=== PATIENT | female | born 1940 | race Caucasian/White ===

== ENCOUNTER 2019-07-22 17:13 | Inpatient (IN) ==
[2019-07-22 17:44] LABS: Hematocrit (blood only) 36.5 % (37-47); Mean Corpuscular Hgb Conc 32.9 g/dL (32-36); Mean Corpuscular Volume 91.3 fL (80-100); Mean Platelet Volume 10.6 fL (7.4-10.4); Platelet Count 197 K/uL (130-400); RDW Coefficient of Variation 16.8 % (11.5-14.5); White Blood Count 1.58 K/uL (4.8-10.8)
[2019-07-22 17:58] LABS: INR 1.1 (0.9-1.1); Partial Thromboplastin Time 28.2 Seconds (21.0-31.0); Prothrombin Time 11.4 Seconds (9.0-12.0)
[2019-07-22] MEDS ORDERED: SODIUM CHLORIDE 0.9% 1000ML 1,000 ML IV ONE ×2 (18:00→18:49)
[2019-07-22] MEDS ORDERED: ALBUT/IPRATROP 3MG/0.5MG NEB 3 ML VIAL NEB ONE (18:01)
[2019-07-22 18:02] LABS: Alanine Aminotransferase 60 U/L (12-78); Albumin Globulin Ratio 0.5 (0.9-2); Albumin Level 2.5 gm/dl (3.4-5.0); Alkaline Phosphatase 107 U/L (45-117); BUN Creatinine Ratio 26.5 (10-20); Bilirubin,Total 0.9 mg/dl (0.2-1); Blood Urea Nitrogen 30 mg/dl (7-18); Calcium 9.7 mg/dl (8.5-10.1); Carbon Dioxide 22 mmol/L (21-32); Chloride 108 mmol/L (98-107); Creatinine Clr Calc Pharmacy 34.1 ml/min; Est GFR (African American) 54.1; Est GFR (Non-African American) 46.7; Globulin 5.3 gm/dl (2.5-4.0); Glucose 106 mg/dl (70-99); Sodium 137 mmol/L (136-145); Total Protein 7.8 gm/dl (6.4-8.2); Troponin I < 0.015 ng/ml (0-0.045)
--- NOTE | 2019-07-22 18:05 | XRay Report ---
XR chest 1V portable CLINICAL HISTORY: 78 years-old Female presenting with SOB. TECHNIQUE: Portable upright AP view of the chest was obtained. COMPARISON: 04/22/2014. FINDINGS: Atherosclerosis of the aortic arch. Cardiac silhouette enlarged. Pulmonary vascular prominence. Bronc hial wall cuffing. Prominence of the interstitium. Reticular and more dense opacities in the left mid to lower lung and right lung base. No large effusion or pneumothorax. Degenerative changes of the th oracic spine. Upper abdomen normal. IMPRESSION: 1. Cardiac megaly with volume overload and congestive change. This is in part on a chronic basis. 2. Chronic basilar predominant bilateral infiltrates. Superimposed infection is not excluded. This c ould alternatively relate to chronic aspiration among other chronic lung disease. Electronically signed by: Chip Garza M.D. 07/22/2019 6:03 PM
[2019-07-22 18:41] LABS: Base Excess VBG -5.1 mEq/L; HCO3 VBG 22 mmol/L; Oxygen Saturation VBG < 60.0 %; PCO2 VBG 46 mmHg (38-50); PO2 VBG 23 mmHg; pH VBG 7.29 (7.36-7.41)
[2019-07-22 18:44] LABS: ALC (manual) 0.97 K/uL (1.2-3.4); ANC (manual) 0.43 K/uL (1.4-6.5); Eosinophils # (manual) 0.09 K/uL (0-0.5); Eosinophils % (manual) 5.5 %; Lymphocytes % (manual) 44.4 %; Monocytes # (manual) 0.09 K/uL (0.11-0.59); Monocytes % (manual) 5.5 %; Neutrophils # (manual) 0.43 K/uL (1.4-6.5); Neutrophils % (manual) 27.3 %; Reactive Lymphocytes # (manual) 0.27 K/uL; Reactive Lymphocytes % (manual) 17.3 %
[2019-07-22] MEDS ORDERED: PIPERACILLIN/TAZOBACTAM 4.5 GM/120 ML BAG IV ONE (18:47)
[2019-07-22] MEDS ORDERED: PIPERACILL/TAZOBAC CONSULT ACTIVE PRN (18:47)
[2019-07-22] MEDS ORDERED: VANCOMYCIN CONSULT ACTIVE PRN (18:48)
[2019-07-22] MEDS ORDERED: VANCOMYCIN HCL 1,250 MG in SODIUM CHLORIDE 0.9% 500 ML IV ONE (18:48)
[2019-07-22] MEDS ORDERED: VANCOMYCIN HCL MG in SODIUM CHLORIDE 0.9% 500 ML IV ONE (18:48)
[2019-07-22] MEDS ORDERED: OPTIRAY 320 125ml IV PRN (18:49)
--- NOTE | 2019-07-22 19:10 | CT Scan Report ---
CT angio chest PE protocol CLINICAL HISTORY: 78 years-old Female presenting with shortness of breath, clinical concern for pulmo nary embolus. TECHNIQUE: Multidetector CT angiography of the chest was performed after administration of intravenou s contrast. 3-D volumetric and/or maximum intensity projection (MIP) images were subsequently reconst ructed for review. IV contrast: 118 mL of Optiray 320. One or more dose lowering techniques were used consistent with the principles of ALARA (as low as reasonably achievable), including automatic expos ure control, mA or kV adjustment to individual patient size, and/or use of iterative reconstruction. COMPARISON: 04/22/2014. CT DOSE (mGy.cm): The estimated cumulative dose is 198.30 mGy.cm. FINDINGS: O[employer] Worker topogram: Diffuse reticular opacities. Pulmonary vasculature: The study is suboptimal for the assessment of the pulmonary vascular tree secondary to respiratory mo tion artifact. Allowing for limited image quality, no central filling defect to suggest pulmonary emb olus. Main pulmonary artery normal in size though the right and left pulmonary arteries are mildly en gorged. Mild flattening of the interventricular septum. No intracardiac filling defect. No reflux of contrast into the hepatic veins. Remaining chest: Soft tissues: Normal thyroid and thoracic inlet. Multiple prominent mediastinal lymph nodes in the ri ght paratracheal, prevascular, aortopulmonary window, and subcarinal regions. Bilateral hilar lymphad enopathy. These have progressed since the prior exam though some degree of lymphadenopathy was eviden t previously. 4 vessel aortic arch. Normal heart size. Coronary artery calcification. No pericardial or pleural effusion. The esophagus is mildly dilated. Lungs and airways: No pneumothorax. Central airways patent. Bronchiectasis is evident diffusely. Diff use peribronchial vascular bundle thickening. Significant interlobular septal thickening with mild en largement of the pulmonary arteries. Extensive solid reticular consolidation with a basilar predomina nce though there is also significant involvement of nondependent regions of the upper lobes extending to the apices more so on the right. The degree of peribronchovascular consolidation has significantl y progressed from prior. Patchy groundglass opacity is also superimposed more so in the right lung wi th upper lung predominance. Musculoskeletal: Degenerative changes of the spine. IMPRESSION: 1. Significant interval progression of peribronchovascular consolidation involving both lungs with a basilar predominance though involvement extends to the apices. This is consistent with progression o f fibrotic lung disease. 2. Patchy groundglass opacities more so in the upper lobes and greater on the right concerning for s uperimposed bronchopneumonia. 3. Allowing for limitations image quality, no pulmonary embolus. 4. Possible underlying pulmonary artery hypertension. 5. Esophageal dilatation could suggest underlying disease such as scleroderma among other etiologies . 6. Progressive lymphadenopathy likely related to the underlying inflammatory disease. Electronically signed by: Chip Garza M.D. 07/22/2019 7:08 PM
[2019-07-22] MEDS ORDERED: DOXYCYCLINE HYCLATE 100 MG in DEXTROSE 5% 100 ML IV STA (19:30)
[2019-07-22 19:50] LABS: Potassium 3.4 mmol/L (3.5-5.1)
--- NOTE | 2019-07-22 19:53 | Emergency Department Note ---
Entered by Salina Mercer acting as a scribe for History of Present Illness General Chief complaint: Shortness of Breath/Dyspnea Stated complaint: diff. breathing/cough Source: patient and other (nursing staff) History of Present Illness Onset (ago): day(s) 3 Location: chest Pain Consistency: + other (worsening) Quality: + other (shortness of breath) Relieved By: not by medication (nebulizers) Associated symptoms: + cough and + other (chronic back and leg pain); no chest pain The patient is a 78 year old female who presents to the Emergency Room with complaints of worsening shortness of breath starting 3 days ago. The patient states that for the last 3 days she has had a productive cough with green sputum. She reports that with it she has been short of breath. She states that she has been trying to use her nebulizers with no relief. She notes that she has still been smoking daily. Nursing staff notes that he received a breathing treatment and Solumedrol prior to arrival by EMS. They note that she was hypoxic for them as well. The patient complains of chronic back and leg pain. The patient denies being on oxygen at home and chest pain. Home Medications Home Medications Medication Instructions Recorded Confirmed Type ASPIRIN (ASPIRIN CHEWABLE) 81 mg PO DAILY #0 04/22/14 History CHOLECALCIFEROL (Vitamin D) 1,000 inter.unit PO DAILY #0 tab 04/22/14 History Lisinopril (Zestril) 5 mg PO QAM #0 tab 04/22/14 History Metoprolol Tartrate (Lopressor) 25 mg PO BID #0 tab 04/22/14 History (Lopressor) OTC COLD CAPS 1 - 2 cap PO DIRECTED #0 04/22/14 History Simvastatin (Zocor) 40 mg PO QPM #0 tab 04/22/14 History Cefuroxime Axetil 500 mg PO BID 4 Days #0 04/28/14 Rx Diphenhy/Alum/Mag/Sucralfa (Magic 1 tsp PO Q4H PRN 5 Days #0 ml 04/28/14 Rx Swizzle - Diphenhy/Alum/Mag/Sucralfa) GUAIFENESIN (ROBITUSSIN) 100 mg PO Q6H PRN 5 Days #0 04/28/14 Rx Prednisone 20 mg PO BID #20 tab 04/28/14 Rx atorvastatin 20 mg PO DAILY 07/22/19 07/22/19 History folic acid 1 mg PO [id number] 07/22/19 07/22/19 History methotrexate sodium 15 mg PO WK 07/22/19 07/22/19 History Allergies Allergy/AdvReac Type Severity Reaction Status Date / Time albuterol AdvReac Intermediate JITTERY Verified 04/23/14 12:15 FROM ALBUTEROL NEBS Past Med/Surg History Medical History Fibrotic lung diseases (Acute) HTN (hypertension) (Acute) Hyperlipemia (Acute) Myocardial infarct (Acute) CVA (cerebral infarction) (Acute) Pneumonia (Acute) Respiratory distress (Acute 04/22/14) History of COPD Surgical History H/O cardiac catheterization (Acute) Family History Other Family history non-contributory Social History marital status: current occupational status: retired Feels Safe at Home: Yes Smoking Status: Current every day smoker Review of Systems See HPI for pertinent positives & negatives. and A total of 10 systems reviewed and were otherwise negative Physical Exam Vital Signs Vital Signs - 24 hr 07/22/19 17:32 07/22/19 17:33 07/22/19 17:59 Sepsis Recent Fever Within 48 Hours No Sepsis Action Taken by Nursing No Action Required Pulse Oximetry Post Tiitration Pulse Rate 126 H 124 H 118 H Pulse Rate [Apical] Pulse Rate from SpO2 Sensor 124 H 120 H Pulse Rhythm Regular Pulse Strength Normal Respiratory Rate 21 34 H 33 H Respiratory Effort / Characteristics Labored Respiratory Depth Normal Respiratory Pattern Regular Blood Pressure 107/70 101/65 Blood Pressure Mean 82 77 Blood Pressure Position Lying Pulse Oximetry 88 L 93 90 Oxygen Delivery Method Room Air Oxygen Flow Rate 4 07/22/19 18:00 07/22/19 18:02 07/22/19 18:14 Sepsis Recent Fever Within 48 Hours Sepsis Action Taken by Nursing Pulse Oximetry Post Tiitration 91 Pulse Rate 120 H 119 H Pulse Rate [Apical] Pulse Rate from SpO2 Sensor 120 H 123 H Pulse Rhythm Pulse Strength Respiratory Rate 30 H 29 H Respiratory Effort / Characteristics Respiratory Depth Respiratory Pattern Blood Pressure 101/82 Blood Pressure Mean 88 Blood Pressure Position Pulse Oximetry 91 91 88 L Oxygen Delivery Method Room Air Oxygen Flow Rate 4 07/22/19 18:29 07/22/19 18:30 07/22/19 19:00 Sepsis Recent Fever Within 48 Hours Sepsis Action Taken by Nursing Pulse Oximetry Post Tiitration Pulse Rate 113 H 107 H Pulse Rate [Apical] 114 H Pulse Rate from SpO2 Sensor 113 H 107 H Pulse Rhythm Pulse Strength Respiratory Rate 26 H 28 H 28 H Respiratory Effort / Characteristics Spontaneous Respiratory Depth Respiratory Pattern Blood Pressure 96/69 L Blood Pressure Mean 78 Blood Pressure Position Pulse Oximetry 93 94 95 Oxygen Delivery Method Nasal Cannula Oxygen Flow Rate 4 07/22/19 19:30 Sepsis Recent Fever Within 48 Hours Sepsis Action Taken by Nursing Pulse Oximetry Post Tiitration Pulse Rate 117 H Pulse Rate [Apical] Pulse Rate from SpO2 Sensor 117 H Pulse Rhythm Pulse Strength Respiratory Rate 31 H Respiratory Effort / Characteristics Respiratory Depth Respiratory Pattern Blood Pressure 109/66 Blood Pressure Mean 80 Blood Pressure Position Pulse Oximetry 98 Oxygen Delivery Method Oxygen Flow Rate GENERAL: Awake, alert, weak appearing on O2 HENT: Normocephalic, atraumatic. EYES: Normal conjunctiva. Sclera non-icteric. NECK: Supple. No nuchal rigidity. RESPIRATORY: Increased work of breathing. Diffuse wheezes. CARDIAC: Tachycardic rate. Normal rhythm. Extremities warm and well perfused. GI: Soft, non-distended. No tenderness to palpation. RECTAL: Deferred. MUSCULOSKELETAL: Atraumatic. Chest examination reveals no tenderness. LOWER EXTREMITIES: Calves are equal size bilaterally and non-tender. No edema NEURO: Normal sensorium. No sensory or motor deficits noted. No facial droop. SKIN: Warm and dry. No rash or jaundice noted. Course 1800: Past medical records reviewed. The patient was evaluated in room B10. A complete history and physical exam was performed. 1910: I reevaluated the patient and updated her on her test results. I discussed the treatment plan with her. She verbally agrees and understands. 1920: I discussed the patient's case with Dr. Mihaela Ahuja. He will evaluate the patient for further management. Consultations Consultation #1: I discussed the patient's case with Dr. Mihaela Ahuja. He will evaluate the patient for further management. Time: 19:20 Administered Medications Vancomycin HCl 1,250 mg/ (Sodium Chloride) 525 mls @ 200 mls/hr IV NOW ONE Stop: 07/22/19 21:25 Last Admin: 07/22/19 19:26 Dose: 200 mls/hr Documented by: [id number] Ioversol (Optiray 320 125ml) 118 ml IV ONCE PRN PRN Reason: Interaction Checking Stop: 07/26/19 18:48 Last Admin: 07/22/19 18:49 Dose: 118 ml Documented by: [id number] Discontinued Medications Albuterol (Duoneb) 12 ml NEB ONE ONE Stop: 07/22/19 18:02 Last Admin: 07/22/19 18:23 Dose: 12 ml Documented by: [id number] Sodium Chloride (Nss 1000ml) 1,000 mls @ 999 mls/hr IV .Q1H1M ONE Stop: 07/22/19 19:00 Last Infusion: 07/22/19 19:06 Dose: 0 mls/hr Documented by: [id number] Admin: 07/22/19 18:13 Dose: 999 mls/hr Documented by: [id number] Piperacillin Sod/Tazobactam Sod (Zosyn) 4.5 gm in 120 mls @ 240 mls/hr IV NOW ONE Stop: 07/22/19 19:16 Last Infusion: 07/22/19 19:28 Dose: 0 mls/hr Documented by: [id number] Admin: 07/22/19 19:02 Dose: 240 mls/hr Documented by: [id number] Sodium Chloride (Nss 1000ml) 1,000 mls @ 999 mls/hr IV .Q1H1M ONE Stop: 07/22/19 19:49 Last Admin: 07/22/19 19:02 Dose: 999 mls/hr Documented by: [id number] Medical Decision Making Differential Diagnosis Differential diagnoses includes but is not limited to pneumonia, bronchitis, COPD/Asthma exacerbation, pneumothorax, pulmonary embolism, congestive heart failure, acute coronary syndrome Medical Records Attestation: I reviewed the patient's medical records. Home Medications Current Medication List: was personally reviewed by me Laboratory Data Attestation: I reviewed the patient's lab results. Result diagrams: 07/22/19 17:28 07/22/19 19:26 Lab Results 07/22/19 07/22/19 07/22/19 Range/Units 17:28 17:28 17:28 WBC 1.58 L (4.8-10.8) K/uL RBC 4.00 L (4.2-5.4) M/uL Hgb 12.0 (12.0-16.0) g/dL Hct 36.5 L (37-47) % MCV 91.3 (80-100) fL MCH 30.0 (25-34) pg MCHC 32.9 (32-36) g/dL RDW Std Deviation 56.0 H (36.4-46.3) fL RDW Coeff of Jose Manuel 16.8 H (11.5-14.5) % Plt Count 197 (130-400) K/uL MPV 10.6 H (7.4-10.4) fL Neutrophils % (Manual) 27.3 % Lymphocytes % (Manual) 44.4 % Reactive Lymphs % (Man) 17.3 % Monocytes % (Manual) 5.5 % Eosinophils % (Manual) 5.5 % Neutrophils # (Manual) 0.43 L (1.4-6.5) K/uL Total Absolute Neuts 0.43 L* (1.4-6.5) K/uL Lymphocytes # (Manual) 0.70 L (1.2-3.4) K/uL Reactive Lymphs # 0.27 K/uL Total Abs Lymphocytes 0.97 L (1.2-3.4) K/uL Monocytes # (Manual) 0.09 L (0.11-0.59) K/uL Eosinophils # (Manual) 0.09 (0-0.5) K/uL PT 11.4 (9.0-12.0) Seconds INR 1.1 (0.9-1.1) APTT 28.2 (21.0-31.0) Seconds PTT Ratio 1.0 VBG pH (7.36-7.41) VBG pCO2 (38-50) mmHg VBG pO2 mmHg VBG HCO3 mmol/L VBG O2 Saturation % VBG Base Excess mEq/L Barometric Pressure mm/Hg Sodium 137 (136-145) mmol/L Potassium (3.5-5.1) mmol/L Chloride 108 H (98-107) mmol/L Carbon Dioxide 22 (21-32) mmol/L Anion Gap 7.0 (3-11) BUN 30 H (7-18) mg/dl Creatinine 1.14 (0.6-1.2) mg/dl Est Cr Clr Drug Dosing 34.1 ml/min Est GFR ( Amer) 54.1 Est GFR (Non-Af Amer) 46.7 BUN/Creatinine Ratio 26.5 H (10-20) Glucose 106 H (70-99) mg/dl Lactate (0.4-2.0) mmol/L Calcium 9.7 (8.5-10.1) mg/dl Total Bilirubin 0.9 (0.2-1) mg/dl AST (15-37) U/L ALT 60 (12-78) U/L Alkaline Phosphatase 107 (45-117) U/L Troponin I < 0.015 (0-0.045) ng/ml Total Protein 7.8 (6.4-8.2) gm/dl Albumin 2.5 L (3.4-5.0) gm/dl Globulin 5.3 H (2.5-4.0) gm/dl Albumin/Globulin Ratio 0.5 L (0.9-2) 07/22/19 07/22/19 07/22/19 Range/Units 18:08 18:28 19:26 WBC (4.8-10.8) K/uL RBC (4.2-5.4) M/uL Hgb (12.0-16.0) g/dL Hct (37-47) % MCV (80-100) fL MCH (25-34) pg MCHC (32-36) g/dL RDW Std Deviation (36.4-46.3) fL RDW Coeff of Jose Manuel (11.5-14.5) % Plt Count (130-400) K/uL MPV (7.4-10.4) fL Neutrophils % (Manual) % Lymphocytes % (Manual) % Reactive Lymphs % (Man) % Monocytes % (Manual) % Eosinophils % (Manual) % Neutrophils # (Manual) (1.4-6.5) K/uL Total Absolute Neuts (1.4-6.5) K/uL Lymphocytes # (Manual) (1.2-3.4) K/uL Reactive Lymphs # K/uL Total Abs Lymphocytes (1.2-3.4) K/uL Monocytes # (Manual) (0.11-0.59) K/uL Eosinophils # (Manual) (0-0.5) K/uL PT (9.0-12.0) Seconds INR (0.9-1.1) APTT (21.0-31.0) Seconds PTT Ratio VBG pH 7.29 L (7.36-7.41) VBG pCO2 46 (38-50) mmHg VBG pO2 23 mmHg VBG HCO3 22 mmol/L VBG O2 Saturation < 60.0 % VBG Base Excess -5.1 mEq/L Barometric Pressure 737.4 mm/Hg Sodium (136-145) mmol/L Potassium Cancelled (3.5-5.1) mmol/L Chloride (98-107) mmol/L Carbon Dioxide (21-32) mmol/L Anion Gap (3-11) BUN (7-18) mg/dl Creatinine (0.6-1.2) mg/dl Est Cr Clr Drug Dosing ml/min Est GFR ( Amer) Est GFR (Non-Af Amer) BUN/Creatinine Ratio (10-20) Glucose (70-99) mg/dl Lactate 3.7 H* (0.4-2.0) mmol/L Calcium (8.5-10.1) mg/dl Total Bilirubin (0.2-1) mg/dl AST Cancelled (15-37) U/L ALT (12-78) U/L Alkaline Phosphatase (45-117) U/L Troponin I (0-0.045) ng/ml Total Protein (6.4-8.2) gm/dl Albumin (3.4-5.0) gm/dl Globulin (2.5-4.0) gm/dl Albumin/Globulin Ratio (0.9-2) 07/22/19 Range/Units 19:26 WBC (4.8-10.8) K/uL RBC (4.2-5.4) M/uL Hgb (12.0-16.0) g/dL Hct (37-47) % MCV (80-100) fL MCH (25-34) pg MCHC (32-36) g/dL RDW Std Deviation (36.4-46.3) fL RDW Coeff of Jose Manuel (11.5-14.5) % Plt Count (130-400) K/uL MPV (7.4-10.4) fL Neutrophils % (Manual) % Lymphocytes % (Manual) % Reactive Lymphs % (Man) % Monocytes % (Manual) % Eosinophils % (Manual) % Neutrophils # (Manual) (1.4-6.5) K/uL Total Absolute Neuts (1.4-6.5) K/uL Lymphocytes # (Manual) (1.2-3.4) K/uL Reactive Lymphs # K/uL Total Abs Lymphocytes (1.2-3.4) K/uL Monocytes # (Manual) (0.11-0.59) K/uL Eosinophils # (Manual) (0-0.5) K/uL PT (9.0-12.0) Seconds INR (0.9-1.1) APTT (21.0-31.0) Seconds PTT Ratio VBG pH (7.36-7.41) VBG pCO2 (38-50) mmHg VBG pO2 mmHg VBG HCO3 mmol/L VBG O2 Saturation % VBG Base Excess mEq/L Barometric Pressure mm/Hg Sodium (136-145) mmol/L Potassium 3.4 L (3.5-5.1) mmol/L Chloride (98-107) mmol/L Carbon Dioxide (21-32) mmol/L Anion Gap (3-11) BUN (7-18) mg/dl Creatinine (0.6-1.2) mg/dl Est Cr Clr Drug Dosing ml/min Est GFR ( Amer) Est GFR (Non-Af Amer) BUN/Creatinine Ratio (10-20) Glucose (70-99) mg/dl Lactate (0.4-2.0) mmol/L Calcium (8.5-10.1) mg/dl Total Bilirubin (0.2-1) mg/dl AST (15-37) U/L ALT (12-78) U/L Alkaline Phosphatase (45-117) U/L Troponin I (0-0.045) ng/ml Total Protein (6.4-8.2) gm/dl Albumin (3.4-5.0) gm/dl Globulin (2.5-4.0) gm/dl Albumin/Globulin Ratio (0.9-2) Imaging Data Radiologist's Impression: Radiology results as stated below per my review and the radiologist's interpretation: XR chest 1V portable CLINICAL HISTORY: 78 years-old Female presenting with SOB. TECHNIQUE: Portable upright AP view of the chest was obtained. COMPARISON: 04/22/2014. FINDINGS: Atherosclerosis of the aortic arch. Cardiac silhouette enlarged. Pulmonary vascular prominence. Bronchial wall cuffing. Prominence of the interstitium. Reticular and more dense opacities in the left mid to lower lung and right lung base. No large effusion or pneumothorax. Degenerative changes of the thoracic spine. Upper abdomen normal. IMPRESSION: 1. Cardiac megaly with volume overload and congestive change. This is in part on a chronic basis. 2. Chronic basilar predominant bilateral infiltrates. Superimposed infection is not excluded. This could alternatively relate to chronic aspiration among other chronic lung disease. Electronically signed by: Chip Garza M.D. 07/22/2019 6:[address] angio chest PE protocol CLINICAL HISTORY: 78 years-old Female presenting with shortness of breath, clinical concern for pulmonary embolus. TECHNIQUE: Multidetector CT angiography of the chest was performed after administration of intravenous contrast. 3-D volumetric and/or maximum intensity projection (MIP) images were subsequently reconstructed for review. IV contrast: 118 mL of Optiray 320. One or more dose lowering techniques were used consistent with the principles of ALARA (as low as reasonably achievable), including automatic exposure control, mA or kV adjustment to individual patient size, and/or use of iterative reconstruction. COMPARISON: 04/22/2014. CT DOSE (mGy.cm): The estimated cumulative dose is 198.30 mGy.cm. FINDINGS: [employer] topogram: Diffuse reticular opacities. Pulmonary vasculature: The study is suboptimal for the assessment of the pulmonary vascular tree secondary to respiratory motion artifact. Allowing for limited image quality, no central filling defect to suggest pulmonary embolus. Main pulmonary artery normal in size though the right and left pulmonary arteries are mildly engorged. Mild flattening of the interventricular septum. No intracardiac filling defect. No reflux of contrast into the hepatic veins. Remaining chest: Soft tissues: Normal thyroid and thoracic inlet. Multiple prominent mediastinal lymph nodes in the right paratracheal, prevascular, aortopulmonary window, and subcarinal regions. Bilateral hilar lymphadenopathy. These have progressed since the prior exam though some degree of lymphadenopathy was evident previously. 4 vessel aortic arch. Normal heart size. Coronary artery calcification. No pericardial or pleural effusion. The esophagus is mildly dilated. Lungs and airways: No pneumothorax. Central airways patent. Bronchiectasis is evident diffusely. Diffuse peribronchial vascular bundle thickening. Significant interlobular septal thickening with mild enlargement of the pulmonary arteries. Extensive solid reticular consolidation with a basilar predominance though there is also significant involvement of nondependent regions of the upper lobes extending to the apices more so on the right. The degree of peribronchovascular consolidation has significantly progressed from prior. Patchy groundglass opacity is also superimposed more so in the right lung with upper lung predominance. Musculoskeletal: Degenerative changes of the spine. IMPRESSION: 1. Significant interval progression of peribronchovascular consolidation involving both lungs with a basilar predominance though involvement extends to the apices. This is consistent with progression of fibrotic lung disease. 2. Patchy groundglass opacities more so in the upper lobes and greater on the right concerning for superimposed bronchopneumonia. 3. Allowing for limitations image quality, no pulmonary embolus. 4. Possible underlying pulmonary artery hypertension. 5. Esophageal dilatation could suggest underlying disease such as scleroderma among other etiologies. 6. Progressive lymphadenopathy likely related to the underlying inflammatory disease. Electronically signed by: Chip Garza M.D. 07/22/2019 7:08 PM ECG Data Attestation: I personally reviewed and interpreted this ECG as follows: Indication: SOB/dyspnea Rate (beats per minute): 125 Rhythm: sinus tachycardia Findings: + other (normal intervals); no PVC, no ST depression and no ST elevation Blood Pressure Blood Pressure Findings: Normal blood pressure Blood Pressure Disposition: did not require urgent referral MDM Narrative Patient is a 78-year-old female with a past medical history including pneumonia, CAD, interstitial lung disease, CVA, hypertension presenting today reporting increased shortness of breath for last 3 days with productive cough. Continues to smoke. EMS was called today and found the patient be 75% on room air. Denies any chest pain. DuoNeb's and Solu-Medrol given prior to arrival. Patient still hypoxic on room air here requiring nasal cannula oxygen. Patient's laboratory studies show new onset neutropenia without significant anemia. Chest x-ray completed with EKG chronic findings. Given this and the new hypoxia did complete a CT of the chest to further evaluate for possible pneumonia or PE. Troponins negative. Patient is afebrile here but have some concern with her increased oxygen requirement this could be infectious of blood cultures and lactate were obtained. VBG obtained. VBG shows a pH of 7.29 without significant hypercarbia. Patient is again neutropenic; ?from sepsis. Lactate elevated 3.7. Given 2 L normal saline bolus. Cultures were again obtained. CT scan with evidence of bronchopneumonia as well as progression of fibrotic lung disease. No evidence of PE. Vancomycin and Zosyn ordered for broad general coverage. Believe the patient suffering from sepsis likely pulmonary origin. Patient requires admission. [facility] hospitalist contacted. Impression & Plan Sepsis, Pneumonia, Neutropenia, COPD exacerbation Critical Care Time Critical Care Time: Yes Total Critical Care Time: 42 I have personally spent 42 minutes of critical care time in the direct management of this patient. This includes bedside care, interpretation of diagnostic studies, and testing, discussion with consultants, patient, and family members, and other required patient management activities. This 42 minutes is in excess of all separately billable procedures. Discharge Plan Visit Data Chief Complaint: Shortness of Breath/Dyspnea Stated Complaint: diff. breathing/cough ED Provider: Edmund Ferrell Discharge Problem: Sepsis, Pneumonia, Neutropenia, COPD exacerbation Patient Disposition: Being Evaluated by Hospitalist Forms Stand Alone Forms: My [facility] [place] XOR.MOTORS Prescriptions Prescriptions: No Action ASPIRIN (ASPIRIN CHEWABLE) 81 MG CHEWABLE TAB 81 mg PO DAILY Qty: 0 RF: 0 CHOLECALCIFEROL (Vitamin D) 1,000 INTER.UNIT tablet 1,000 inter.unit PO DAILY Qty: 0 RF: 0 Lisinopril (Zestril) 5 MG tablet 5 mg PO QAM Qty: 0 RF: 0 Metoprolol Tartrate (Lopressor) (Lopressor) 25 MG tablet 25 mg PO BID Qty: 0 RF: 0 OTC COLD CAPS 1 - 2 cap PO DIRECTED Qty: 0 RF: 0 Simvastatin (Zocor) 40 MG tablet 40 mg PO QPM Qty: 0 RF: 0 Cefuroxime Axetil 500 MG tablet 500 mg PO BID 4 Days Qty: 0 RF: 0 Diphenhy/Alum/Mag/Sucralfa (Magic Swizzle - Diphenhy/Alum/Mag/Sucralfa) suspension 1 tsp PO Q4H PRN (Reason: Pain) 5 Days Qty: 0 RF: 0 GUAIFENESIN (ROBITUSSIN) 100 MG/5 ML SOLTAB 100 mg PO Q6H PRN (Reason: Cough) 5 Days Qty: 0 RF: 0 Prednisone 20 MG tablet 20 mg PO BID Qty: 20 RF: 0 methotrexate sodium 2.5 mg tablet 15 mg PO WK RF: 0 folic acid 1 mg tablet 1 mg PO [id number] RF: 0 atorvastatin 20 mg tablet 20 mg PO DAILY RF: 0 Referrals Referrals: Vanessa Malone [Primary Care Provider] - Discharge Problem: Sepsis Qualifiers: Sepsis type: sepsis due to unspecified organism Sepsis acute organ dysfunction status: unspecified Qualified Code(s): A41.9 - Sepsis, unspecified organism Pneumonia Qualifiers: Pneumonia type: due to unspecified organism Laterality: unspecified laterality Lung location: unspecified part of lung Qualified Code(s): J18.9 - Pneumonia, unspecified organism Neutropenia Qualifiers: Neutropenia type: unspecified Qualified Code(s): D70.9 - Neutropenia, unspecified The scribe's documentation has been prepared under my direction and personally reviewed by me in its entirety. I confirm that the note above accurately reflect s all work, treatment, procedures, and medical decision making performed by me.
[2019-07-22] MEDS ORDERED: POTASSIUM CHLORIDE 20 MEQ TABCR PO STA (19:58)
[2019-07-22] MEDS ORDERED: LACTATED RINGER'S 1,000 ML IV ONE (19:58)
--- NOTE | 2019-07-22 19:59 | History & Physical Report ---
Date of Service July 22, 2019 Assessment & Plan (1) Acute hypoxemic respiratory failure: Secondary to RA-ILD exacerbation secondary to bilateral pneumonia No outpatient subspecialist follow-up. Severe sepsis SIRS plus lactic acid elevation plus hypoxemic respiratory failure secondary to above hx CAD, CVA as per records hypertension Off BP meds since 2 years ago Hypokalemia secondary to illness chronic pain as per records mood disorder, at baseline past tobacco abuse PCU Supplemental O2 Cultures, Zosyn, vancomycin IVF, follow lactic acid Pulmonary consult RE respiratory failure, ILD exacerbation Replace potassium DVT prophylaxis. Lovenox subcu Full code History of Present Illness Chief Complaint: Cough, S OB Primary Care Provider: Vanessa Malone History obtained from patient and records. Medical history significant for CAD, CVA, rheumatoid arthritis as per records, ILD as per ecords, hypertension, hyperlipidemia, chronic pain as per records, mood disorder, past tobacco abuse. Recent confinement [facility] April 2014 for bilateral pneumonia. Recent confinement [facility] December 2016 for neck surgery infection complicat ions. Postop patient noted to be hypoxemic/hypercarbic respiratory failure necessitating BiPAP. Interstitial lung disease attributed to rheumatoid arthritis as per records. BP meds stopped on discharge secondary to low blood pressure as per discharge note. Patient instructed to follow-up with Pulmonology and Rheumatology outpatient but was unable to comply. Few days history of worsening cough symptoms productive of greenish sputum with worsening shortness of breath. No chest pain. No aspiration. No relief with home nebulizer and outpatient steroid Rx initiated by PCP. Patient denies fluid retention. At home O2 sats noted to be in the 70s. DuoNeb and Solu-Medrol administered by EMS prior to ER arrival. At the ER, patient received IV vancomycin and Zosyn for sepsis. Medical History as above Surgical History : Neck surgery, hip replacement, partial thyroidectomy, cholecystectomy, hysterectomy, BTL, oviduct/ovary removal, knee surgery, a ppendectomy Family History : Lung cancer, cervical cancer, dementia, seizures Personal/Social history : Past tobacco abuse, no EtOH intake Allergies Allergy/AdvReac Type Severity Reaction Status Date / Time albuterol AdvReac Intermediate JITTERY Verified 04/23/14 12:15 FROM ALBUTEROL [facility] Home Medications Home Medications Medication Instructions Recorded Confirmed Type albuterol sulfate 2 puff INHALATION Q6H PRN 07/22/19 07/22/19 History amitriptyline 50 mg PO HS 07/22/19 07/22/19 History atorvastatin 20 mg PO DAILY 07/22/19 07/22/19 History escitalopram oxalate 20 mg PO QAM 07/22/19 07/22/19 History folic acid 1 mg PO [id number] 07/22/19 07/22/19 History gabapentin 300 mg PO TID 07/22/19 07/22/19 History methotrexate sodium 15 mg PO WK 07/22/19 07/22/19 History pantoprazole 20 mg PO DAILY 07/22/19 07/22/19 History tramadol 50 mg PO Q8H PRN 07/22/19 07/22/19 History Past Med/Surg History Medical History Fibrotic lung diseases (Acute) HTN (hypertension) (Acute) Hyperlipemia (Acute) Myocardial infarct (Acute) CVA (cerebral infarction) (Acute) Pneumonia (Acute) Respiratory distress (Acute 04/22/14) History of COPD Surgical History H/O cardiac catheterization (Acute) Family History Other Family history non-contributory Social History Preferred Language: Macedonian Communication Ability: Effective Wig Stylist Required: No Beliefs That Will Affect Care: None marital status: Current Living Situation: Family current occupational status: retired Other Information That Helps Us Care for You: No Feels Safe at Home: Yes Safety Concerns: Feels Safe At This Time Smoking Status: Unknown if ever smoked Hx Alcohol Use: No Hx Substance Use: No Review of Systems Review of Systems: As per HPI, all 10 systems reviewed, all other ROS negative Physical Exam Physical Exam: GENERAL: uncomfortable, respiratory distress SKIN: Normal color, warm HEENT: [place] palpebral conjunctivae, no ptosis, dry buccal mucosa, O2 mask in place NECK : Supple, no tenderness CHEST : Bilateral rhonchi, occasional expiratory wheezes, no tenderness HEART : Tachycardic, no obvious murmurs ABDOMEN: Some distention, nontender EXTREMITIES : No LE swelling/tenderness, no other conspicuous deformities noted NEUROLOGIC : Coherent, no facial asymmetry, no other gross focality Results & Data Vital Signs (Past 12 Hours) Vital Signs Pulse Pulse Resp BP Pulse Ox 07/22/19 19:30 117 H 31 H 109/66 98 07/22/19 19:00 107 H 28 H 96/69 L 95 07/22/19 18:30 113 H 28 H 94 07/22/19 18:29 114 H 26 H 93 07/22/19 18:14 88 L 07/22/19 18:02 119 H 29 H 91 07/22/19 18:00 120 H 30 H 101/82 91 07/22/19 17:59 118 H 33 H 101/65 90 07/22/19 17:33 124 H 34 H 93 07/22/19 17:32 126 H 21 107/70 88 L Laboratory Results Laboratory Results WBC 1.58 K/uL (4.8-10.8) L 07/22/19 17:28 RBC 4.00 M/uL (4.2-5.4) L 07/22/19 17:28 Hgb 12.0 g/dL (12.0-16.0) 07/22/19 17:28 Hct 36.5 % (37-47) L 07/22/19 17:28 MCV 91.3 fL (80-100) 07/22/19 17:28 MCH 30.0 pg (25-34) 07/22/19 17:28 MCHC 32.9 g/dL (32-36) 07/22/19 17:28 RDW Std Deviation 56.0 fL (36.4-46.3) H 07/22/19 17:28 RDW Coeff of Jose Manuel 16.8 % (11.5-14.5) H 07/22/19 17:28 Plt Count 197 K/uL (130-400) 07/22/19 17:28 MPV 10.6 fL (7.4-10.4) H 07/22/19 17:28 Neutrophils % (Manual) 27.3 % 07/22/19 17:28 Lymphocytes % (Manual) 44.4 % 07/22/19 17:28 Reactive Lymphs % (Man) 17.3 % 07/22/19 17:28 Monocytes % (Manual) 5.5 % 07/22/19 17:28 Eosinophils % (Manual) 5.5 % 07/22/19 17:28 Neutrophils # (Manual) 0.43 K/uL (1.4-6.5) L 07/22/19 17:28 Total Absolute Neuts 0.43 K/uL (1.4-6.5) L* 07/22/19 17:28 Lymphocytes # (Manual) 0.70 K/uL (1.2-3.4) L 07/22/19 17:28 Reactive Lymphs # 0.27 K/uL 07/22/19 17:28 Total Abs Lymphocytes 0.97 K/uL (1.2-3.4) L 07/22/19 17:28 Monocytes # (Manual) 0.09 K/uL (0.11-0.59) L 07/22/19 17:28 Eosinophils # (Manual) 0.09 K/uL (0-0.5) 07/22/19 17:28 PT 11.4 Seconds (9.0-12.0) 07/22/19 17:28 INR 1.1 (0.9-1.1) 07/22/19 17:28 APTT 28.2 Seconds (21.0-31.0) 07/22/19 17:28 PTT Ratio 1.0 07/22/19 17:28 VBG pH 7.29 (7.36-7.41) L 07/22/19 18:28 VBG pCO2 46 mmHg (38-50) 07/22/19 18:28 VBG pO2 23 mmHg 07/22/19 18:28 VBG HCO3 22 mmol/L 07/22/19 18:28 VBG O2 Saturation < 60.0 % 07/22/19 18:28 VBG Base Excess -5.1 mEq/L 07/22/19 18:28 Barometric Pressure 737.4 mm/Hg 07/22/19 18:28 Sodium 137 mmol/L (136-145) 07/22/19 17:28 Potassium 3.4 mmol/L (3.5-5.1) L 07/22/19 19:26 Potassium Cancelled 07/22/19 19:26 Chloride 108 mmol/L (98-107) H 07/22/19 17:28 Carbon Dioxide 22 mmol/L (21-32) 07/22/19 17:28 Anion Gap 7.0 (3-11) 07/22/19 17:28 BUN 30 mg/dl (7-18) H 07/22/19 17:28 Creatinine 1.14 mg/dl (0.6-1.2) 07/22/19 17:28 Est Cr Clr Drug Dosing 34.1 ml/min 07/22/19 17:28 Est GFR ( Amer) 54.1 07/22/19 17:28 Est GFR (Non-Af Amer) 46.7 07/22/19 17:28 BUN/Creatinine Ratio 26.5 (10-20) H 07/22/19 17:28 Glucose 106 mg/dl (70-99) H 07/22/19 17:28 Lactate 3.7 mmol/L (0.4-2.0) H* 07/22/19 18:08 Calcium 9.7 mg/dl (8.5-10.1) 07/22/19 17:28 Total Bilirubin 0.9 mg/dl (0.2-1) 07/22/19 17:28 AST Cancelled 07/22/19 19:26 ALT 60 U/L (12-78) 07/22/19 17:28 Alkaline Phosphatase 107 U/L (45-117) 07/22/19 17:28 Troponin I < 0.015 ng/ml (0-0.045) 07/22/19 17:28 Total Protein 7.8 gm/dl (6.4-8.2) 07/22/19 17:28 Albumin 2.5 gm/dl (3.4-5.0) L 07/22/19 17:28 Globulin 5.3 gm/dl (2.5-4.0) H 07/22/19 17:28 Albumin/Globulin Ratio 0.5 (0.9-2) L 07/22/19 17:[address] chest: 1. Significant interval progression of peribronchovascular consolidation involving both lungs with a basilar predominance though involvement extends to the apices. This is consistent with progression of fibrotic lung disease. 2. Patchy groundglass opacities more so in the upper lobes and greater on the right concerning for superimposed bronchopneumonia. 3. Allowing for limitations image quality, no pulmonary embolus. 4. Possible underlying pulmonary artery hypertension. 5. Esophageal dilatation could suggest underlying disease such as scleroderma among other etiologies. 6. Progressive lymphadenopathy likely related to the underlying inflammatory disease. EKG as per my interpretation : Rate 125, sinus tachycardia, LAD, LAFB, T wave flattening lateral leads
[2019-07-22 20:05] LABS: Magnesium 1.7 mg/dl (1.8-2.4); Thyroid Stimulating Hormone 1.28 uIu/ml (0.300-4.500)
[2019-07-22] MEDS ORDERED: MAGNESIUM SULFATE / D5W 1 GM/100 ML BAG IV ONE (20:15)
[2019-07-22 21:00] LABS: Influenza A virus by PCR Neg for Influ A (Neg); Influenza B virus by PCR Neg for Influ B (Neg)
[2019-07-22] MEDS ORDERED: PROMETHAZINE HCL 12.5 MG in SODIUM CHLORIDE 0.9% 50 ML IV PRN (21:03)
[2019-07-22] MEDS ORDERED: NITROGLYCERIN SL 0.4 MG/TAB TAB SL PRN (21:03)
[2019-07-22] MEDS ORDERED: NORMOSOL-R 1,000 ML IV SCH (22:00)
--- NOTE | 2019-07-22 22:02 | Pharmacy Report ---
Pharmacy Abx Initial Consult - Date of Service July 22, 2019 - Pharmacy Dosing Scope Date of Consult: 07/22/19 Consultation requested by: Dr. Chauhan Pharmacy is consulted to initiate vancomycin and Zosyn IV dosing therapy, order appropriate labs and adjust drug dose/frequency. - Subjective The patient is a 78 year old F admitted on 07/22/19 20:07. - Objective Height: 5 ft Weight: 61.2 kg Vital Signs (Past 12hrs): Vital Signs Temp Pulse Pulse Resp BP BP Pulse Ox 07/22/19 21:19 36.7 C 120 H 24 121/68 90 07/22/19 20:30 120 H 31 H 111/53 L 95 07/22/19 20:00 121 H 35 H 121/64 99 07/22/19 19:30 117 H 31 H 109/66 98 07/22/19 19:00 107 H 28 H 96/69 L 95 07/22/19 18:30 113 H 28 H 94 07/22/19 18:29 114 H 26 H 93 07/22/19 18:14 88 L 07/22/19 18:02 119 H 29 H 91 07/22/19 18:00 120 H 30 H 101/82 91 07/22/19 17:59 118 H 33 H 101/65 90 07/22/19 17:33 124 H 34 H 93 07/22/19 17:32 126 H 21 107/70 88 L Lab Results (24hrs): Laboratory Tests (24 Hours) 07/22/19 07/22/19 17:28 17:28 WBC 1.58 L Creatinine 1.14 Est Cr Clr Drug Dosing 34.1 Micro Results: 07/22/19 18:28 Aerobic Blood Culture - Pending Blood Anaerobic Blood Culture - Pending 07/22/19 18:08 Aerobic Blood Culture - Pending Blood Anaerobic Blood Culture - Pending - Assessment & Plan Assessment 78 year old F presented to [facility] ED on 07/22/19 with complaints of worsening shortness of breath (starting 3 days ago). Patient is a current every day smoker with a history of COPD (treated with albuterol only based on home med list). Admission labs: SCr: 1.14 mg/dL (CrCl: 34 mL/min), BUN: 30 mg/dL, BUN/Scr ratio: 26, WBC: 1.6, lactate 3.7 mmol/L - No recent SCr level to assess if this is baseline for the patient (suspect not given elevated BUN/SCr ratio) Plan Vancomycin and Zosyn for empiric treatment of possible pneumonia/sepsis Vancomycin IV * Estimated PK Parameters: Vd 0.7 L/kg, [place] .033 hr-1, t1/2 21 hr * BUN/SCr ratio elevated - SCr ordered for AM. Will adjust regimen as appropriate based on change in renal function. * Loading dose: 1250 mg (21 mg/kg) * Maintenance dose: 1000 mg IV (16 mg/kg) every 22 hours * Goal trough level for pneumonia/sepsis : 15 to 20 mcg/mL * Will order vanco trough if patient is to stay on vanco for more than 48 hours * MRSA swab ordered - will reassess need for vancomycin pending result Piperacillin/tazobactam * 4.5 g bolus administered over 30 minutes, then 3.375 g IV extended infusion every 8 hours for CrCl greater than 20 mL/min Pharmacy will continue to follow and will adjust dose/frequency as necessary. Thank you.
[2019-07-22] MEDS ORDERED: XOPENEX/ATROVENT 1.25mg/0.5MG NEB COMBO NEB PRN (22:27)
[2019-07-22] MEDS ORDERED: IPRATROPIUM BROMIDE NEB SOLN 0.02% 2.5 ML VIAL INH PRN (22:30)
[2019-07-22] MEDS ORDERED: LEVALBUTEROL 1.25MG/0.5ML NEB INH PRN (22:30)
[2019-07-22] MEDS: PIPERACILLIN/TAZOBACTAM 3.375 GM in DEXTROSE 5% 100 ML IV SCH (23:40)
[2019-07-23] MEDS: IPRATROPIUM BROMIDE NEB SOLN 0.02% 2.5 ML VIAL INH SCH ×4 (00:30→15:13)
[2019-07-23] MEDS: LEVALBUTEROL 1.25MG/0.5ML NEB INH SCH ×4 (00:30→15:13)
[2019-07-23] MEDS ORDERED: methylPREDNISolone 40 MG in SYRINGE 0 ML IV ONE (01:00)
[2019-07-23] MEDS ORDERED: XOPENEX/ATROVENT 1.25mg/0.5MG NEB COMBO NEB SCH (01:00)
[2019-07-23 01:23] LABS: Allen Test Pos (Pos); Base Excess ABG -7.5 mEq/L (-9-1.8); HCO3 ABG 19 mmol/L (19-24); PCO2 ABG 42 mmHg (35-46); PO2 ABG 57 mm/Hg (80-95); pH ABG 7.27 (7.35-7.45)
[2019-07-23] MEDS ORDERED: FUROSEMIDE 20 MG in SYRINGE 0 ML IV ONE (01:25)
[2019-07-23] MEDS ORDERED: MAGNESIUM SULFATE / D5W 1 GM/100 ML BAG IV ONE (01:45)
[2019-07-23] MEDS: POTASSIUM CHLORIDE / WTR 10 MEQ/100 ML PLCT IV SCH ×2 (02:00→02:55)
[2019-07-23 05:49] LABS: Hematocrit (blood only) 31.9 % (37-47); Hemoglobin 10.6 g/dL (12.0-16.0); Mean Corpuscular Hemoglobin 30.1 pg (25-34); Mean Corpuscular Hgb Conc 33.2 g/dL (32-36); Mean Corpuscular Volume 90.6 fL (80-100); Mean Platelet Volume 9.9 fL (7.4-10.4); Platelet Count 162 K/uL (130-400); RDW Coefficient of Variation 16.7 % (11.5-14.5); RDW Standard Deviation 54.7 fL (36.4-46.3); Red Blood Count 3.52 M/uL (4.2-5.4); White Blood Count 1.59 K/uL (4.8-10.8)
[2019-07-23 06:32] LABS: ALC (manual) 0.18 K/uL (1.2-3.4); ANC (manual) 1.31 K/uL (1.4-6.5); Echinocytes 1+; Lymphocytes # (manual) 0.18 K/uL (1.2-3.4); Lymphocytes % (manual) 11.5 %; Monocytes # (manual) 0.09 K/uL (0.11-0.59); Monocytes % (manual) 5.8 %; Neutrophils # (manual) 1.31 K/uL (1.4-6.5); Neutrophils % (manual) 82.7 %; Toxic Granulation 1+
[2019-07-23 06:41] LABS: Calcium 8.2 mg/dl (8.5-10.1); Creatinine Clr Calc Pharmacy 45.6 ml/min; Est GFR (African American) 77.1; Est GFR (Non-African American) 66.6; Magnesium 2.4 mg/dl (1.8-2.4); Potassium 4.2 mmol/L (3.5-5.1)
--- NOTE | 2019-07-23 07:27 | XRay Report ---
SINGLE VIEW CHEST CLINICAL HISTORY: Dyspnea. FINDINGS: An AP, portable, upright chest radiograph is compared to chest x-ray and chest CT dated 07/22/2019 as well as chest x-ray dated 04/22/2014. The examination is degraded by portable technique and patient rotation. The heart is top normal for projection. Changes of chronic interstitial lung diseas e have progressed from 2013. Superimposed airspace consolidation at the lung bases would be impossibl e to exclude. No large pleural effusion or pneumothorax is seen. The skeletal structures are osteopen ic. The bony thorax is grossly intact. IMPRESSION: 1. Changes of chronic interstitial lung disease have significantly progressed from 2013. There has be en no significant change from yesterday. 2. Superimposed airspace consolidation at the lung bases would be impossible exclude and clinical cor relation will be required. Electronically signed by: Mk Pcaheco M.D. 07/23/2019 7:26 AM
[2019-07-23] MEDS: PIPERACILLIN/TAZOBACTAM 3.375 GM in DEXTROSE 5% 100 ML IV SCH ×2 (07:51→18:17)
[2019-07-23] MEDS ORDERED: INFLUENZA VACCINE HIGH DOSE 65+ 0.5 ML SYR IM ONE (08:00)
[2019-07-23] MEDS ORDERED: INFLUENZA ADMINISTRATION CHARGE ONE (08:00)
[2019-07-23] MEDS: ASPIRIN 81 MG ECTAB PO SCH (08:10)
[2019-07-23] MEDS: FOLIC ACID 1 MG TAB PO SCH (08:11)
[2019-07-23] MEDS: ESCITALOPRAM OXALATE 20 MG TAB PO SCH (08:11)
[2019-07-23] MEDS: ATORVASTATIN 20 MG TAB PO SCH (08:12)
[2019-07-23] MEDS: ENOXAPARIN INJ 30 MG/0.3 ML SYR SQ SCH (08:13)
[2019-07-23] MEDS: GABAPENTIN 300 MG CAP PO SCH ×3 (08:14→20:32)
[2019-07-23] MEDS: PANTOprazole 40 MG TAB PO SCH (08:15)
[2019-07-23] MEDS ORDERED: methylPREDNISolone 40 MG in SYRINGE 0 ML IV SCH (09:00)
[2019-07-23 09:13] LABS: Base Excess ABG -3.9 mEq/L (-9-1.8); HCO3 ABG 21 mmol/L (19-24); PCO2 ABG 37 mmHg (35-46); PO2 ABG 96 mm/Hg (80-95); pH ABG 7.37 (7.35-7.45)
[2019-07-23 09:14] LABS: Allen Test Pos (Pos)
[2019-07-23] MEDS ORDERED: methylPREDNISolone 20 MG in SYRINGE 0 ML IV ONE (10:00)
[2019-07-23] MEDS ORDERED: ACETYLCYSTEINE 10% INHAL SOLN 4 ML **DISPENSED BY RESP. INH SCH (11:00)
--- NOTE | 2019-07-23 16:40 | Hospitalist Progress Note ---
Date of Service July 23, 2019 Assessment & Plan (1) Acute hypoxemic respiratory failure: Secondary to RA-ILD exacerbation secondary to bilateral pneumonia CT chest noted Broaden antibiotics to Zosyn plus doxycycline Recent nebs to every 4 hours albuterol and ipratropium Increase Solu-Medrol to 60 mg every 8 hours Pulmonary consult placed Severe sepsis SIRS plus lactic acid elevation plus hypoxemic respiratory failure secondary to above Lactic acidosis resolved Monitor closely hx CAD, CVA as per records Continue usual medications hypertension Stable so far Hypokalemia Resolved chronic pain as per records Continue PRN analgesics mood disorder, at baseline past tobacco abuse PCU DVT prophylaxis. Lovenox subcu Full code Subjective Follow-up for acute hypoxic respiratory failure, bilateral pneumonia Seen resting in bed, not in distress, nasal cannula 5 L States she feels slightly better compared to yesterday No active shortness of breath, still has cough, with intermittent sputum Denies chest pain, palpitations, dizziness No other symptoms Review of Systems Review of Systems: All systems reviewed & are unremarkable except as noted in HPI & below Physical Exam Physical Exam: General- oriented x 3, not in distress, speaks in sentences with minimal effort or accessory muscle use Head- atraumatic Eyes- PERRL, EOMI, anicteric ENT- oropharynx clear Neck- supple, no JVD, no adenopathy, no thyromegaly; carotids +2/2, no bruits appreciated Lungs-positive crackles mild wheezing bilaterally Heart- normal rate, regular rhythm; no murmur, no gallop, no rub appreciated Abdomen- normal bowel sounds, nondistended, soft, nontender, no masses or hepatosplenomegaly Extremities- no pretibial edema, no calf tenderness; peripheral pulses intact Neuro- alert, oriented x 3; CN 2-12 grossly intact; motor 5/5 bilaterally;sensation 100% on all extremities; no other gross focal neurologic deficits Skin- warm & dry Results & Data Vital Signs (Past 12 Hours) Vital Signs Temp Pulse Pulse Resp BP Pulse Ox Pulse Ox 07/23/19 15:54 36.6 C 92 H 16 113/62 93 07/23/19 15:15 95 H 22 96 07/23/19 13:34 96 07/23/19 13:20 90 07/23/19 11:44 36.9 C 95 H 28 H 126/81 95 07/23/19 11:18 100 H 22 95 07/23/19 08:00 36.7 C 96 H 28 H 126/75 93 Pulse Ox Pulse Ox 07/23/19 15:54 07/23/19 15:15 07/23/19 13:34 07/23/19 13:20 90 76 L 07/23/19 11:44 07/23/19 11:18 07/23/19 08:00 Laboratory Results Laboratory Results - last 24 hr 07/22/19 07/22/19 07/22/19 17:28 17:28 17:28 WBC 1.58 L RBC 4.00 L Hgb 12.0 Hct 36.5 L MCV 91.3 MCH 30.0 MCHC 32.9 RDW Std Deviation 56.0 H RDW Coeff of Jose Manuel 16.8 H Plt Count 197 MPV 10.6 H Neutrophils % (Manual) 27.3 Lymphocytes % (Manual) 44.4 Reactive Lymphs % (Man) 17.3 Monocytes % (Manual) 5.5 Eosinophils % (Manual) 5.5 Neutrophils # (Manual) 0.43 L Total Absolute Neuts 0.43 L* Lymphocytes # (Manual) 0.70 L Reactive Lymphs # 0.27 Total Abs Lymphocytes 0.97 L Monocytes # (Manual) 0.09 L Eosinophils # (Manual) 0.09 Toxic Granulation Echinocytes PT 11.4 INR 1.1 APTT 28.2 PTT Ratio 1.0 ABG pH ABG pCO2 ABG pO2 ABG HCO3 ABG O2 Saturation ABG Base Excess Adilson Test VBG pH VBG pCO2 VBG pO2 VBG HCO3 VBG O2 Saturation VBG Base Excess Barometric Pressure Oxygen Given Sodium 137 Potassium Chloride 108 H Carbon Dioxide 22 Anion Gap 7.0 BUN 30 H Creatinine 1.14 Est Cr Clr Drug Dosing 34.1 Est GFR ( Amer) 54.1 Est GFR (Non-Af Amer) 46.7 BUN/Creatinine Ratio 26.5 H Glucose 106 H Lactate Calcium 9.7 Magnesium Total Bilirubin 0.9 AST ALT 60 Alkaline Phosphatase 107 Troponin I < 0.015 NT-Pro-B Natriuret Pep Total Protein 7.8 Albumin 2.5 L Globulin 5.3 H Albumin/Globulin Ratio 0.5 L Procalcitonin TSH Nasal Screen MRSA (PCR) Influenza Type A (PCR) Influenza Type B (PCR) 07/22/19 07/22/19 07/22/19 18:08 18:28 19:26 WBC RBC Hgb Hct MCV MCH MCHC RDW Std Deviation RDW Coeff of Jose Manuel Plt Count MPV Neutrophils % (Manual) Lymphocytes % (Manual) Reactive Lymphs % (Man) Monocytes % (Manual) Eosinophils % (Manual) Neutrophils # (Manual) Total Absolute Neuts Lymphocytes # (Manual) Reactive Lymphs # Total Abs Lymphocytes Monocytes # (Manual) Eosinophils # (Manual) Toxic Granulation Echinocytes PT INR APTT PTT Ratio ABG pH ABG pCO2 ABG pO2 ABG HCO3 ABG O2 Saturation ABG Base Excess Adilson Test VBG pH 7.29 L VBG pCO2 46 VBG pO2 23 VBG HCO3 22 VBG O2 Saturation < 60.0 VBG Base Excess -5.1 Barometric Pressure 737.4 Oxygen Given Sodium Potassium Cancelled Chloride Carbon Dioxide Anion Gap BUN Creatinine Est Cr Clr Drug Dosing Est GFR ( Amer) Est GFR (Non-Af Amer) BUN/Creatinine Ratio Glucose Lactate 3.7 H* Calcium Magnesium Total Bilirubin AST Cancelled ALT Alkaline Phosphatase Troponin I NT-Pro-B Natriuret Pep Total Protein Albumin Globulin Albumin/Globulin Ratio Procalcitonin TSH Nasal Screen MRSA (PCR) Influenza Type A (PCR) Influenza Type B (PCR) 07/22/19 07/22/19 07/22/19 19:26 19:40 20:21 WBC RBC Hgb Hct MCV MCH MCHC RDW Std Deviation RDW Coeff of Jose Manuel Plt Count MPV Neutrophils % (Manual) Lymphocytes % (Manual) Reactive Lymphs % (Man) Monocytes % (Manual) Eosinophils % (Manual) Neutrophils # (Manual) Total Absolute Neuts Lymphocytes # (Manual) Reactive Lymphs # Total Abs Lymphocytes Monocytes # (Manual) Eosinophils # (Manual) Toxic Granulation Echinocytes PT INR APTT PTT Ratio ABG pH ABG pCO2 ABG pO2 ABG HCO3 ABG O2 Saturation ABG Base Excess Adilson Test VBG pH VBG pCO2 VBG pO2 VBG HCO3 VBG O2 Saturation VBG Base Excess Barometric Pressure Oxygen Given Sodium Potassium 3.4 L Chloride Carbon Dioxide Anion Gap BUN Creatinine Est Cr Clr Drug Dosing Est GFR ( Amer) Est GFR (Non-Af Amer) BUN/Creatinine Ratio Glucose Lactate 3.4 H* Calcium Magnesium 1.7 L Total Bilirubin AST 43 H ALT Alkaline Phosphatase Troponin I NT-Pro-B Natriuret Pep 1065 Total Protein Albumin Globulin Albumin/Globulin Ratio Procalcitonin TSH 1.280 Nasal Screen MRSA (PCR) Influenza Type A (PCR) Neg for Influ A Influenza Type B (PCR) Neg for Influ B 07/22/19 07/23/19 07/23/19 22:15 00:13 01:09 WBC RBC Hgb Hct MCV MCH MCHC RDW Std Deviation RDW Coeff of Jose Manuel Plt Count MPV Neutrophils % (Manual) Lymphocytes % (Manual) Reactive Lymphs % (Man) Monocytes % (Manual) Eosinophils % (Manual) Neutrophils # (Manual) Total Absolute Neuts Lymphocytes # (Manual) Reactive Lymphs # Total Abs Lymphocytes Monocytes # (Manual) Eosinophils # (Manual) Toxic Granulation Echinocytes PT INR APTT PTT Ratio ABG pH 7.27 L ABG pCO2 42 ABG pO2 57 L ABG HCO3 19 ABG O2 Saturation 88.0 L ABG Base Excess -7.5 Adilson Test Pos VBG pH VBG pCO2 VBG pO2 VBG HCO3 VBG O2 Saturation VBG Base Excess Barometric Pressure Oxygen Given 5L Sodium Potassium Chloride Carbon Dioxide Anion Gap BUN Creatinine Est Cr Clr Drug Dosing Est GFR ( Amer) Est GFR (Non-Af Amer) BUN/Creatinine Ratio Glucose Lactate 2.8 H* Calcium Magnesium Total Bilirubin AST ALT Alkaline Phosphatase Troponin I NT-Pro-B Natriuret Pep Total Protein Albumin Globulin Albumin/Globulin Ratio Procalcitonin TSH Nasal Screen MRSA (PCR) Negative Influenza Type A (PCR) Influenza Type B (PCR) 07/23/19 07/23/19 07/23/19 05:12 05:12 05:17 WBC 1.59 L RBC 3.52 L Hgb 10.6 L Hct 31.9 L MCV 90.6 MCH 30.1 MCHC 33.2 RDW Std Deviation 54.7 H RDW Coeff of Jose Manuel 16.7 H Plt Count 162 MPV 9.9 Neutrophils % (Manual) 82.7 Lymphocytes % (Manual) 11.5 Reactive Lymphs % (Man) Monocytes % (Manual) 5.8 Eosinophils % (Manual) Neutrophils # (Manual) 1.31 L Total Absolute Neuts 1.31 L Lymphocytes # (Manual) 0.18 L Reactive Lymphs # Total Abs Lymphocytes 0.18 L Monocytes # (Manual) 0.09 L Eosinophils # (Manual) Toxic Granulation 1+ Echinocytes 1+ PT INR APTT PTT Ratio ABG pH ABG pCO2 ABG pO2 ABG HCO3 ABG O2 Saturation ABG Base Excess Adilson Test VBG pH VBG pCO2 VBG pO2 VBG HCO3 VBG O2 Saturation VBG Base Excess Barometric Pressure Oxygen Given Sodium 139 Potassium 4.2 D Chloride 111 H Carbon Dioxide 22 Anion Gap 6.0 BUN 20 H Creatinine 0.85 Est Cr Clr Drug Dosing 45.6 Est GFR ( Amer) 77.1 Est GFR (Non-Af Amer) 66.6 BUN/Creatinine Ratio 24.0 H Glucose 141 H Lactate 1.1 Calcium 8.2 L D Magnesium 2.4 Total Bilirubin AST ALT Alkaline Phosphatase Troponin I NT-Pro-B Natriuret Pep Total Protein Albumin Globulin Albumin/Globulin Ratio Procalcitonin TSH Nasal Screen MRSA (PCR) Influenza Type A (PCR) Influenza Type B (PCR) 07/23/19 07/23/19 08:56 16:07 WBC RBC Hgb Hct MCV MCH MCHC RDW Std Deviation RDW Coeff of Jose Manuel Plt Count MPV Neutrophils % (Manual) Lymphocytes % (Manual) Reactive Lymphs % (Man) Monocytes % (Manual) Eosinophils % (Manual) Neutrophils # (Manual) Total Absolute Neuts Lymphocytes # (Manual) Reactive Lymphs # Total Abs Lymphocytes Monocytes # (Manual) Eosinophils # (Manual) Toxic Granulation Echinocytes PT INR APTT PTT Ratio ABG pH 7.37 ABG pCO2 37 ABG pO2 96 H ABG HCO3 21 ABG O2 Saturation 95.0 ABG Base Excess -3.9 Adilson Test Pos VBG pH VBG pCO2 VBG pO2 VBG HCO3 VBG O2 Saturation VBG Base Excess Barometric Pressure 739.9 Oxygen Given 5L Sodium Potassium Chloride Carbon Dioxide Anion Gap BUN Creatinine Est Cr Clr Drug Dosing Est GFR ( Amer) Est GFR (Non-Af Amer) BUN/Creatinine Ratio Glucose Lactate Calcium Magnesium Total Bilirubin AST ALT Alkaline Phosphatase Troponin I NT-Pro-B Natriuret Pep Total Protein Albumin Globulin Albumin/Globulin Ratio Procalcitonin 4.26 H TSH Nasal Screen MRSA (PCR) Influenza Type A (PCR) Influenza Type B (PCR)
[2019-07-23] MEDS ORDERED: VANCOMYCIN HCL 1,000 MG in SODIUM CHLORIDE 0.9% 250 ML IV SCH (17:00)
--- NOTE | 2019-07-23 17:03 | Critical Care Consultation ---
Date of Consultation July 23, 2019 Assessment & Plan (1) Acute hypoxemic respiratory failure: Patient does appear to have chronic interstitial lung disease based on CT findings. She also has bronchiectasis which is likely related to her rheumatoid arthritis. 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 I discontinued her vancomycin as her MRSA screen is negative. Recommend obtaining a sputum culture. I have ordered for procalcitonin. We can decrease her steroids to 60 mg p.o. daily. Continue her Zosyn for now pending cultures. She does have underlying structural lung disease and is at risk for Pseudomonas. She will need an outpatient work-up including pulmonary function test and possible serological testing if this has not been done previously. She is at risk for opportunistic infections given her immunosuppression and leukopenia. I will order for an LDH as this can be used as a nonspecific marker for possible fungal disease such as pneumocystis. She needs aggressive pulmonary toilet. We can start her on vest therapy 3 times a day. Flutter valve 4 times a day. Titrate her oxygen to maintain sats around 88 to 92% on room air. No need for further blood gas needed. We will continue to follow along with you. Again, please obtain records from her outside provider. (2) Pneumonia: (3) COPD exacerbation: (4) Fibrotic lung diseases: (5) Bronchiectasis: History of Present Illness Attending Physician: Cal Mi MD History of Present Illness 78-year-old female with a past medical history of presumptive COPD, fibrotic lung disease, rheumatoid arthritis on immunosuppression who presented to the hospital with worsening shortness of breath, cough and chest tightness. Patient reports over last 2 to 3 days she has had worsening cough that is productive at times. She has baseline difficulty with mobility related to her rheumatoid arthritis. She lives with her daughter. Unfortunately, her daughter is not available to discuss in the room today. Patient is somewhat of a poor historian. She says that she is on prednisone, methotrexate and mycophenolate for immunosuppressive therapy. She says she does not see a paint mixer. She apparently sees a Dr. Cortés in [place]. She was not aware that she has any history of interstitial lung disease. She does recall being told she has COPD. She is a very heavy smoker. She has smoked from age of 18. She smokes upwards of 1 to 1/2 packs/day. We have very limited records of her in our system. I am not able to find any records and ulcers. She is currently on 5 L of oxygen. She says she does not wear any oxygen at home. She was started on vancomycin and Zosyn. She is on IV Solu-Medrol. She is leukopenic on her CBC. She has been afebrile. Allergies Allergy/AdvReac Type Severity Reaction Status Date / Time albuterol AdvReac Intermediate JITTERY Verified 04/23/14 12:15 FROM ALBUTEROL [facility] Home Medications Home Medications Medication Instructions Recorded Confirmed Type albuterol sulfate 2 puff INHALATION Q6H PRN 07/22/19 07/22/19 History amitriptyline 50 mg PO HS 07/22/19 07/22/19 History atorvastatin 20 mg PO DAILY 07/22/19 07/22/19 History escitalopram oxalate 20 mg PO QAM 07/22/19 07/22/19 History folic acid 1 mg PO [id number] 07/22/19 07/22/19 History gabapentin 300 mg PO TID 07/22/19 07/22/19 History methotrexate sodium 15 mg PO WK 07/22/19 07/22/19 History pantoprazole 20 mg PO DAILY 07/22/19 07/22/19 History tramadol 50 mg PO Q8H PRN 07/22/19 07/22/19 History Patient History Medical History Fibrotic lung diseases (Acute) HTN (hypertension) (Acute) Hyperlipemia (Acute) Myocardial infarct (Acute) CVA (cerebral infarction) (Acute) Pneumonia (Acute) Respiratory distress (Acute 04/22/14) History of COPD Surgical History H/O cardiac catheterization (Acute) Family History Other Family history non-contributory Social History Preferred Language: Yakut Communication Ability: Effective Mosaic Layer Required: No Beliefs That Will Affect Care: None marital status: Current Living Situation: Family current occupational status: retired Other Information That Helps Us Care for You: No Feels Safe at Home: Yes Safety Concerns: Feels Safe At This Time Smoking Status: Unknown if ever smoked Hx Alcohol Use: No Hx Substance Use: No Review of Systems Review of Systems: All systems reviewed & are unremarkable except as noted in HPI & below Physical Exam Constitutional: Patient appears elderly and frail. She is sitting in her chair with a nasal cannula on Eyes: PERRL, conjunctivae normal, anicteric sclerae ENMT: external ear and nose normal, oropharynx normal Neck: normal visual inspection Respiratory: normal respiratory effort Diffuse rhonchi and wheezes. Cardiovascular: RRR, no murmur, no edema Gastrointestinal (Abdomen): normal bowel sounds, soft, nontender, no hepatosplenomegaly Musculoskeletal: Mild joint deformities noted in her fingers Skin: no rashes, warm and dry Neurologic: PERRL, EOMI, accommodation nl, no face palsy, no dysarthria Psychiatric: A+Ox3, euthymic affect Results & Data Vital Signs (Past 12 Hours) Vital Signs Temp Pulse Pulse Resp BP Pulse Ox Pulse Ox 07/23/19 15:54 97.9 F 92 H 16 113/62 93 07/23/19 15:15 95 H 22 96 07/23/19 13:34 96 07/23/19 13:20 90 07/23/19 11:44 98.4 F 95 H 28 H 126/81 95 07/23/19 11:18 100 H 22 95 07/23/19 08:00 98.1 F 96 H 28 H 126/75 93 Pulse Ox Pulse Ox 07/23/19 15:54 07/23/19 15:15 07/23/19 13:34 07/23/19 13:20 90 76 L 07/23/19 11:44 07/23/19 11:18 07/23/19 08:00 I personally reviewed the patient's CBC, chest x-ray, CT scan and renal fun ction. PG Care Time/CCT Total # of Minutes Spent Total Time Spent with Patient: Total time spent is greater than 50% in coordination of care (as documented) at patient's floor/unit and/or counseling patient: (1) Pneumonia Laterality: unspecified laterality Lung location: unspecified part of lung Pneumonia type: due to unspecified organism Qualified Code(s): J18.9 - Pneumonia, unspecified organism
[2019-07-23] MEDS ORDERED: ALBUT/IPRATROP 3MG/0.5MG NEB 3 ML VIAL NEB PRN (17:23)
[2019-07-23] MEDS ORDERED: methylPREDNISolone 60 MG in SYRINGE 0 ML IV SCH (18:00)
[2019-07-23 18:15] LABS: BUN Creatinine Ratio 26.3 (10-20); Calcium 8.4 mg/dl (8.5-10.1); Creatinine Clr Calc Pharmacy 41.7 ml/min; Est GFR (African American) 69.2; Est GFR (Non-African American) 59.7; Potassium 3.7 mmol/L (3.5-5.1)
[2019-07-23] MEDS: ALBUT/IPRATROP 3MG/0.5MG NEB 3 ML VIAL NEB SCH ×2 (19:15→23:13)
[2019-07-23] MEDS: AMITRIPTYLINE HCL 50 MG TAB PO SCH (20:32)
[2019-07-24] MEDS: PIPERACILLIN/TAZOBACTAM 3.375 GM in DEXTROSE 5% 100 ML IV SCH ×3 (00:06→16:57)
[2019-07-24] MEDS: ALBUT/IPRATROP 3MG/0.5MG NEB 3 ML VIAL NEB SCH ×6 (03:13→22:58)
[2019-07-24 07:05] LABS: Hematocrit (blood only) 31.2 % (37-47); Hemoglobin 10.3 g/dL (12.0-16.0); Mean Corpuscular Hemoglobin 29.9 pg (25-34); Mean Corpuscular Volume 90.4 fL (80-100); Mean Platelet Volume 9.6 fL (7.4-10.4); Platelet Count 139 K/uL (130-400); RDW Coefficient of Variation 16.9 % (11.5-14.5); RDW Standard Deviation 55.8 fL (36.4-46.3); Red Blood Count 3.45 M/uL (4.2-5.4); White Blood Count 2.71 K/uL (4.8-10.8)
[2019-07-24 07:26] LABS: Creatinine Clr Calc Pharmacy 46.6 ml/min; Est GFR (African American) 79.4; Est GFR (Non-African American) 68.5
[2019-07-24 07:41] LABS: Basophils # (auto) 0.01 K/uL (0-0.2); Basophils % (auto) 0.4 %; Dohle Bodies 2+; Immature Granulocytes # (auto) 0.05 K/uL (0.00-0.02); Immature Granulocytes % (auto) 1.8 %; Lymphocytes # (auto) 0.45 K/uL (1.2-3.4); Lymphocytes % (auto) 16.6 %; Monocytes # (auto) 0.06 K/uL (0.11-0.59); Monocytes % (auto) 2.2 %; Neutrophils # (auto) 2.14 K/uL (1.4-6.5); Toxic Granulation 2+
[2019-07-24] MEDS: ESCITALOPRAM OXALATE 20 MG TAB PO SCH (08:14)
[2019-07-24] MEDS: GABAPENTIN 300 MG CAP PO SCH ×3 (08:14→20:22)
[2019-07-24] MEDS: PANTOprazole 40 MG TAB PO SCH (08:14)
[2019-07-24] MEDS: ATORVASTATIN 20 MG TAB PO SCH (08:15)
[2019-07-24] MEDS: ASPIRIN 81 MG ECTAB PO SCH (08:15)
[2019-07-24] MEDS: ENOXAPARIN INJ 30 MG/0.3 ML SYR SQ SCH (08:16)
[2019-07-24] MEDS: predniSONE 20 MG TAB PO SCH (08:16)
[2019-07-24] MEDS: TRAMADOL HCL 50 MG TABLET PO PRN (08:24)
[2019-07-24] MEDS ORDERED: methylPREDNISolone 40 MG in SYRINGE 0 ML IV SCH (09:00)
--- NOTE | 2019-07-24 09:31 | Hospitalist Progress Note ---
Date of Service July 24, 2019 Assessment & Plan (1) Acute hypoxemic respiratory failure: Secondary to RA-ILD, Bronchiectasis exacerbation secondary to bilateral pneumonia CT chest noted still at 5 L via NC cultures pending continue Zosyn, Nebs, Prednisone- additional IV Solumedrol ordered for this AM continue chest vest therapy, flutter valce Pulmonary consulted Severe sepsis SIRS plus lactic acid elevation plus hypoxemic respiratory failure secondary to above Lactic acidosis resolved Monitor closely Leukopenia improving peripheral smear:PERIPHERAL SMEAR FOR REVIEW: 1. NORMOCHROMIC/NORMOCYTIC RED BLOOD CELLS, RARE ECHINOCYTES, PMN LEUKOCYTES WITH DOHLE BODIES AND TOXIC GRANULATIONS, UNREMARKABLE LYMPHOCYTES, UNREMARKABLE MONOCYTES, AND UNREMARKABLE PLATELETS ARE ALL SEEN. 2. BLASTS AND SCHISTOCYTES ARE NOT SEEN. 3. THE TRIAD OF CYTOLOGIC FEATURES REQUIRED FOR A DIAGNOSIS OF SEPSIS IS NOT SEEN. 4. ALTHOUGH A FEW HYPOLOBULATED PMN LEUKOCYTES ARE SEEN, THE OTHER SIGNS OF DYSPLASIA ARE NOT SEEN. 5. PLEASE SEE MICROSCOPIC DESCRIPTION. hx CAD, CVA as per records --Continue usual medications hypertension -- Stable so far Hypokalemia -- Resolved chronic pain as per records -- Continue PRN analgesics mood disorder, at baseline past tobacco abuse PCU DVT prophylaxis. Lovenox subcu Full code Disposition pending lives with daughter will need PT/OT eval to determine requirement for Rehab or SNF Subjective ff up for BL PNA seen resting in bed,not in distress but does report mild dyspnea this AM still has cough productive of yellow sputum denies chest pain denies other symptoms Review of Systems Review of Systems: All systems reviewed & are unremarkable except as noted in HPI & below Physical Exam Physical Exam: General- oriented x 3, not in distress, speaks in sentences with no effort or accessory muscle use Eyes- anicteric Neck- no JVD Lungs-(+) diffuse crackles and mild scattered wheeze bilaterally Heart- normal rate, regular rhythm; no murmurs Abdomen- normal bowel sounds, nondistended, soft, nontender Extremities- no pretibial edema, no calf tenderness Neuro- alert, oriented x 3; no gross focal neurologic deficits Skin- warm & dry Results & Data Vital Signs (Past 12 Hours) Vital Signs Temp Pulse Pulse Resp BP BP Pulse Ox 07/24/19 08:00 81 07/24/19 07:48 36.6 C 95 H 23 144/66 H 93 07/24/19 07:08 77 16 94 10/11/19 04:00 36.8 C 95 H 22 110/67 90 07/24/19 03:46 85 20 96 07/24/19 00:00 91 H 07/23/19 23:59 36.5 C 91 H 20 100/54 L 92 07/23/19 23:16 87 28 H 100 07/23/19 23:15 87 28 H 100 Laboratory Results Laboratory Results - last 24 hr 07/23/19 07/23/19 07/24/19 17:47 17:47 06:30 WBC RBC Hgb Hct MCV MCH MCHC RDW Std Deviation RDW Coeff of Jose Manuel Plt Count MPV Immature Gran % (Auto) Neut % (Auto) Lymph % (Auto) Lane % (Auto) Eos % (Auto) Baso % (Auto) Immature Gran # (Auto) Neut # (Auto) Lymph # (Auto) Lane # (Auto) Eos # (Auto) Baso # (Auto) Toxic Granulation Dohle Bodies Peripher Smr Path Cons Sodium 139 Potassium 3.7 Chloride 111 H Carbon Dioxide 22 Anion Gap 6.0 BUN 24 H Creatinine 0.93 0.83 Est Cr Clr Drug Dosing 41.7 46.6 Est GFR ( Amer) 69.2 79.4 Est GFR (Non-Af Amer) 59.7 68.5 BUN/Creatinine Ratio 26.3 H Glucose 186 H Calcium 8.4 L Lactate Dehydrogenase 276 H 07/24/19 06:30 WBC 2.71 L RBC 3.45 L Hgb 10.3 L Hct 31.2 L MCV 90.4 MCH 29.9 MCHC 33.0 RDW Std Deviation 55.8 H RDW Coeff of Jose Manuel 16.9 H Plt Count 139 MPV 9.6 Immature Gran % (Auto) 1.8 Neut % (Auto) 79.0 Lymph % (Auto) 16.6 Lane % (Auto) 2.2 Eos % (Auto) 0.0 Baso % (Auto) 0.4 Immature Gran # (Auto) 0.05 H Neut # (Auto) 2.14 Lymph # (Auto) 0.[address] # (Auto) 0.06 L Eos # (Auto) 0.00 Baso # (Auto) 0.01 Toxic Granulation 2+ Dohle Bodies 2+ Peripher Smr Path Cons Sodium Potassium Chloride Carbon Dioxide Anion Gap BUN Creatinine Est Cr Clr Drug Dosing Est GFR ( Amer) Est GFR (Non-Af Amer) BUN/Creatinine Ratio Glucose Calcium Lactate Dehydrogenase
[2019-07-24] MEDS ORDERED: methylPREDNISolone 40 MG in SYRINGE 0 ML IV ONE (10:00)
--- NOTE | 2019-07-24 11:30 | Pulmonology Progress Note ---
Date of Service July 24, 2019 Assessment & Plan (1) Acute hypoxemic respiratory failure: Patient does appear to have chronic interstitial lung disease based on CT findings. She also has bronchiectasis which is likely related to her rheumatoid arthritis. 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 I discontinued her vancomycin as her MRSA screen is negative. Sputum culture obtained. Procalcitonin is 4.26. Will order for a follow up tomorrow to make sure there is improvement. We can decrease her steroids to 60 mg p.o. daily. Continue her Zosyn for now pending cultures. She does have underlying structural lung disease and is at risk for Pseudomonas. She will need an outpatient work-up including pulmonary function test and possible serological testing if this has not been done previously. She is at risk for opportunistic infections given her immunosuppression and leukopenia. Her LDH is mildly positive, but in light of her elevated procal, radiographic findings and symptoms, I think she likely has a bacterial pna at p resent. Continue vest therapy 3 times a day. Flutter valve 4 times a day. Hypertonic saline twice daily. Duo-neb q4h prn. Titrate her oxygen to maintain sats around 88 to 92% on room air. No need for further blood gas needed. We will continue to follow along with you. Again, please obtain records from her outside provider. (2) Pneumonia: Laterality: unspecified laterality Lung location: unspecified part of lung Pneumonia type: due to unspecified organism Qualified Code(s): J18.9 - Pneumonia, unspecified organism (3) COPD exacerbation: (4) Fibrotic lung diseases: (5) Bronchiectasis: Subjective Patient continues to wheeze substantially this morning. Coughing more sputum. Complains of pain in her chest and back. Sleep was poor. No fevers. Physical Exam Eyes: PERRL, conjunctivae normal, anicteric sclerae ENMT: external ear and nose normal, oropharynx normal Neck: normal visual inspection Respiratory: normal respiratory effort Diffuse wheezes. Cardiovascular: RRR, no murmur, no edema Gastrointestinal (Abdomen): normal bowel sounds, soft, nontender, no hepatosplenomegaly Skin: no rashes, warm and dry Neurologic: PERRL, EOMI, accommodation nl, no face palsy, no dysarthria Psychiatric: A+Ox3, euthymic affect Results & Data Vital Signs (Past 12 Hours) Vital Signs Temp Pulse Pulse Resp BP BP Pulse Ox 07/24/19 11:10 86 18 93 07/24/19 08:00 81 07/24/19 07:48 97.9 F 95 H 23 144/66 H 93 07/24/19 07:08 77 16 94 07/24/19 04:00 98.2 F 95 H 22 110/67 90 07/24/19 03:46 85 20 96 07/24/19 00:00 91 H 07/23/19 23:59 97.7 F 91 H 20 100/54 L 92 PG Care Time/CCT Total # of Minutes Spent Total Time Spent with Patient: Total time spent is greater than 50% in coordination of care (as documented) at patient's floor/unit and/or counseling patient:
[2019-07-24] MEDS: SODIUM CHLOR 7% 4 ML NEB INH SCH (19:17)
[2019-07-24] MEDS: AMITRIPTYLINE HCL 50 MG TAB PO SCH (20:22)
[2019-07-25] MEDS: PIPERACILLIN/TAZOBACTAM 3.375 GM in DEXTROSE 5% 100 ML IV SCH ×4 (00:07→23:33)
[2019-07-25] MEDS: ALBUT/IPRATROP 3MG/0.5MG NEB 3 ML VIAL NEB SCH ×6 (03:04→22:57)
[2019-07-25 07:11] LABS: Hematocrit (blood only) 32.9 % (37-47); Hemoglobin 10.3 g/dL (12.0-16.0); Mean Corpuscular Hgb Conc 31.3 g/dL (32-36); Mean Corpuscular Volume 92.7 fL (80-100); Mean Platelet Volume 9.3 fL (7.4-10.4); Platelet Count 122 K/uL (130-400); RDW Coefficient of Variation 17.2 % (11.5-14.5); RDW Standard Deviation 58.1 fL (36.4-46.3); Red Blood Count 3.55 M/uL (4.2-5.4)
[2019-07-25] MEDS: SODIUM CHLOR 7% 4 ML NEB INH SCH ×2 (07:25→19:21)
[2019-07-25 07:42] LABS: Basophils # (auto) 0.01 K/uL (0-0.2); Basophils % (auto) 0.3 %; Dohle Bodies 1+; Immature Granulocytes # (auto) 0.11 K/uL (0.00-0.02); Immature Granulocytes % (auto) 3.5 %; Lymphocytes # (auto) 0.76 K/uL (1.2-3.4); Lymphocytes % (auto) 24.5 %; Monocytes # (auto) 0.06 K/uL (0.11-0.59); Monocytes % (auto) 1.9 %; Neutrophils # (auto) 2.16 K/uL (1.4-6.5); Neutrophils % (auto) 69.8 %
[2019-07-25 07:56] LABS: Creatinine Clr Calc Pharmacy 49.3 ml/min; Est GFR (African American) 84.3; Est GFR (Non-African American) 72.7
[2019-07-25] MEDS: ASPIRIN 81 MG ECTAB PO SCH (08:19)
[2019-07-25] MEDS: PANTOprazole 40 MG TAB PO SCH (08:19)
[2019-07-25] MEDS: GABAPENTIN 300 MG CAP PO SCH ×3 (08:19→21:09)
[2019-07-25] MEDS: ATORVASTATIN 20 MG TAB PO SCH (08:19)
[2019-07-25] MEDS: ESCITALOPRAM OXALATE 20 MG TAB PO SCH (08:19)
[2019-07-25] MEDS: predniSONE 20 MG TAB PO SCH (08:20)
[2019-07-25] MEDS: ENOXAPARIN INJ 30 MG/0.3 ML SYR SQ SCH (08:20)
[2019-07-25] MEDS: FOLIC ACID 1 MG TAB PO SCH (08:20)
--- NOTE | 2019-07-25 13:38 | Pulmonology Progress Note ---
Date of Service July 25, 2019 Assessment & Plan (1) Acute hypoxemic respiratory failure: Patient does appear to have chronic interstitial lung disease based on CT findings. She also has bronchiectasis which is likely related to her rheumatoid arthritis. 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 I discontinued her vancomycin as her MRSA screen is negative. Sputum culture obtained. Procalcitonin improving. Continue prednisone 40 mg for 10 days. Continue Zosyn for now pending cultures. She does have underlying structural lung disease and is at risk for Pseudomonas. She will need an outpatient work-up including pulmonary function test and possible serological testing if this has not been done previously. She is at risk for opportunistic infections given her immunosuppression and leukopenia. Her LDH is mildly positive, but in light of her elevated procal, radiographic findings and symptoms, I think she likely has a bacterial pna at present. Continue vest therapy 3 times a day. Flutter valve 4 times a day. Hypertonic saline twice daily. Duo-neb q4h prn. Titrate her oxygen to maintain sats around 88 to 92% on room air. No need for further blood gas needed. We will continue to follow along with you. Again, please obtain records from her outside provider. (2) Pneumonia: Laterality: unspecified laterality Lung location: unspecified part of lung Pneumonia type: due to unspecified organism Qualified Code(s): J18.9 - Pneumonia, unspecified organism (3) COPD exacerbation: (4) Fibrotic lung diseases: (5) Bronchiectasis: Subjective Patient continues to wheeze today. Complaining of coughing and some mild pain allover. No nausea or vomiting. No fever. Physical Exam Eyes: PERRL, conjunctivae normal, anicteric sclerae ENMT: external ear and nose normal, oropharynx normal Neck: normal visual inspection Respiratory: normal respiratory effort Cardiovascular: RRR, no murmur, no edema Gastrointestinal (Abdomen): normal bowel sounds, soft, nontender, no hepatosplenomegaly Skin: no rashes, warm and dry Neurologic: PERRL, EOMI, accommodation nl, no face palsy, no dysarthria Psychiatric: A+Ox3, euthymic affect Results & Data Vital Signs (Past 12 Hours) Vital Signs Temp Pulse Pulse Resp BP BP Pulse Ox 07/25/19 11:15 86 18 98 07/25/19 11:10 97.5 F L 94 H 18 127/60 95 07/25/19 08:00 73 07/25/19 07:43 97.5 F L 86 18 137/62 96 07/25/19 07:29 80 20 97 07/25/19 04:41 97.9 F 89 24 100/63 97 07/25/19 03:04 74 20 98 PG Care Time/CCT Total # of Minutes Spent Total Time Spent with Patient: Total time spent is greater than 50% in coordination of care (as documented) at patient's floor/unit and/or counseling patient:
--- NOTE | 2019-07-25 17:25 | Hospitalist Progress Note ---
Date of Service July 25, 2019 Assessment & Plan (1) Acute hypoxemic respiratory failure: Secondary to RA-ILD, Bronchiectasis exacerbation secondary to bilateral pneumonia CT chest noted Wean from 5 L to 3 L of nasal cannula Blood cultures negative so far Sputum culture Mirta albicans, yeast not Mirta albicans continue Zosyn, Nebs, Prednisone continue chest vest therapy, flutter valve Pulmonary consulted Severe sepsis SIRS plus lactic acid elevation plus hypoxemic respiratory failure secondary to above Lactic acidosis resolved Monitor closely Leukopenia improving peripheral smear:PERIPHERAL SMEAR FOR REVIEW: 1. NORMOCHROMIC/NORMOCYTIC RED BLOOD CELLS, RARE ECHINOCYTES, PMN LEUKOCYTES WITH DOHLE BODIES AND TOXIC GRANULATIONS, UNREMARKABLE LYMPHOCYTES, UNREMARKABLE MONOCYTES, AND UNREMARKABLE PLATELETS ARE ALL SEEN. 2. BLASTS AND SCHISTOCYTES ARE NOT SEEN. 3. THE TRIAD OF CYTOLOGIC FEATURES REQUIRED FOR A DIAGNOSIS OF SEPSIS IS NOT SEEN. 4. ALTHOUGH A FEW HYPOLOBULATED PMN LEUKOCYTES ARE SEEN, THE OTHER SIGNS OF DYSPLASIA ARE NOT SEEN. 5. PLEASE SEE MICROSCOPIC DESCRIPTION. hx CAD, CVA as per records --Continue usual medications hypertension -- Stable so far Hypokalemia -- Resolved chronic pain as per records -- Continue PRN analgesics mood disorder, at baseline past tobacco abuse PCU DVT prophylaxis. Lovenox subcu Full code Disposition pending lives with daughter will need PT/OT eval to determine requirement for Rehab or SNF Subjective ff up for pneumonia Seen resting in bed, comfortable, not in distress States breathing feels improved today Less cough, unable to expectorate sputum No chest pain Denies other symptoms Review of Systems Review of Systems: All systems reviewed & are unremarkable except as noted in HPI & below Physical Exam Physical Exam: General- oriented x 3, not in distress, speaks in sentences with no effort or accessory muscle use Eyes- anicteric Neck- no JVD Lungs-diffuse crackles, bilaterally, no wheezing heard Heart- normal rate, regular rhythm; no murmurs Abdomen- normal bowel sounds, nondistended, soft, nontender Extremities- no pretibial edema, no calf tenderness Neuro- alert, oriented x 3; no gross focal neurologic deficits Skin- warm & dry Results & Data Vital Signs (Past 12 Hours) Vital Signs Temp Pulse Pulse Resp BP BP Pulse Ox 07/25/19 16:00 80 07/25/19 15:32 68 18 92 07/25/19 15:20 36.7 C 86 18 123/71 98 07/25/19 11:15 86 18 98 07/25/19 11:10 36.4 C L 94 H 18 127/60 95 07/25/19 08:00 73 07/25/19 07:43 36.4 C L 86 18 137/62 96 07/25/19 07:29 80 20 97 Laboratory Results Laboratory Results - last 24 hr 07/25/19 07/25/19 07/25/19 06:57 06:57 06:57 WBC 3.10 L RBC 3.55 L Hgb 10.3 L Hct 32.9 L MCV 92.7 MCH 29.0 MCHC 31.3 L RDW Std Deviation 58.1 H RDW Coeff of Jose Manuel 17.2 H Plt Count 122 L MPV 9.3 Immature Gran % (Auto) 3.5 Neut % (Auto) 69.8 Lymph % (Auto) 24.5 Moore % (Auto) 1.9 Eos % (Auto) 0.0 Baso % (Auto) 0.3 Immature Gran # (Auto) 0.11 H Neut # (Auto) 2.16 Lymph # (Auto) 0.76 L Moore # (Auto) 0.06 L Eos # (Auto) 0.00 Baso # (Auto) 0.01 Dohle Bodies 1+ Creatinine 0.79 Est Cr Clr Drug Dosing 49.3 Est GFR ( Amer) 84.3 Est GFR (Non-Af Amer) 72.7 Procalcitonin 1.75 H
[2019-07-25] MEDS: AMITRIPTYLINE HCL 50 MG TAB PO SCH (21:09)
[2019-07-25] MEDS: TRAMADOL HCL 50 MG TABLET PO PRN (21:10)
[2019-07-26] MEDS: ALBUT/IPRATROP 3MG/0.5MG NEB 3 ML VIAL NEB SCH ×6 (02:58→23:12)
[2019-07-26 06:39] LABS: Basophils # (auto) 0.01 K/uL (0-0.2); Basophils % (auto) 0.5 %; Eosinophils # (auto) 0.01 K/uL (0-0.5); Eosinophils % (auto) 0.5 %; Hematocrit (blood only) 32.9 % (37-47); Hemoglobin 10.3 g/dL (12.0-16.0); Immature Granulocytes # (auto) 0.04 K/uL (0.00-0.02); Immature Granulocytes % (auto) 1.8 %; Lymphocytes # (auto) 0.96 K/uL (1.2-3.4); Mean Corpuscular Hemoglobin 29.4 pg (25-34); Mean Corpuscular Hgb Conc 31.3 g/dL (32-36); Monocytes # (auto) 0.04 K/uL (0.11-0.59); Monocytes % (auto) 1.8 %; Neutrophils # (auto) 1.12 K/uL (1.4-6.5); Neutrophils % (auto) 51.4 %; Platelet Count 111 K/uL (130-400); RDW Coefficient of Variation 17.6 % (11.5-14.5); RDW Standard Deviation 59.5 fL (36.4-46.3); White Blood Count 2.18 K/uL (4.8-10.8)
[2019-07-26 07:13] LABS: Toxic Vacuolation 1+
[2019-07-26] MEDS: SODIUM CHLOR 7% 4 ML NEB INH SCH ×2 (07:15→19:33)
[2019-07-26 07:18] LABS: Creatinine Clr Calc Pharmacy 54.6 ml/min; Est GFR (African American) 95.9; Est GFR (Non-African American) 82.7
[2019-07-26] MEDS: PIPERACILLIN/TAZOBACTAM 3.375 GM in DEXTROSE 5% 100 ML IV SCH (07:57)
[2019-07-26] MEDS: GABAPENTIN 300 MG CAP PO SCH ×3 (08:24→21:07)
[2019-07-26] MEDS: FOLIC ACID 1 MG TAB PO SCH (08:24)
[2019-07-26] MEDS: ATORVASTATIN 20 MG TAB PO SCH (08:24)
[2019-07-26] MEDS: ENOXAPARIN INJ 30 MG/0.3 ML SYR SQ SCH (08:25)
[2019-07-26] MEDS: ESCITALOPRAM OXALATE 20 MG TAB PO SCH (08:25)
[2019-07-26] MEDS: ASPIRIN 81 MG ECTAB PO SCH (08:25)
[2019-07-26] MEDS: PANTOprazole 40 MG TAB PO SCH (08:26)
[2019-07-26] MEDS ORDERED: predniSONE 20 MG TAB PO SCH (09:00)
--- NOTE | 2019-07-26 10:39 | Hospitalist Progress Note ---
Date of Service July 26, 2019 Assessment & Plan (1) Acute hypoxemic respiratory failure: Secondary to RA-ILD, Bronchiectasis exacerbation secondary to bilateral pneumonia CT chest noted Blood cultures negative so far Sputum culture Mirta albicans, yeast not Mirta albicans Positive increased dyspnea today Chest x-ray unchanged Transition back to Solu-Medrol 60 mg every 12 Transitioned from Zosyn to ceftriaxone with azithromycin Continue nebs, chest vest therapy, flutter valve Issue pulmonology recommendations Severe sepsis SIRS plus lactic acid elevation plus hypoxemic respiratory failure secondary to above Lactic acidosis resolved Monitor closely Leukopenia improving peripheral smear:PERIPHERAL SMEAR FOR REVIEW: 1. NORMOCHROMIC/NORMOCYTIC RED BLOOD CELLS, RARE ECHINOCYTES, PMN LEUKOCYTES WITH DOHLE BODIES AND TOXIC GRANULATIONS, UNREMARKABLE LYMPHOCYTES, UNREMARKABLE MONOCYTES, AND UNREMARKABLE PLATELETS ARE ALL SEEN. 2. BLASTS AND SCHISTOCYTES ARE NOT SEEN. 3. THE TRIAD OF CYTOLOGIC FEATURES REQUIRED FOR A DIAGNOSIS OF SEPSIS IS NOT SEEN. 4. ALTHOUGH A FEW HYPOLOBULATED PMN LEUKOCYTES ARE SEEN, THE OTHER SIGNS OF DYSPLASIA ARE NOT SEEN. 5. PLEASE SEE MICROSCOPIC DESCRIPTION. --CBC remains stable overall hx CAD, CVA as per records --Continue usual medications hypertension -- Stable so far Hypokalemia -- Resolved chronic pain as per records -- Continue PRN analgesics mood disorder, at baseline past tobacco abuse PCU DVT prophylaxis. Lovenox subcu Full code Disposition pending lives with daughter will need PT/OT eval to determine requirement for Rehab or SNF Subjective Follow-up for acute respiratory failure, pneumonia, COPD exacerbation Seen sitting up in bed, no distress but does report dyspnea, wheezing Still has cough, nonproductive No chest pain, palpitations, dizziness Denies any symptoms Review of Systems Review of Systems: All systems reviewed & are unremarkable except as noted in HPI & below Physical Exam Physical Exam: General- oriented x 3, not in distress, speaks in sentences with accessory muscle use Eyes- anicteric Neck- no JVD Lungs-diffuse crackles, faint wheezing bilaterally Heart- normal rate, regular rhythm; no murmurs Abdomen- normal bowel sounds, nondistended, soft, nontender Extremities- no pretibial edema, no calf tenderness Neuro- alert, oriented x 3; no gross focal neurologic deficits Skin- warm & dry Results & Data Vital Signs (Past 12 Hours) Vital Signs Temp Pulse Pulse Resp BP BP Pulse Ox 07/26/19 08:00 36.6 C 82 98 H 20 134/84 91 07/26/19 07:15 85 18 95 07/26/19 04:04 36.6 C 78 20 113/66 93 07/26/19 02:59 70 22 94 07/25/19 23:45 36.7 C 81 20 112/66 95 07/25/19 22:59 79 20 97 Laboratory Results Laboratory Results - last 24 hr 07/26/19 07/26/19 07/26/19 06:05 06:05 11:11 WBC 2.18 L RBC 3.50 L Hgb 10.3 L Hct 32.9 L MCV 94.0 MCH 29.4 MCHC 31.3 L RDW Std Deviation 59.5 H RDW Coeff of Jose Manuel 17.6 H Plt Count 111 L MPV 10.0 Immature Gran % (Auto) 1.8 Neut % (Auto) 51.4 Lymph % (Auto) 44.0 [place] % (Auto) 1.8 Eos % (Auto) 0.5 Baso % (Auto) 0.5 Immature Gran # (Auto) 0.04 H Neut # (Auto) 1.12 L Lymph # (Auto) 0.96 L [place] # (Auto) 0.04 L Eos # (Auto) 0.01 Baso # (Auto) 0.01 Toxic Vacuolation 1+ ABG pH 7.45 ABG pCO2 42 ABG pO2 60 L ABG HCO3 29 H ABG O2 Saturation 91.6 ABG Base Excess 4.2 H Adilson Test Pos Barometric Pressure 734.1 Oxygen Given 2 L Creatinine 0.71 Est Cr Clr Drug Dosing 54.6 Est GFR ( Amer) 95.9 Est GFR (Non-Af Amer) 82.7
--- NOTE | 2019-07-26 10:52 | XRay Report ---
XR chest 1V portable CLINICAL HISTORY: Shortness of breath. Abnormal chest x-ray COMPARISON STUDY: 07/23/2019 FINDINGS: The cardiac and mediastinal contours remain stable. There are coarse bilateral pulmonary op acities, consistent with chronic lung disease. A superimposed inflammatory process or superimposed ca rdiogenic edema would be difficult to exclude.[ IMPRESSION: Coarse bilateral pulmonary opacities remain unchanged from the preceding study Electronically signed by: Dayne Stallworth M.D. 07/26/2019 10:51 AM
[2019-07-26] MEDS ORDERED: methylPREDNISolone 40 MG in SYRINGE 0 ML IV ONE (11:00)
[2019-07-26 11:26] LABS: Base Excess ABG 4.2 mEq/L (-9-1.8); HCO3 ABG 29 mmol/L (19-24); Oxygen Saturation ABG 91.6 % (90-95); PCO2 ABG 42 mmHg (35-46); PO2 ABG 60 mm/Hg (80-95); pH ABG 7.45 (7.35-7.45)
[2019-07-26] MEDS: TRAMADOL HCL 50 MG TABLET PO PRN (11:26)
[2019-07-26 11:30] LABS: Allen Test Pos (Pos)
--- NOTE | 2019-07-26 12:45 | Pulmonology Progress Note ---
Date of Service July 26, 2019 Assessment & Plan (1) Acute hypoxemic respiratory failure: Switched PO prednisone to IV solumedrol 07/26 60 mg BID as she is very bronchospastic. D/C Zosyn 07/26 as no evidence of pseudomonas and no fever. Will start her on Rocephin/azithro 07/26. (Azithro may confer some anti-inflammatory benefit as well). She has had minimal improvement. She appears to have very severe lung disease at baseline and has a very poor reserve to recover from this acute illness. I suspect she will have a very protracted course of recovery. Repeat PCT tomorrow to make sure there is a continued trend downwards. If PCT continues to improve and she is still doing poorly from a clinical perspective, bronchoscopy with BAL may have to be pursued to rule out atypical infection such as PJP, aspergilus, nocardia, etc. She is growing karan in her sputum, but I think this is a colonizer/containment from oral sai. (2) Pneumonia: Laterality: unspecified laterality Lung location: unspecified part of lung Pneumonia type: due to unspecified organism Qualified Code(s): J18.9 - Pneumonia, unspecified organism (3) COPD exacerbation: (4) Fibrotic lung diseases: (5) Bronchiectasis: (6) Immunocompromised due to corticosteroids: Subjective Patient states shes very short of breath today. Wheezing and coughing more. Did not ambulate yesterday. Ambulated to urinate earlier today. No nausea or vomiting. No fevers. Physical Exam Eyes: PERRL, conjunctivae normal, anicteric sclerae ENMT: external ear and nose normal, oropharynx normal Neck: normal visual inspection Respiratory: normal respiratory effort, + respiratory distress and + tachypneic Auscultation: + rhonchi Wheezing Cardiovascular: RRR, no murmur, no edema Gastrointestinal (Abdomen): normal bowel sounds, soft, nontender, no hepatosplenomegaly Skin: no rashes, warm and dry Neurologic: PERRL, EOMI, accommodation nl, no face palsy, no dysarthria Psychiatric: A+Ox3, euthymic affect Results & Data Vital Signs (Past 12 Hours) Vital Signs Temp Pulse Pulse Resp BP BP Pulse Ox 07/26/19 10:40 96 H 16 93 07/26/19 08:00 97.9 F 82 98 H 20 134/84 91 07/26/19 07:15 85 18 95 07/26/19 04:04 97.9 F 78 20 113/66 93 07/26/19 02:59 70 22 94 PG Care Time/CCT Total # of Minutes Spent Total Time Spent with Patient: Total time spent is greater than 50% in coordination of care (as documented) at patient's floor/unit and/or counseling patient:
[2019-07-26] MEDS: AZITHROMYCIN 500 MG in DEXTROSE 5% 250 ML IV SCH (14:09)
[2019-07-26] MEDS: cefTRIAXone SODIUM 1,000 MG in DEXTROSE 5% 50 ML IV SCH (16:59)
[2019-07-26] MEDS: methylPREDNISolone 60 MG in SYRINGE 0 ML IV SCH (21:07)
[2019-07-26] MEDS: AMITRIPTYLINE HCL 50 MG TAB PO SCH (21:07)
[2019-07-27] MEDS: ALBUT/IPRATROP 3MG/0.5MG NEB 3 ML VIAL NEB SCH ×6 (02:54→23:11)
[2019-07-27 07:06] LABS: Hematocrit (blood only) 31.6 % (37-47); Hemoglobin 10.1 g/dL (12.0-16.0); Mean Corpuscular Hemoglobin 29.6 pg (25-34); Mean Corpuscular Volume 92.7 fL (80-100); RDW Coefficient of Variation 17.1 % (11.5-14.5); Red Blood Count 3.41 M/uL (4.2-5.4); White Blood Count 1.64 K/uL (4.8-10.8)
[2019-07-27] MEDS: SODIUM CHLOR 7% 4 ML NEB INH SCH ×2 (07:14→19:04)
[2019-07-27 07:33] LABS: Basophils # (auto) 0.02 K/uL (0-0.2); Basophils % (auto) 1.2 %; Hypogranular Neutrophils 3+; Immature Granulocytes # (auto) 0.04 K/uL (0.00-0.02); Immature Granulocytes % (auto) 2.4 %; Lymphocytes # (auto) 0.64 K/uL (1.2-3.4); Mean Platelet Volume 9.8 fL (7.4-10.4); Monocytes # (auto) 0.08 K/uL (0.11-0.59); Monocytes % (auto) 4.9 %; Neutrophils # (auto) 0.86 K/uL (1.4-6.5); Neutrophils % (auto) 52.5 %; Platelet Count 97 K/uL (130-400); Platelet Estimate Decreased (Normal)
[2019-07-27] MEDS: GABAPENTIN 300 MG CAP PO SCH ×3 (08:11→21:02)
[2019-07-27] MEDS: TRAMADOL HCL 50 MG TABLET PO PRN ×2 (08:14→19:34)
[2019-07-27] MEDS: methylPREDNISolone 60 MG in SYRINGE 0 ML IV SCH ×2 (08:15→21:06)
[2019-07-27] MEDS: PANTOprazole 40 MG TAB PO SCH (08:15)
[2019-07-27] MEDS: ATORVASTATIN 20 MG TAB PO SCH (08:16)
[2019-07-27] MEDS: FOLIC ACID 1 MG TAB PO SCH (08:16)
[2019-07-27] MEDS: ASPIRIN 81 MG ECTAB PO SCH (08:16)
[2019-07-27] MEDS: ENOXAPARIN INJ 30 MG/0.3 ML SYR SQ SCH (08:16)
[2019-07-27] MEDS: ESCITALOPRAM OXALATE 20 MG TAB PO SCH (08:16)
--- NOTE | 2019-07-27 13:57 | Neurology Consultation ---
Date of Consultation July 27, 2019 Assessment & Plan (1) Right hand weakness: 1. no focal weakness on exam - right hand may be slightly weaker which was ongoing problem 2. MRI brain - no acute findings 3. no antiplt therapy currently- would add aspirin if not otherwise contra indicated 4. currently on low dose statin 5. further recommendation after MRI brain 6.would EMG as outpatient for further evaluation Supervising Physician Co-Signing Physician Notes Patient was seen and examined. Agree with Rosita Mejia PA-c as noted below. A 78 year old woman with multiple comorbidities who noted intermittent right hand weakness while eating. Symptoms have resolved. Muscle strength is 5/5. Mild thenar muscle flattening. Sensation is intact to light touch. I did review her MRI brain and am happy to confirm there is no evidence of acute ischemic stroke. T2 coronal FLAIR shows moderate to severe leukoaraiosis consistent with chronic microvascular ischemic changes. I suspect her intermittent hand symptoms are likely secondary to a component of carpal tunnel syndrome. Discussed EMG as outpatient but patient declined. Otherwise no further neurology recommendations at this time. Please call me with any further questions or concerns. History of Present Illness Reason for Consultation: R hand weakness Requesting Physician: Cal Mi MD Attending Physician: Cal Mi MD History of Present Illness Danielle is a 78 year old female who has a PMH CAD, CVA, RA, ILD, HTN, HLD, chronic pain, mood disorder past tobacco abuse. She had C3-7 neck surgery in [place] and had a dehisant of the incision and was transferred to [facility] for further management. At that time she had R>L clumsiness, balance issues, and dropping objects. she was admitted for a worsening cough with production. She was being treated with antibiotic and breathing treatment. Today she states she was dropping her fork which happened several times. She states it just started happening. denies CP, worsening SOB, slurred speech, one sided weakness numbness tingling, N, V, vision changes. Allergies Allergy/AdvReac Type Severity Reaction Status Date / Time albuterol AdvReac Intermediate JITTERY Verified 04/23/14 12:15 FROM ALBUTEROL [facility] Home Medications Home Medications Medication Instructions Recorded Confirmed Type albuterol sulfate 2 puff INHALATION Q6H PRN 07/22/19 07/22/19 History amitriptyline 50 mg PO HS 07/22/19 07/22/19 History atorvastatin 20 mg PO DAILY 07/22/19 07/22/19 History escitalopram oxalate 20 mg PO QAM 07/22/19 07/22/19 History folic acid 1 mg PO [id number] 07/22/19 07/22/19 History gabapentin 300 mg PO TID 07/22/19 07/22/19 History methotrexate sodium 15 mg PO WK 07/22/19 07/22/19 History pantoprazole 20 mg PO DAILY 07/22/19 07/22/19 History tramadol 50 mg PO Q8H PRN 07/22/19 07/22/19 History Patient History Medical History Fibrotic lung diseases (Acute) HTN (hypertension) (Acute) Hyperlipemia (Acute) Myocardial infarct (Acute) CVA (cerebral infarction) (Acute) Pneumonia (Acute) Respiratory distress (Acute 04/22/14) History of COPD Surgical History H/O cardiac catheterization (Acute) Family History Other Family history non-contributory Social History Preferred Language: [place] Communication Ability: Effective Dispensary Clerk Required: No Beliefs That Will Affect Care: None marital status: Current Living Situation: Family current occupational status: retired Other Information That Helps Us Care for You: No Feels Safe at Home: Yes Safety Concerns: Feels Safe At This Time Smoking Status: Unknown if ever smoked Hx Alcohol Use: No Hx Substance Use: No Physical Exam Physical Exam: Physical Exam: Constitutional: appearance thin, pale, ill appearing, O2 1L/NC Ears, Nose, Mouth and Throat: mucous membranes moist, no injection and skin normal, eyes normal Cardiovascular: RRR Respiratory: course breath sounds Musculoskeletal: no peripheral edema and good distal pulses Skin: no stigmata of neurocutaneous disease noted and normal and intact Eyes: extraocular muscles intact (EOMI) and pupils equal, round and reactive to light (PERRL) NEUROLOGIC EXAMINATION: Mental status: Alert and interactive Oriented 2019, [facility], 2019, identifies pen, button Oriented to person Speech fluent with no evidence of aphasia Cranial Nerves smile eye brow raise symmetric Reflexes: Deep tendon reflexes were symmetrical and graded 2/5.down going toes Sensory: intact to light cool touch Coordination: finger to nose, rapid hand movement in tact Gait/Stance sitting up in bed Motor: Negative for pronator drift of out stretched arms with eyes closed. Strength: biceps triceps hand orchard sprayer 4+/5 bilaterally, intrinsics 4+/5 bilaterally, hip flex plantar flex ext 4+/5 bilaterally globally deconditioned Results & Data Vital Signs (Past 12 Hours) Vital Signs Temp Pulse Resp BP Pulse Ox 07/27/19 11:25 36.7 C 97 H 18 112/59 L 91 07/27/19 11:03 97 H 18 91 07/27/19 07:14 75 18 98 07/27/19 07:11 36.5 C 79 19 122/69 98 07/27/19 03:17 36.8 C 76 20 114/68 98 07/27/19 02:54 73 20 97 Laboratory Results Abnormal lab results 07/27/19 Range/Units 06:41 WBC 1.64 L (4.8-10.8) K/uL RBC 3.41 L (4.2-5.4) M/uL Hgb 10.1 L (12.0-16.0) g/dL Hct 31.6 L (37-47) % RDW Std Deviation 58.0 H (36.4-46.3) fL RDW Coeff of Jose Manuel 17.1 H (11.5-14.5) % Plt Count 97 L (130-400) K/uL Immature Gran # (Auto) 0.04 H (0.00-0.02) K/uL Neut # (Auto) 0.86 L* (1.4-6.5) K/uL Lymph # (Auto) 0.64 L (1.2-3.4) K/uL [place] # (Auto) 0.08 L (0.11-0.59) K/uL Platelet Estimate Decreased L (Normal) Diagnostic Findings MRI brain-No evidence of acute or subacute infarction No evidence of intracranial mass in this noncontrast study Extensive white matter disease, statistically on a small vessel ischemic basis
[2019-07-27] MEDS: AZITHROMYCIN 500 MG in DEXTROSE 5% 250 ML IV SCH (14:10)
--- NOTE | 2019-07-27 14:50 | Magnetic Resonance Report ---
MRI OF THE BRAIN WITHOUT CONTRAST CLINICAL HISTORY: Right hand weakness. Numbness. POSTERIOR HEADACHES COMPARISON STUDY: None. FINDINGS: Sagittal T1, axial diffusion, proton density and T2 weighted axial, coronal FLAIR, and axial T1-weigh silvino images were acquired. No intra or extra-axial mass lesions are visualized Axial diffusion-weighted images reveal no evidence of acute or subacute infarction. There is no evidence of ventricular dilatation. Proton density T2-weighted and FLAIR images reveal extensive foci of increased T2 signal within the w johnny matter, likely on a small vessel basis. There are no abnormal flow voids. There are foci of increased T2 signal within the right mastoid, likely inflammatory IMPRESSION: 1. No evidence of acute or subacute infarction 2. No evidence of intracranial mass in this noncontrast study 3. Extensive white matter disease, statistically on a small vessel ischemic basis Electronically signed by: Dayne Stallworth M.D. 07/27/2019 2:49 PM
--- NOTE | 2019-07-27 15:49 | Pulmonology Progress Note ---
Date of Service July 27, 2019 Assessment & Plan (1) Acute hypoxemic respiratory failure: Impression: 78-year-old female with rheumatoid arthritis with profound fibrotic lung disease and traction bronchiectasis with some mediastinal and hilar adenopathy. Recommendations: 1. Patient does appear to have chronic interstitial lung disease based on CT findings. She also has bronchiectasis which is likely related to her rheumatoid arthritis. We need to get records from her prior brusher and shearer and vp integrity if she has ever seen one. Her procalcitonin is back to normal which argues that antibiotics may be discontinued. She is not a candidate for a surgical lung biopsy at this point time and I am not sure that bronchoscopy with BAL would yield the etiology in a patient already immunosuppressed. The presence of the adenopathy is somewhat concerning, especially in the site of leukopenia and anemia. Could consider endobronchial ultrasound however I would favor continued clinical observation with consideration for an outpatient PET scan. Etiologies such as CLL remain on the Continue vest therapy 3 times a day. Flutter valve 4 times a day. Hypertonic saline twice daily. Duo-neb q4h prn. Titrate her oxygen to maintain sats around 88 to 92% on room air. Patient will need to go home on supplemental oxygen Okay to transition to oral steroids with plans to taper over the next 2 to 3 weeks. We will continue to follow along with you. Again, please obtain records from her outside provider. She will require outpatient pulmonary follow-up with PFTs. The patient may be approaching maximal benefit from inpatient hospitalization. Unclear if she can return back home and assessment of her social situation is appropriate. (2) Pneumonia: Laterality: unspecified laterality Lung location: unspecified part of lung Pneumonia type: due to unspecified organism Qualified Code(s): J18.9 - Pneumonia, unspecified organism (3) COPD exacerbation: (4) Fibrotic lung diseases: (5) Bronchiectasis: Subjective Patient states that her breathing is about the same. She is not coughing or expectorating significant phlegm currently. She feels her breathing is bad but again this is a somewhat chronic problem for her. She does not report significant fevers chills or night sweats. No hemoptysis. No skin rashes or lesions. Review of Systems Review of Systems: Unchanged from prior Physical Exam Eyes: PERRL, conjunctivae normal, anicteric sclerae ENMT: external ear and nose normal, oropharynx normal Neck: normal visual inspection Respiratory: normal respiratory effort Cardiovascular: RRR, no murmur, no edema Gastrointestinal (Abdomen): normal bowel sounds, soft, nontender, no hepatosplenomegaly Skin: no rashes, warm and dry Neurologic: PERRL, EOMI, accommodation nl, no face palsy, no dysarthria Psychiatric: A+Ox3, euthymic affect Results & Data Vital Signs (Past 12 Hours) Vital Signs Temp Pulse Resp BP Pulse Ox 07/27/19 15:16 96 H 18 94 07/27/19 11:25 36.7 C 97 H 18 112/59 L 91 07/27/19 11:03 97 H 18 91 07/27/19 07:14 75 18 98 07/27/19 07:11 36.5 C 79 19 122/69 98 Laboratory Results 07/27/19 06:41 07/26/19 06:05 Diagnostic Findings No new films PG Care Time/CCT Total # of Minutes Spent Total Time Spent with Patient: Total time spent is greater than 50% in coordi nation of care (as documented) at patient's floor/unit and/or counseling patient: 45 minutes reviewing case and managing
[2019-07-27] MEDS: cefTRIAXone SODIUM 1,000 MG in DEXTROSE 5% 50 ML IV SCH (17:11)
--- NOTE | 2019-07-27 20:10 | Hospitalist Progress Note ---
Date of Service July 27, 2019 Assessment & Plan (1) Acute hypoxemic respiratory failure: Secondary to RA-ILD, Bronchiectasis exacerbation secondary to bilateral pneumonia CT chest noted Blood cultures negative so far Sputum culture Mirta albicans, yeast not Mirta albicans (+) increase in dyspne over the weekend Chest x-ray unchanged Transitioned back to Solu-Medrol 60 mg every 12h Transitioned from Zosyn to ceftriaxone with azithromycin improved today Continue nebs, chest vest therapy, flutter valve Appreciate pulmonology recommendations Severe sepsis SIRS plus lactic acid elevation plus hypoxemic respiratory failure secondary to above Lactic acidosis resolved Monitor closely Leukopenia improving peripheral smear:PERIPHERAL SMEAR FOR REVIEW: 1. NORMOCHROMIC/NORMOCYTIC RED BLOOD CELLS, RARE ECHINOCYTES, PMN LEUKOCYTES WITH DOHLE BODIES AND TOXIC GRANULATIONS, UNREMARKABLE LYMPHOCYTES, UNREMARKABLE MONOCYTES, AND UNREMARKABLE PLATELETS ARE ALL SEEN. 2. BLASTS AND SCHISTOCYTES ARE NOT SEEN. 3. THE TRIAD OF CYTOLOGIC FEATURES REQUIRED FOR A DIAGNOSIS OF SEPSIS IS NOT SE EN. 4. ALTHOUGH A FEW HYPOLOBULATED PMN LEUKOCYTES ARE SEEN, THE OTHER SIGNS OF DYSPLASIA ARE NOT SEEN. 5. PLEASE SEE MICROSCOPIC DESCRIPTION. --ANC decreased again today monitor closely hold Lovenox if Plt continues to decline further Right Hand Weakness - Brain MRI: IMPRESSION: 1. No evidence of acute or subacute infarction 2. No evidence of intracranial mass in this noncontrast study 3. Extensive white matter disease, statistically on a small vessel ischemic basis - Neurology consulted felt to be from Carpal Tunnel syndrome on ASA hx CAD, CVA as per records --Continue usual medications hypertension -- Stable so far Hypokalemia -- Resolved chronic pain as per records -- Continue PRN analgesics mood disorder, at baseline past tobacco abuse PCU DVT prophylaxis. Lovenox subcu Full code Disposition pending lives with daughter will need PT/OT eval to determine requirement for Rehab or SNF Subjective ff up for pneumonia, copd exacerbation seen resting in bed, comfortable states breathing has improved compared to yesterday reports right hand weakness, and numbness starting yesterday denies other symptoms Review of Systems Review of Systems: All systems reviewed & are unremarkable except as noted in HPI & below Physical Exam Physical Exam: General- oriented x 3, not in distress, speaks in sentences with no effort or accessory muscle use Eyes- anicteric Neck- no JVD Lungs- crackles bilaterally no wheezing Heart- normal rate, regular rhythm; no murmurs Abdomen- normal bowel sounds, nondistended, soft, nontender Extremities- no pretibial edema, no calf tenderness Neuro- alert, oriented x 3; muscle strength right hand 4/5, other ext 5/5, sensation 50% right hand, other ext 100% no other gross focal deficits Skin- warm & dry Results & Data Vital Signs (Past 12 Hours) Vital Signs Temp Pulse Resp BP Pulse Ox 07/27/19 19:26 37.2 C 86 20 108/61 93 07/27/19 19:09 98 H 18 92 07/27/19 15:54 36.7 C 104 H 18 92 07/27/19 15:16 96 H 18 94 07/27/19 11:25 36.7 C 97 H 18 112/59 L 91 07/27/19 11:03 97 H 18 91 Laboratory Results Laboratory Results - last 24 hr 07/27/19 07/27/19 06:41 06:41 WBC 1.64 L RBC 3.41 L Hgb 10.1 L Hct 31.6 L MCV 92.7 MCH 29.6 MCHC 32.0 RDW Std Deviation 58.0 H RDW Coeff of Jose Manuel 17.1 H Plt Count 97 L MPV 9.8 Immature Gran % (Auto) 2.4 Neut % (Auto) 52.5 Lymph % (Auto) 39.0 [place] % (Auto) 4.9 Eos % (Auto) 0.0 Baso % (Auto) 1.2 Immature Gran # (Auto) 0.04 H Neut # (Auto) 0.86 L* Lymph # (Auto) 0.64 L [place] # (Auto) 0.08 L Eos # (Auto) 0.00 Baso # (Auto) 0.02 Hypogranular Neuts 3+ Platelet Estimate Decreased L Procalcitonin 0.32 Diagnostic Findings Laboratory Results - last 24 hr 07/27/19 07/27/19 06:41 06:41 WBC 1.64 L RBC 3.41 L Hgb 10.1 L Hct 31.6 L MCV 92.7 MCH 29.6 MCHC 32.0 RDW Std Deviation 58.0 H RDW Coeff of Jose Manuel 17.1 H Plt Count 97 L MPV 9.8 Immature Gran % (Auto) 2.4 Neut % (Auto) 52.5 Lymph % (Auto) 39.0 [place] % (Auto) 4.9 Eos % (Auto) 0.0 Baso % (Auto) 1.2 Immature Gran # (Auto) 0.04 H Neut # (Auto) 0.86 L* Lymph # (Auto) 0.64 L [place] # (Auto) 0.08 L Eos # (Auto) 0.00 Baso # (Auto) 0.02 Hypogranular Neuts 3+ Platelet Estimate Decreased L Procalcitonin 0.32
[2019-07-27] MEDS: ACETAMINOPHEN 325 MG TAB PO PRN (21:00)
[2019-07-27] MEDS: AMITRIPTYLINE HCL 50 MG TAB PO SCH (21:02)
[2019-07-28] MEDS: guaiFENesin SUGAR FREE 200 MG/10 ML UDC PO PRN ×2 (02:00→08:34)
[2019-07-28] MEDS: ALBUT/IPRATROP 3MG/0.5MG NEB 3 ML VIAL NEB SCH ×6 (02:48→23:45)
[2019-07-28] MEDS ORDERED: COUGH DROP (SUGAR FREE) LOZ 24 LOZ/1 BOX BUCCAL PRN (06:39)
[2019-07-28] MEDS ORDERED: COUGH DROP (SUGAR FREE) LOZ 24 LOZ/1 BOX BUCCAL ONE (06:41)
[2019-07-28] MEDS: SODIUM CHLOR 7% 4 ML NEB INH SCH ×2 (07:09→19:03)
[2019-07-28 07:12] LABS: Hematocrit (blood only) 33.4 % (37-47); Hemoglobin 10.4 g/dL (12.0-16.0); Mean Corpuscular Hemoglobin 29.1 pg (25-34); Mean Corpuscular Hgb Conc 31.1 g/dL (32-36); Mean Corpuscular Volume 93.6 fL (80-100); Mean Platelet Volume 10.5 fL (7.4-10.4); Platelet Count 171 K/uL (130-400); RDW Standard Deviation 58.2 fL (36.4-46.3); Red Blood Count 3.57 M/uL (4.2-5.4); White Blood Count 1.71 K/uL (4.8-10.8)
[2019-07-28 07:38] LABS: Basophils # (auto) 0.02 K/uL (0-0.2); Basophils % (auto) 1.2 %; Hypogranular Neutrophils 3+; Lymphocytes # (auto) 0.92 K/uL (1.2-3.4); Lymphocytes % (auto) 53.8 %; Monocytes % (auto) 5.8 %; Neutrophils # (auto) 0.67 K/uL (1.4-6.5); Neutrophils % (auto) 39.2 %
--- NOTE | 2019-07-28 08:18 | Pulmonology Progress Note ---
Date of Service July 28, 2019 Assessment & Plan (1) Acute hypoxemic respiratory failure: Impression: 78-year-old female with rheumatoid arthritis with profound fibrotic lung disease and traction bronchiectasis with some mediastinal and hilar adenopathy. This likely represents the acute recognition of a chronic problem given the degree of fibrosis identified on her CT scan Recommendations: 1. Patient does appear to have chronic interstitial lung disease based on CT findings. She also has bronchiectasis which is likely related to her rheumatoid arthritis. 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 Her procalcitonin is back to normal, day #3 Rocephin and azithromycin. Anticipate completion of a 7-day course. She is not a candidate for a surgical lung biopsy at this point time and I am not sure that bronchoscopy with BAL would yield the etiology in a patient already immunosuppressed. The presence of the adenopathy is somewhat concerning, especially in the site of leukopenia and anemia. Could consider endobronchial ultrasound however I would favor continued clinical observation with consideration for an outpatient PET scan. Etiologies such as CLL remain on the differential Continue vest therapy 3 times a day. Flutter valve 4 times a day. Hypertonic saline twice daily. Duo-neb q4h prn. Titrate her oxygen to maintain sats around 88 to 92% on room air. Patient will need to go home on supplemental oxygen Transition to oral steroids with plans to taper over the next 2 to 3 weeks. We will continue to follow along with you. Again, please obtain records from her outside provider. She will require outpatient pulmonary follow-up with PFTs. The patient may be approaching maximal benefit from inpatient hospitalization. Unclear if she can return back home and assessment of her social situation is appropriate. Little else to offer in this acute setting (2) Pneumonia: Laterality: unspecified laterality Lung location: unspecified part of lung Pneumonia type: due to unspecified organism Qualified Code(s): J18.9 - Pneumonia, unspecified organism (3) COPD exacerbation: (4) Fibrotic lung diseases: (5) Bronchiectasis: Subjective Patient seen and examined. EMR reviewed. She is sitting up eating breakfast. She states her breathing is about the same. She becomes winded with any significant physical activity. She is coughing but states the cough is dry and nonproductive. She has not noted much in the way of wheezing. She denies any new joint complaints or skin rashes. No palpitations chest pressure or significant lower extremity edema we have not yet received any records from her outpatient tile and mottle supervisor. Review of Systems Review of Systems: Unchanged from prior Physical Exam Eyes: PERRL, conjunctivae normal, anicteric sclerae ENMT: external ear and nose normal, oropharynx normal Neck: normal visual inspection Respiratory: normal respiratory effort Cardiovascular: RRR, no murmur, no edema Gastrointestinal (Abdomen): normal bowel sounds, soft, nontender, no hepat osplenomegaly Skin: no rashes, warm and dry Neurologic: PERRL, EOMI, accommodation nl, no face palsy, no dysarthria Psychiatric: A+Ox3, euthymic affect Results & Data Vital Signs (Past 12 Hours) Vital Signs Temp Pulse Pulse Pulse Resp BP BP 07/28/19 07:46 36.7 C 77 19 118/64 07/28/19 07:28 96 H 07/28/19 07:12 82 76 20 07/28/19 07:02 76 20 07/28/19 03:53 36.4 C L 81 20 118/56 L 07/28/19 02:50 90 20 07/28/19 00:00 84 07/27/19 23:30 36.6 C 87 18 134/67 07/27/19 23:13 84 20 Pulse Ox 07/28/19 07:46 94 07/28/19 07:28 07/28/19 07:12 94 07/28/19 07:02 94 07/28/19 03:53 95 07/28/19 02:50 93 07/28/19 00:00 07/27/19 23:30 97 07/27/19 23:13 97 Laboratory Results 07/28/19 06:28 07/26/19 06:05 Diagnostic Findings No new films PG Care Time/CCT Total # of Minutes Spent Total Time Spent with Patient: Total time spent is greater than 50% in coordination of care (as documented) at patient's floor/unit and/or counseling p atient:
[2019-07-28] MEDS: FOLIC ACID 1 MG TAB PO SCH (08:35)
[2019-07-28] MEDS: ENOXAPARIN INJ 30 MG/0.3 ML SYR SQ SCH (08:36)
[2019-07-28] MEDS: ESCITALOPRAM OXALATE 20 MG TAB PO SCH (08:36)
[2019-07-28] MEDS: ASPIRIN 81 MG ECTAB PO SCH (08:36)
[2019-07-28] MEDS: ATORVASTATIN 20 MG TAB PO SCH (08:36)
[2019-07-28] MEDS: PANTOprazole 40 MG TAB PO SCH (08:37)
[2019-07-28] MEDS: GABAPENTIN 300 MG CAP PO SCH ×3 (08:37→21:14)
[2019-07-28] MEDS: predniSONE 20 MG TAB PO SCH (09:26)
[2019-07-28] MEDS: AZITHROMYCIN 500 MG in DEXTROSE 5% 250 ML IV SCH (13:48)
[2019-07-28] MEDS: cefTRIAXone SODIUM 1,000 MG in DEXTROSE 5% 50 ML IV SCH (16:26)
--- NOTE | 2019-07-28 17:14 | Hospitalist Progress Note ---
Date of Service July 28, 2019 Assessment & Plan (1) Acute hypoxemic respiratory failure: Secondary to RA-ILD, Bronchiectasis exacerbation secondary to bilateral pneumonia - CT chest: IMPRESSION: 1. Significant interval progression of peribronchovascular consolidation involving both lungs with a basilar predominance though involvement extends to the apices. This is consistent with progression of fibrotic lung disease. 2. Patchy groundglass opacities more so in the upper lobes and greater on the right concerning for superimposed bronchopneumonia. 3. Allowing for limitations image quality, no pulmonary embolus. 4. Possible underlying pulmonary artery hypertension. 5. Esophageal dilatation could suggest underlying disease such as scleroderma among other etiologies. 6. Progressive lymphadenopathy likely related to the underlying inflammatory disease. - Blood cultures negative so far Sputum culture Mirta albicans, yeast not Imrta albicans (+) increase in dyspnea over the weekend Chest x-ray unchanged Transitioned back to Solu-Medrol 60 mg every 12h Transitioned from Zosyn to ceftriaxone with azithromycin improving gradually, now transitioned from Solumedrol to Prednisone taper also on Ceftri + Azithro day 3/7 Continue nebs, chest vest therapy, flutter valve continue to monitor closely Appreciate pulmonology recommendations: " not a candidate for a surgical lung biopsy at this point time and I am not sure that bronchoscopy with BAL would yield the etiology in a patient already immunosuppressed. The presence of the adenopathy is somewhat concerning, especially in the site of leukopenia and anemia. Could consider endobronchial ultrasound however I would favor continued clinical observation with consideration for an outpatient PET scan. Etiologies such as CLL remain on the differential" Severe sepsis SIRS plus lactic acid elevation plus hypoxemic respiratory failure secondary to above Lactic acidosis resolved Monitor closely Leukopenia peripheral smear:PERIPHERAL SMEAR FOR REVIEW: 1. NORMOCHROMIC/NORMOCYTIC RED BLOOD CELLS, RARE ECHINOCYTES, PMN LEUKOCYTES WITH DOHLE BODIES AND TOXIC GRANULATIONS, UNREMARKABLE LYMPHOCYTES, UNREMARKABLE MONOCYTES, AND UNREMARKABLE PLATELETS ARE ALL SEEN. 2. BLASTS AND SCHISTOCYTES ARE NOT SEEN. 3. THE TRIAD OF CYTOLOGIC FEATURES REQUIRED FOR A DIAGNOSIS OF SEPSIS IS NOT SEEN. 4. ALTHOUGH A FEW HYPOLOBULATED PMN LEUKOCYTES ARE SEEN, THE OTHER SIGNS OF DY SPLASIA ARE NOT SEEN. 5. PLEASE SEE MICROSCOPIC DESCRIPTION. --ANC decreased again today from 860 to 670 (admitted with ANC 200s) discussed with Dr. Kidd - occupational psychologist likely secondary to patient's methotrexate interacting with antibiotics recommend to continue to monitoring trend, add Folic acid daily, call him to update re: ANC trend Right Hand Weakness resolved - patient reported this on 07/27/19 - Brain MRI: IMPRESSION: 1. No evidence of acute or subacute infarction 2. No evidence of intracranial mass in this noncontrast study 3. Extensive white matter disease, statistically on a small vessel ischemic basis - Neurology consulted felt to be from Carpal Tunnel syndrome on ASA hx CAD, CVA as per records --Continue usual medications hypertension -- Stable so far Hypokalemia -- Resolved Chronic pain as per records -- likely from RA -- Continue PRN analgesics mood disorder, at baseline past tobacco abuse PCU DVT prophylaxis. Lovenox subcu Full code Disposition pending lives with daughter will need PT/OT eval to determine requirement for Rehab or SNF Subjective ff up for pneumonia seen resting in bed, comfortable on 2 L nasal cannula states she had increased coughing spells this morning improved this afternoon able to bring up yellow sputum denies fever/chills, chest pain, abdominal pain no other symptoms Review of Systems Review of Systems: All systems reviewed & are unremarkable except as noted in HPI & below Physical Exam Physical Exam: General- oriented x 3, not in distress, speaks in sentences with no effort or accessory muscle use Eyes- anicteric Neck- no JVD Lungs- (+) scattered coarse crackles bilaterally no wheezing Heart- normal rate, regular rhythm; no murmurs Abdomen- normal bowel sounds, nondistended, soft, nontender Extremities- no pretibial edema, no calf tenderness Neuro- alert, oriented x 3; no gross focal neurologic deficits Skin- warm & dry Results & Data Vital Signs (Past 12 Hours) Vital Signs Temp Pulse Pulse Pulse Resp BP Pulse Ox 07/28/19 16:00 78 07/28/19 15:47 36.8 C 87 19 143/75 H 91 07/28/19 15:13 78 20 93 07/28/19 11:29 81 18 94 07/28/19 11:03 36.6 C 84 19 129/70 92 07/28/19 07:46 36.7 C 77 19 118/64 94 07/28/19 07:28 96 H 07/28/19 07:12 82 76 20 94 07/28/19 07:02 76 20 94 Laboratory Results Laboratory Results - last 24 hr 07/28/19 07/28/19 07/28/19 06:28 08:51 08:51 WBC 1.71 L RBC 3.57 L Hgb 10.4 L Hct 33.4 L MCV 93.6 MCH 29.1 MCHC 31.1 L RDW Std Deviation 58.2 H RDW Coeff of Jose Manuel 17.0 H Plt Count 171 D MPV 10.5 H Immature Gran % (Auto) 0.0 Neut % (Auto) 39.2 Lymph % (Auto) 53.8 Crockett % (Auto) 5.8 Eos % (Auto) 0.0 Baso % (Auto) 1.2 Immature Gran # (Auto) 0.00 Neut # (Auto) 0.67 L* Lymph # (Auto) 0.92 L Crockett # (Auto) 0.10 L Eos # (Auto) 0.00 Baso # (Auto) 0.02 Hypogranular Neuts 3+ Rheumatoid Factor Pending Cycl Citrul Peptide IgG > 200.00 H JODI Screen Pending
[2019-07-28] MEDS: TRAMADOL HCL 50 MG TABLET PO PRN (19:47)
[2019-07-28] MEDS: AMITRIPTYLINE HCL 50 MG TAB PO SCH (21:16)
[2019-07-29] MEDS: ALBUT/IPRATROP 3MG/0.5MG NEB 3 ML VIAL NEB SCH ×6 (02:57→22:55)
[2019-07-29] MEDS: SODIUM CHLOR 7% 4 ML NEB INH SCH ×2 (07:26→18:56)
[2019-07-29] MEDS ORDERED: FOLIC ACID 1 MG TAB PO SCH (09:00)
[2019-07-29] MEDS: ASPIRIN 81 MG ECTAB PO SCH (09:58)
[2019-07-29] MEDS: PANTOprazole 40 MG TAB PO SCH (09:58)
[2019-07-29] MEDS: guaiFENesin SUGAR FREE 200 MG/10 ML UDC PO PRN (09:58)
[2019-07-29] MEDS: ENOXAPARIN INJ 30 MG/0.3 ML SYR SQ SCH (09:58)
[2019-07-29] MEDS: GABAPENTIN 300 MG CAP PO SCH ×3 (09:58→19:59)
[2019-07-29] MEDS: ATORVASTATIN 20 MG TAB PO SCH (09:58)
[2019-07-29] MEDS: ESCITALOPRAM OXALATE 20 MG TAB PO SCH (09:58)
[2019-07-29] MEDS: FOLIC ACID 1 MG TAB PO SCH (09:58)
[2019-07-29] MEDS: predniSONE 20 MG TAB PO SCH (09:59)
[2019-07-29] MEDS: TRAMADOL HCL 50 MG TABLET PO PRN ×2 (10:15→19:57)
--- NOTE | 2019-07-29 12:37 | Hospitalist Progress Note ---
Date of Service July 29, 2019 Assessment & Plan (1) Acute hypoxemic respiratory failure: Secondary to RA-ILD, Bronchiectasis exacerbation secondary to bilateral pneumonia - CT chest: IMPRESSION: 1. Significant interval progression of peribronchovascular consolidation involving both lungs with a basilar predominance though involvement extends to the apices. This is consistent with progression of fibrotic lung disease. 2. Patchy groundglass opacities more so in the upper lobes and greater on the right concerning for superimposed bronchopneumonia. 3. Allowing for limitations image quality, no pulmonary embolus. 4. Possible underlying pulmonary artery hypertension. 5. Esophageal dilatation could suggest underlying disease such as scleroderma among other etiologies. 6. Progressive lymphadenopathy likely related to the underlying inflammatory disease. - Blood cultures negative so far Sputum culture Mirta albicans, yeast not Mirta albicans (+) increase in dyspnea over the weekend Chest x-ray unchanged Transitioned back to Solu-Medrol 60 mg every 12h Transitioned from Zosyn to ceftriaxone with azithromycin improving gradually, now transitioned from Solumedrol to Prednisone taper also on Ceftri + Azithro day 4/ Continue nebs, chest vest therapy, flutter valve pulmonology consulted appreciate input Appreciate pulmonology recommendations: " not a candidate for a surgical lung biopsy at this point time and I am not sure that bronchoscopy with BAL would yield the etiology in a patient already immunosuppressed. The presence of the adenopathy is somewhat concerning, especially in the site of leukopenia and anemia. Could consider endobronchial ultrasound however I would favor continued clinical observation with consideration for an outpatient PET scan. Etiologies such as CLL remain on the differential" recommends out pt PET scan Severe sepsis resolved vitals stable SIRS plus lactic acid elevation plus hypoxemic respiratory failure secondary to above Lactic acidosis resolved Monitor closely Leukopenia peripheral smear:PERIPHERAL SMEAR FOR REVIEW: 1. NORMOCHROMIC/NORMOCYTIC RED BLOOD CELLS, RARE ECHINOCYTES, PMN LEUKOCYTES WITH DOHLE BODIES AND TOXIC GRANULATIONS, UNREMARKABLE LYMPHOCYTES, UNREMARKABLE MONOCYTES, AND UNREMARKABLE PLATELETS ARE ALL SEEN. 2. BLASTS AND SCHISTOCYTES ARE NOT SEEN. 3. THE TRIAD OF CYTOLOGIC FEATURES REQUIRED FOR A DIAGNOSIS OF SEPSIS IS NOT SEEN. 4. ALTHOUGH A FEW HYPOLOBULATED PMN LEUKOCYTES ARE SEEN, THE OTHER SIGNS OF DYSPLASIA ARE NOT SEEN. 5. PLEASE SEE MICROSCOPIC DESCRIPTION. --ANC decreased again today from 860 to 670 (admitted with ANC 200s) discussed with Dr. Kidd - studio operations engineer in charge likely secondary to patient's methotrexate interacting with antibiotics Right Hand Weakness resolved - patient reported this on 07/27/19 - Brain MRI: IMPRESSION: 1. No evidence of acute or subacute infarction 2. No evidence of intracranial mass in this noncontrast study 3. Extensive white matter disease, statistically on a small vessel ischemic basis - Neurology consulted felt to be from Carpal Tunnel syndrome on ASA hx CAD, CVA as per records --Continue usual medications hypertension -- Stable so far Hypokalemia -- Resolved Chronic pain as per records -- likely from RA -- Continue PRN analgesics mood disorder, at baseline past tobacco abuse PCU DVT prophylaxis. Lovenox subcu Full code Disposition pending lives with daughter will need PT/OT eval to determine requirement for Rehab or SNF Subjective continues to have dry non productive cough no fever or chill on 2 L 02 via Nasal Canula ( not on home 02 ) no fever or chills vitals stable Physical Exam Constitutional: no acute distress Eyes: PERRL, conjunctivae normal, anicteric sclerae ENMT: external ear and nose normal, oropharynx normal Neck: trachea midline, no thyromegaly Respiratory: no respiratory distress Auscultation: + crackles and + wheezes Cardiovascular: RRR, no murmur, no edema Gastrointestinal (Abdomen): normal bowel sounds, soft, nontender, no hepatosplenomegaly Musculoskeletal: no cyanosis or clubbing, extremities motor strength 5/5 Skin: no rashes, warm and dry Neurologic: PERRL, EOMI, accommodation nl, no face palsy, no dysarthria Psychiatric: A+Ox3, euthymic affect Results & Data Vital Signs (Past 12 Hours) Vital Signs Temp Pulse Pulse Resp BP Pulse Ox 07/29/19 11:30 36.9 C 85 20 111/70 97 07/29/19 11:14 85 18 97 07/29/19 07:26 68 74 18 97 07/29/19 07:04 36.8 C 78 19 119/72 94 07/29/19 03:41 36.8 C 79 20 115/56 L 96 07/29/19 02:57 83 20 95
[2019-07-29] MEDS: AZITHROMYCIN 250 MG TAB PO SCH (13:20)
[2019-07-29] MEDS: cefTRIAXone SODIUM 1,000 MG in DEXTROSE 5% 50 ML IV SCH (15:47)
--- NOTE | 2019-07-29 16:17 | Pulmonology Progress Note ---
Date of Service July 29, 2019 Assessment & Plan (1) Acute hypoxemic respiratory failure: Most likely multifactorial Patient is an every day smoker of 1 pack/day Quit smoking for 16 years but resumed smoking when she moved back to [place] Daughter is her primary caregiver and is also a smoker Discussed need for abstinence. Patient also has fibrotic lung disease Unclear on degree of rheumatoid that is contributing to her hypoxemia Patient denies supplemental O2 use at home Will most likely require discharge with supplemental O2 and further outpatient work-up Maintain SaO2 of 88 to 92% due to COPD Continue to look for records from [facility] If needed, we will be glad to follow the patient has an outpatient on discharge (2) Abnormal CT scan, chest: Malignancy and CLL cannot be ruled out Significant amount of traction bronchiectasis and fibrotic lung change Consider outpatient PET scan Long smoking history and currently 1 pack/day smoker Follow-up outpatient studies We will also need outpatient pulmonary follow-up Continue to try to obtain outside records (3) Rheumatoid arthritis: Patient apparently has rheumatoid coverage with [facility] * Request records for review Home medications include methotrexate 50 mg p.o. weekly Will continue to look for records to assimilate correlation between respiratory failure, bronchiectasis, and her rheumatoid arthritis (4) Pneumonia: Procalcitonin was elevated on admission at 4.26 and has now normalized to 0.32 Patient receiving azithromycin and ceftriaxone (day #4/7) Continue to titrate O2 No sputum production Continue with aggressive pulmonary toilet Laterality: unspecified laterality Lung location: unspecified part of lung Pneumonia type: due to unspecified organism Qualified Code(s): J18.9 - Pneumonia, unspecified organism (5) Bronchiectasis: Be directly correlated to rheumatoid arthritis Awaiting records from [facility] [place] No indication for bronchoscopy at this time Continue with bronchodilators and aggressive pulmonary toilet Continue supplemental O2 as required (6) COPD exacerbation: Azithromycin and ceftriaxone to treat for pneumonia Continue steroids with a 2 to 3-week taper Titrate SaO2 between 88 and 92% Continue pulmonary toilet We will attempt to get PFTs from [facility] Continue to monitor Supervising Physician Co-Signing Physician Notes Patient seen and examined. Discussed with LANRE victoria. Agree with his assessment and plan as noted. LANRE victoria was helpful in obtaining some records from [facility]. It appears that the patient had pulmonary function test performed August 2014 demonstrating a moderately severe restrictive pattern back then with an FEV1 of 55% predicted and an FVC of 49% predicted. Lung volumes were not assessed then. In addition she was evaluated by the [facility] mill man in December 2016 after experiencing some hypoxemia after a spine surgery. She had interstitial changes noted on chest x-ray which according to them were present dating back to 2013. 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 Presumptively, this is how the diagnosis of rheumatoid arthritis was made. It is unclear who is prescribing methotrexate, mycophenolate, and prednisone for this patient as she has never been seen by the interstitial lung disease clinic through [facility] and has no showed innumerable rheumatology appointments. It appears that again this represents the acute recognition of a problem that has been dating back for at least 5 or 6 years. I suspect her hypoxemia is not actually new but rather long-standing and now apparent that she is in a hospitalized setting. In addition her radiographic abnormalities date back for at least 5 years. I would not recommend surgical lung biopsy in this patient given the advanced nature of her fibrotic disease, advanced age, and medical com orbidities. She had been instructed previously to follow-up with the ILD clinic in [facility] which I think would be an appropriate response as they would have a byproducts maker available to assist in a multidisciplinary approach of disease management. Rheumatology is not available through the [facility] system and given her need for multidisciplinary therapy, would recommend transfer of care to the [facility] system. I would not recommend additional immunosuppression currently as the changes appear to be mostly fibrotic. Continued management of her bronchiectasis with supportive care. It seems reasonable to continue with her prednisone at 20 mg a day until she can be seen by the ILD clinic in [facility] in room. Is unclear whether the patient can actually go home. She may require alf care or assisted living. Unfortunately I think I have very little to offer this patient in the acute setting. Disposition and outpatient follow-up are going to be stone. Subjective Attending: Dr. Stevens Is a 78-year-old female that presented with shortness of breath and hypoxemic respiratory failure. Patient denies any supplemental oxygen use at home. She does have rheumatoid arthritis and fibrotic lung disease. Records have been requested but not received from the [facility] team regarding outpatient treatment for rheumatology. Patient states that she is "not doing very well". She continues with shortness of breath. She currently is receiving chest percussion with a pulmonary vest behind her back. She is also concurrently getting a nebulizer treatment. She states that these modalities help but do not resolve her shortness of breath. The patient denies any fever chills. She has no chest pain or tightness. She has no nausea or vomiting. She denies back pain. Aside from persistent shortness of breath, she endorses no acute complaints. Review of Systems Review of Systems: All systems reviewed & are unremarkable except as noted in HPI & below Physical Exam Physical Exam: GENERAL : No acute distress. Pleasant. Appears cachectic EYES: No icterus, gaze conjugate NOSE: No evidence of epistaxis. Nasal cannula is in place and secure MOUTH: No lesions or candidiasis. Nebulizer treatment ongoing with mask in place NECK: Supple. No stridor appreciated LUNGS: Diffuse, scattered bronchospasm. Decreased breath sounds throughout. No appreciation of rales or rhonchi bilaterally HEART: Regular, rate controlled ABDOMEN: Soft, NT, ND, BS Present EXTREMITIES: No LE edema, pedal pulses intact and equal bilaterally NEURO: A&OX3. No apparent focal deficits Results & Data Vital Signs (Past 12 Hours) Vital Signs Temp Pulse Pulse Resp BP BP Pulse Ox 07/29/19 15:23 36.9 C 88 18 127/70 95 07/29/19 15:05 80 20 93 07/29/19 11:30 36.9 C 85 20 111/70 97 07/29/19 11:14 85 18 97 07/29/19 07:26 68 74 18 97 07/29/19 07:04 36.8 C 78 19 119/72 94 Laboratory Results 07/28/19 06:28 07/26/19 06:05 Diagnostic Findings XR chest 1V portable CLINICAL HISTORY: Shortness of breath. Abnormal chest x-ray COMPARISON STUDY: 07/23/2019 FINDINGS: The cardiac and mediastinal contours remain stable. There are coarse bilateral pulmonary opacities, consistent with chronic lung disease. A superimposed inflammatory process or superimposed cardiogenic edema would be difficult to exclude.[ IMPRESSION: Coarse bilateral pulmonary opacities remain unchanged from the preceding study Electronically signed by: Dayne Stallworth M.D. 07/26/2019 10:51 AM PG Care Time/CCT Total # of Minutes Spent Total Time Spent with Patient: Total time spent is greater than 50% in coordination of care (as documented) at patient's floor/unit and/or counseling patient: 60 minutes including review of outside records.
--- NOTE | 2019-07-29 16:48 | Communication Note ---
Date of Service: July 29, 2019 Lab Results from [facility] 12/14/2016: JODI: Negative CRP: 13 Rheumatoid factor < 10 SSA AB: 6.2 (Negative) SSB AB: 2.0 (Negative) SCL-70 AB: 3.5 (Negative) J0-1 AB: 3.9 (Negative) CCP IgG AB: > 250 (strongly positive)
[2019-07-29] MEDS ORDERED: GUAIFENESIN/CODEINE 100MG/10MG 5ML UDC PO PRN (18:33)
[2019-07-29] MEDS: AMITRIPTYLINE HCL 50 MG TAB PO SCH (19:59)
[2019-07-29] MEDS: ACETAMINOPHEN 325 MG TAB PO PRN (21:10)
[2019-07-30] MEDS: ALBUT/IPRATROP 3MG/0.5MG NEB 3 ML VIAL NEB SCH ×5 (03:16→19:36)
[2019-07-30] MEDS: SODIUM CHLOR 7% 4 ML NEB INH SCH (07:03)
[2019-07-30] MEDS: FOLIC ACID 1 MG TAB PO SCH (09:10)
[2019-07-30] MEDS: GABAPENTIN 300 MG CAP PO SCH ×3 (09:10→20:06)
[2019-07-30] MEDS: ASPIRIN 81 MG ECTAB PO SCH (09:10)
[2019-07-30] MEDS: ATORVASTATIN 20 MG TAB PO SCH (09:11)
[2019-07-30] MEDS: ESCITALOPRAM OXALATE 20 MG TAB PO SCH ×2 (09:11→13:26)
[2019-07-30] MEDS: ENOXAPARIN INJ 30 MG/0.3 ML SYR SQ SCH (09:11)
[2019-07-30] MEDS: predniSONE 20 MG TAB PO SCH (09:13)
[2019-07-30] MEDS: PANTOprazole 40 MG TAB PO SCH (09:13)
[2019-07-30] MEDS: TRAMADOL HCL 50 MG TABLET PO PRN ×2 (09:29→20:05)
--- NOTE | 2019-07-30 11:59 | Hospitalist Progress Note ---
Date of Service July 30, 2019 Assessment & Plan (1) Acute hypoxemic respiratory failure: Gradually improving symptomatically No shortness of breath at rest, minimum cough, Presented with respiratory distress, 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 Significant interval progression of peribronchovascular consolidation involving both lungs with a basilar predominance though involvement extends to the apices. This is consistent with progression of fibrotic lung disease. 2. Patchy groundglass opacities more so in the upper lobes and greater on the right concerning for superimposed bronchopneumonia. 3. Allowing for limitations image quality, no pulmonary embolus. 4. Possible underlying pulmonary artery hypertension. 5. Esophageal dilatation could suggest underlying disease such as scleroderma among other etiologies. 6. Progressive lymphadenopathy likely related to the underlying inflammatory disease. - Blood cultures negative so far Sputum culture Mirta albicans, yeast not Mirta albicans Complete p.o. 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 NORMOCHROMIC/NORMOCYTIC RED BLOOD CELLS, RARE ECHINOCYTES, PMN LEUKOCYTES WITH DOHLE BODIES AND TOXIC GRANULATIONS, UNREMARKABLE LYMPHOCYTES, UNREMARKABLE MONOCYTES, AND UNREMARKABLE PLATELETS ARE ALL SEEN. 2. BLASTS AND SCHISTOCYTES ARE NOT SEEN. 3. THE TRIAD OF CYTOLOGIC FEATURES REQUIRED FOR A DIAGNOSIS OF SEPSIS IS NOT SEEN. 4. ALTHOUGH A FEW HYPOLOBULATED PMN LEUKOCYTES ARE SEEN, THE OTHER SIGNS OF DYSPLASIA ARE NOT SEEN. 5. PLEASE SEE MICROSCOPIC DESCRIPTION. --ANC decreased again today from 860 to 670 (admitted with ANC 200s) discussed with Dr. Kidd - supervisor offset plate preparation likely secondary to patient's methotrexate interacting with antibiotics Right Hand Weakness resolved - patient reported this on 07/27/19 - Brain MRI: IMPRESSION: 1. No evidence of acute or subacute infarction 2. No evidence of intracranial mass in this noncontrast study 3. Extensive white matter disease, statistically on a small vessel ischemic basis - Neurology consulted felt to be from Carpal Tunnel syndrome on ASA hx CAD, CVA as per records --Continue usual medications hypertension -- Stable so far Hypokalemia -- Resolved Chronic pain as per records -- likely from RA -- Continue PRN analgesics mood disorder, at baseline past tobacco abuse DVT prophylaxis. Lovenox subcu Full code Disposition pending lives with daughter PT/OT eval requested to determine requirement for Rehab or SNF Subjective Feels much better today with minimal cough Improvement of shortness of breath, able to get out of bed walking around, still experiencing dyspnea on exertion but improved from yesterday No fever or chills Wearing supplemental oxygen(was not on home O2) Review of Systems Review of Systems: All systems reviewed & are unremarkable except as noted in HPI & below Physical Exam Constitutional: no acute distress Eyes: PERRL, conjunctivae normal, anicteric sclerae ENMT: external ear and nose normal, oropharynx normal Neck: trachea midline, no thyromegaly Respiratory: no respiratory distress Auscultation: + crackles and + wheezes Cardiovascular: RRR, no murmur, no edema Gastrointestinal (Abdomen): normal bowel sounds, soft, nontender, no hepatosplenomegaly Musculoskeletal: no cyanosis or clubbing, extremities motor strength 5/5 Skin: no rashes, warm and dry Neurologic: PERRL, EOMI, accommodation nl, no face palsy, no dysarthria Psychiatric: A+Ox3, euthymic affect Results & Data Vital Signs (Past 12 Hours) Vital Signs Temp Pulse Resp BP Pulse Ox 07/30/19 11:27 36.8 C 85 18 94/57 L 90 07/30/19 10:49 80 20 100 07/30/19 07:48 36.7 C 69 19 115/64 100 07/30/19 07:06 72 18 96 07/30/19 06:50 72 18 96 07/30/19 03:43 36.6 C 72 18 110/67 95 07/30/19 03:16 76 18 98
[2019-07-30] MEDS ORDERED: COUGH DROP (SUGAR FREE) LOZ 24 LOZ/1 BOX BUCCAL PRN (14:45)
[2019-07-30] MEDS: AZITHROMYCIN 250 MG TAB PO SCH (15:05)
[2019-07-30] MEDS: AMITRIPTYLINE HCL 50 MG TAB PO SCH (20:06)
[2019-07-30] MEDS: ACETAMINOPHEN 325 MG TAB PO PRN (21:46)
[2019-07-31] MEDS: ALBUT/IPRATROP 3MG/0.5MG NEB 3 ML VIAL NEB SCH ×6 (01:05→19:35)
[2019-07-31] MEDS: TRAMADOL HCL 50 MG TABLET PO PRN ×2 (09:21→18:34)
[2019-07-31] MEDS: ESCITALOPRAM OXALATE 20 MG TAB PO SCH (10:45)
[2019-07-31] MEDS: ASPIRIN 81 MG ECTAB PO SCH (10:45)
[2019-07-31] MEDS: ATORVASTATIN 20 MG TAB PO SCH (10:46)
[2019-07-31] MEDS: GABAPENTIN 300 MG CAP PO SCH ×3 (10:46→20:43)
[2019-07-31] MEDS: ENOXAPARIN INJ 30 MG/0.3 ML SYR SQ SCH (10:46)
[2019-07-31] MEDS: PANTOprazole 40 MG TAB PO SCH (10:47)
[2019-07-31] MEDS: predniSONE 20 MG TAB PO SCH (10:47)
[2019-07-31] MEDS: AZITHROMYCIN 250 MG TAB PO SCH (14:26)
[2019-07-31] MEDS ORDERED: INFLUENZA ADMINISTRATION CHARGE ONE (14:45)
--- NOTE | 2019-07-31 17:35 | Hospitalist Progress Note ---
Date of Service July 31, 2019 Assessment & Plan (1) Acute hypoxemic respiratory failure: Respiratory status improved markedly No shortness of breath at rest, minimum cough, On oxygen 1 L via nasal cannula only, will order to step exercise in a.m. 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 Significant interval progression of peribronchovascular consolidation involving both lungs with a basilar predominance though involvement extends to the apices. This is consistent with progression of fibrotic lung disease. 2. Patchy groundglass opacities more so in the upper lobes and greater on the right concerning for superimposed bronchopneumonia. 3. Allowing for limitations image quality, no pulmonary embolus. 4. Possible underlying pulmonary artery hypertension. 5. Esophageal dilatation could suggest underlying disease such as scleroderma among other etiologies. 6. Progressive lymphadenopathy likely related to the underlying inflammatory disease. -Cultures been negative Sputum culture Mirta albicans, yeast not Mirta albicans Complete p.o. 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 NORMOCHROMIC/NORMOCYTIC RED BLOOD CELLS, RARE ECHINOCYTES, PMN LEUKOCYTES WITH DOHLE BODIES AND TOXIC GRANULATIONS, UNREMARKABLE LYMPHOCYTES, UNREMARKABLE MONOCYTES, AND UNREMARKABLE PLATELETS ARE ALL SEEN. 2. BLASTS AND SCHISTOCYTES ARE NOT SEEN. 3. THE TRIAD OF CYTOLOGIC FEATURES REQUIRED FOR A DIAGNOSIS OF SEPSIS IS NOT SEEN. 4. ALTHOUGH A FEW HYPOLOBULATED PMN LEUKOCYTES ARE SEEN, THE OTHER SIGNS OF DYSPLASIA ARE NOT SEEN. 5. PLEASE SEE MICROSCOPIC DESCRIPTION. --ANC decreased again today from 860 to 670 (admitted with ANC 200s) discussed with Dr. Kidd - hide paster likely secondary to patient's methotrexate interacting with antibiotics Right Hand Weakness resolved - patient reported this on 07/27/19 - Brain MRI: IMPRESSION: 1. No evidence of acute or subacute infarction 2. No evidence of intracranial mass in this noncontrast study 3. Extensive white matter disease, statistically on a small vessel ischemic basis - Neurology consulted felt to be from Carpal Tunnel syndrome on ASA hx CAD, CVA as per records --Continue usual medications hypertension -- Stable so far Hypokalemia -- Resolved Chronic pain as per records -- likely from RA -- Continue PRN analgesics mood disorder, at baseline past tobacco abuse DVT prophylaxis. Lovenox subcu Full code Disposition Patient lives with daughter, PT OT evaluation requested Possible discharge home tomorrow with home health if remains medically stable Subjective Cough has resolved, feels much better today, no shortness of breath or dyspnea on exertion Was to know if she can be discharged home tomorrow, son visiting On minimum oxygen supplement, 1 L via nasal cannula Ordered for a two-step exercise in a.m. to assess for home oxygen requirement Review of Systems Review of Systems: All systems reviewed & are unremarkable except as noted in HPI & below Physical Exam Constitutional: no acute distress Eyes: PERRL, conjunctivae normal, anicteric sclerae ENMT: external ear and nose normal, oropharynx normal Neck: trachea midline, no thyromegaly Respiratory: no respiratory distress Auscultation: + crackles and + wheezes Cardiovascular: RRR, no murmur, no edema Gastrointestinal (Abdomen): normal bowel sounds, soft, nontender, no hepatosplenomegaly Musculoskeletal: no cyanosis or clubbing, extremities motor strength 5/5 Skin: no rashes, warm and dry Neurologic: PERRL, EOMI, accommodation nl, no face palsy, no dysarthria Psychiatric: A+Ox3, euthymic affect Results & Data Vital Signs (Past 12 Hours) Vital Signs Temp Pulse Resp BP Pulse Ox 07/31/19 15:36 36.9 C 77 20 106/63 93 07/31/19 11:43 85 18 93 07/31/19 07:50 61 18 87 L
[2019-07-31] MEDS: AMITRIPTYLINE HCL 50 MG TAB PO SCH (20:54)
[2019-08-01] MEDS: ALBUT/IPRATROP 3MG/0.5MG NEB 3 ML VIAL NEB SCH ×4 (00:04→11:11)
[2019-08-01] MEDS: ESCITALOPRAM OXALATE 20 MG TAB PO SCH (07:40)
[2019-08-01] MEDS: ENOXAPARIN INJ 30 MG/0.3 ML SYR SQ SCH (07:40)
[2019-08-01] MEDS: FOLIC ACID 1 MG TAB PO SCH (07:40)
[2019-08-01] MEDS: ATORVASTATIN 20 MG TAB PO SCH (07:40)
[2019-08-01] MEDS: ASPIRIN 81 MG ECTAB PO SCH (07:40)
[2019-08-01] MEDS: GABAPENTIN 300 MG CAP PO SCH ×2 (07:41→13:41)
[2019-08-01] MEDS: PANTOprazole 40 MG TAB PO SCH (07:41)
[2019-08-01] MEDS: predniSONE 20 MG TAB PO SCH (07:41)
[2019-08-01] MEDS: TRAMADOL HCL 50 MG TABLET PO PRN (07:43)
--- NOTE | 2019-08-01 13:28 | Discharge Summary ---
Date of Service August 01, 2019 Admission HPI Per Admitting Provider History obtained from patient and records. Medical history significant for CAD, CVA, rheumatoid arthritis as per records, ILD as per ecords, hypertension, hyperlipidemia, chronic pain as per records, mood disorder, past tobacco abuse. Recent confinement [facility] April 2014 for bilateral pneumonia. Recent confinement [facility] December 2016 for neck surgery infection complications. Postop patient noted to be hypoxemic/hypercarbic respiratory failure necessitating BiPAP. Interstitial lung disease attributed to rheumatoid arthritis as per records. BP meds stopped on discharge secondary to low blood pressure as per discharge note. Patient instructed to follow-up with Pulmonology and Rheumatology outpatient but was unable to comply. Few days history of worsening cough symptoms productive of greenish sputum with worsening shortness of breath. No chest pain. No aspiration. No relief with home nebulizer and outpatient steroid Rx initiated by PCP. Patient denies fluid retention. At home O2 sats noted to be in the 70s. DuoNeb and Solu-Medrol administered by EMS prior to ER arrival. At the ER, patient received IV vancomycin and Zosyn for sepsis. Medical History as above Surgical History : Neck surgery, hip replacement, partial thyroidectomy, cholecystectomy, hysterectomy, BTL, oviduct/ovary removal, knee surgery, appendectomy Family History : Lung cancer, cervical cancer, dementia, seizures Personal/Social history : Past tobacco abuse, no EtOH intake Principal Diagnosis Acute on chronic hypoxic respiratory failure/COPD exacerbation/interstitial lung disease/rheumatoid arthritis Discharge Exam Constitutional WD/WN, vitals as above no acute distress Eyes PERRL, conjunctivae normal, anicteric sclerae ENMT external ear and nose normal, oropharynx normal Neck trachea midline, no thyromegaly Respiratory + cough Auscultation: + crackles and + wheezes Cardiovascular RRR, no murmur, no edema Gastrointestinal (Abdomen) normal bowel sounds, soft, nontender, no hepatosplenomegaly Skin no rashes, warm and dry Neurologic PERRL, EOMI, accommodation nl, no face palsy, no dysarthria Psychiatric A+Ox3, euthymic affect Discharge Data Allergies Allergy/AdvReac Type Severity Reaction Status Date / Time albuterol AdvReac Intermediate JITTERY Verified 04/23/14 12:15 FROM ALBUTEROL NEBS Consultations 07/22/19 19:13 ED Decision to Admit Stat 07/22/19 21:03 Consult Case Management - Discharge Planning Routine Consult Health Information Management Routine Consult Pulmonology Routine 07/27/19 12:45 Consult Neurology Routine Ordered Studies 07/22/19 18:12 CT angio chest PE protocol Stat 07/27/19 12:43 MR brain wo con Stat Hospital Course (1) Acute hypoxemic respiratory failure: Respiratory status improved No shortness of breath at rest, minimum cough, Two-step exercise done today: Shows no hypoxia at rest, requires 3 L oxygen on ambulation Prescription given for home O2 to case management, Patient is counseled repeatedly to quit smoking Presented with respiratory distress, 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 Significant interval progression of peribronchovascular consolidation involving both lungs with a basilar predominance though involvement extends to the apices. This is consistent with progression of fibrotic lung disease. 2. Patchy groundglass opacities more so in the upper lobes and greater on the right concerning for superimposed bronchopneumonia. 3. Allowing for limitations image quality, no pulmonary embolus. 4. Possible underlying pulmonary artery hypertension. 5. Esophageal dilatation could suggest underlying disease such as scleroderma among other etiologies. 6. Progressive lymphadenopathy likely related to the underlying inflammatory disease. -Cultures been negative Sputum culture Mirta albicans, yeast not Mirta albicans Completed antibiotic 7 days course, Will be discharged home with a slow prednisone taper Given advanced nature of fibrotic lung disease, advanced age and medical comorbidities, patient will benefit with follow-up with interstitial lung disease clinic, preferably at a tertiary care center Information given to follow-up with pulmonology at [facility] Dr.Paul Alix Vivas [facility] - Pulmonary Medicine [address] [place] [address] Rheumatoid arthritis Patient is continued with mycophenolate, prednisone, 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 NORMOCHROMIC/NORMOCYTIC RED BLOOD CELLS, RARE ECHINOCYTES, PMN LEUKOCYTES WITH DOHLE BODIES AND TOXIC GRANULATIONS, UNREMARKABLE LYMPHOCYTES, UNREMARKABLE MONOCYTES, AND UNREMARKABLE PLATELETS ARE ALL SEEN. 2. BLASTS AND SCHISTOCYTES ARE NOT SEEN. 3. THE TRIAD OF CYTOLOGIC FEATURES REQUIRED FOR A DIAGNOSIS OF SEPSIS IS NOT SEEN. 4. ALTHOUGH A FEW HYPOLOBULATED PMN LEUKOCYTES ARE SEEN, THE OTHER SIGNS OF DYSPLASIA ARE NOT SEEN. 5. PLEASE SEE MICROSCOPIC DESCRIPTION. --ANC decreased again today from 860 to 670 (admitted with ANC 200s) discussed with Dr. 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 No evidence of acute or subacute infarction 2. No evidence of intracranial mass in this noncontrast study 3. Extensive white matter disease, statistically on a small vessel ischemic basis - Neurology consulted felt to be from Carpal Tunnel syndrome on ASA hx CAD, CVA as per records --Continue usual medications hypertension -- Stable so far Hypokalemia -- Resolved Chronic pain as per records -- likely from RA -- Continue PRN analgesics mood disorder, at baseline Tobacco abuse: Repeated counseling provided for smoking cessation DVT prophylaxis. Lovenox subcu Full code Disposition Patient lives at home with daughter, Arrangements made for home health visiting nurse And Home oxygen supply Stable to be discharged home today Total Time Total Time Spent Total Time Spent (In Minutes): Approximately 45 minutes Total Time Includes: Examination of the Patient, Discharge Planning and Medication Reconciliation Discharge Plan Discharge Items Patient Disposition: Home - Home Health Services Reason For Visit: SEPSIS Discharge Diagnosis: Acute on chronic hypoxic respiratory failure/COPD exacerbation/interstitial lung disease/rheumatoid arthritis Activity: Resume your previous activity Non-emergency contact: Primary Care Provider Call non-emergency contact if: you have any medication questions Follow-up/Referrals: Vanessa Malone [Primary Care Provider] - Diet: Heart Healthy Addtl Attending Provider Instructions: Follow-up with family physician Dr. Malone in 1 week Follow-up with rheumatology for continued management of rheumatoid arthritis You have advanced lung disease, Which needs follow-up/treatment at high level of care Need to Establish care with pulmonology/interstitial lung disease clinic at [facility] Dr. Chip Vivas ( Lung specialist ) [facility] - Pul[facility] Medicine [address] [place] [id number] Please call #[phone] to schedule an appointment -Is very important for you to quit smoking, You already have underlying advanced interstitial lung disease, you are going to require 3 L oxygen with activities Further smoking will put you on permanent respiratory failure/lung damagecausing limiting your activity, energy, recurrent hospital admission, pneumonia/infection, Pending Studies at Discharge: No Stand-Alone Forms: My [facility] Medications and DC Order Prescriptions: New prednisone 10 mg tablet 10 mg PO UD Qty: 21 RF: 0 Continued methotrexate sodium 2.5 mg tablet 15 mg PO WK RF: 0 folic acid 1 mg tablet 1 mg PO [id number] RF: 0 atorvastatin 20 mg tablet 20 mg PO DAILY RF: 0 amitriptyline 50 mg tablet 50 mg PO HS RF: 0 gabapentin 300 mg capsule 300 mg PO TID RF: 0 escitalopram oxalate 20 mg tablet 20 mg PO QAM RF: 0 pantoprazole 20 mg tablet,delayed release (DR/EC) 20 mg PO DAILY RF: 0 albuterol sulfate 90 mcg/actuation HFA aerosol inhaler 2 puff inhalation Q6H PRN (Reason: Shortness Of Breath Or Wheezing) RF: 0 tramadol 50 mg tablet 50 mg PO Q8H PRN (Reason: Pain) RF: 0 Discharge Orders: Discharge Order (Routine); Ordered 08/01/19 Ordered By: Jolene Saldivar Admission Data Admit Date/Time: 07/22/19 20:07 Attending Provider: Jolene Saldivar Admit Provider: Maco Chauhan Primary Care Provider: Vanessa Malone Other Providers: Maco Chauhan ; Cristhian More ; Panchito Waite
[2019-08-01] MEDS: AZITHROMYCIN 250 MG TAB PO SCH (13:41)
[2019-08-03 02:47] LABS: ANA Screen Negative (Negative); Rheumatoid Factor 319 IU/ML (<14)
== END 2019-08-01 14:48 | disposition home health service (06) | DRG 871 ==
LOC: ED 17:13 → 2S 20:07 → SUATTDRO 20:07 → 2S 20:47 → 2N 07-30 13:45

== ENCOUNTER 2020-02-02 11:22 | Inpatient (IN) ==
[2020-02-02] MEDS ORDERED: methylPREDNISolone 125 MG/2 ML VIAL IV STA (11:44)
--- NOTE | 2020-02-02 11:56 | Electrocardiogram Report ---
Test Reason : Blood Pressure : / mmHG Vent. Rate : 100 BPM Atrial Rate : 100 BPM P-R Int : 148 ms QRS Dur : 086 ms QT Int : 366 ms P-R-T Axes : 043 -27 085 degrees QTc Int : 472 ms Poor data quality, interpretation may be adversely affected Sinus rhythm with Minimal voltage criteria for LVH, may be normal variant Poor R wave progression, consider anterior CA vs. lead placement vs. LVH Abnormal ECG Confirmed by Skip Smith ([id number]) on 02/02/2020 11:55:45 AM Referred By: ED Confirmed By:Juan Smith
--- NOTE | 2020-02-02 12:02 | Emergency Department Note ---
Impression & Plan COPD exacerbation, Hypoxia ED Provider Note Provider: Edmund Ferrell MD DATE OF SERVICE: 02/02/2020 CHIEF COMPLAINT: Chills, diarrhea, weakness HISTORY OF PRESENT ILLNESS: Patient is a 79-year-old female presenting via ambulance today with a past medical history of CVA, hyperlipidemia, hypert ension, COPD, pneumonia with a complaint of 4 days of diarrhea with a week of weakness. States he has had some chills. Noted to be hypoxic into the mid 80s on room air for EMS. Not normally on oxygen. Denies sick contacts and lives at home with daughter who is been home quarantined as well. Eating okay. States that generalize diffuse myalgias particular on the joints. Is on methotrexate for her arthritis. Some slight abdominal discomfort is reported. No blood in the stool reported. Denies any recent falls. EMS reports and the patient states that time she is felt a bit confused. Not anticoagulated at this time. Patient does ask me during exam if I have a development intern or matches as she wishes to smoke. REVIEW OF SYSTEMS: A total of 10 review of systems was obtained and negative except as stated above in the HPI. PAST MEDICAL HISTORY: As noted above MEDICATIONS: Reviewed nursing notes and includes methotrexate, gabapentin. Patient also states she has inhalers at home but she has been using the regularly for the last week. SOCIAL HISTORY: Patient continues to smoke daily, lives at home with her daughter PHYSICAL EXAM: GENERAL: alert and oriented in no acute distress on stretcher Head: normocephalic and atraumatic EYES: No injection, discharge or icterus. PERRL NECK: Trachea midline. Supple. ENT: Mucous membranes pink and moist. LUNGS: Airway patent. No retractions. Breath sounds clear HEART: Regular rate and rhythm. No chest wall tenderness ABDOMEN: Soft and mild diffuse tenderness, without guarding or rebound. SKIN: Acyanotic, warm, dry, without rashes EXTREMITIES: Without swelling, tenderness or deformity NEUROLOGICAL: No focal deficits. No aphasia. No facial droop or slurred speech. Normal strength and tone in the extremities. Sensation to gross touch normal. Ambulatory. EK bpm normal sinus rhythm. No PVC. Some motion artifact is notable due to respiratory variation. QTC of 472. No ST segment elevation or depression. CONTINUOUS CARDIAC MONITORING: was ordered and showed a heart rate of bpm in Patient's hypertension was referred to the hospitalist/PCP HOSPITAL COURSE: 1135 Patient was first seen and H&P performed. Patient was weaned to 1 L of nasal cannula. 1338 Patient reassessed and updated. Patient was still on 1 L of oxygen. Updated on findings and plan of care. Laila hospitalist paged. Patient's laboratory studies and imaging reviewed. Differential includes Infection, dehydration, metabolic abnormality, hy po/hyperglycemia, electrolyte disturbance, anemia, hypoxia, cardiac sources, intracerebral event, toxicologic, neurologic, as well as other pathologies. IMPRESSION/MEDICAL DECISION MAKING: Patient presented with weakness several days of diarrhea with some mild generalized abdominal pain and diffuse myalgias. Now with a new oxygen requirement. Patient has a significant leukocytosis in comparison to previous. Patient is maintained on methotrexate. No significant electrolyte abnormalities or evidence of acute hepatitis. Procalcitonin not significantly elevated. Troponin detectable but not abnormal. Lactate not elevated. VBG without acidosis. I did complete blood cultures with concern for possible occult infection. Did give a small dose of steroids here initially. CT the head shows chronic age-related changes without acute intracranial pathology. Do have a lower suspicion this acutely represents an acute CVA. CT the abdomen pelvis with chronic age-related findings without acute process per the radiology interpretation. Patient does have diffuse parenchymal fibrosis without evidence of classic pneumonia or PE. Some mild interstitial changes. Believe likely the patient is suffering from more of a COPD exacerbation and possible bronchitis. Given doxycycline for atypical coverage and a dose ceftriaxone. Have a low suspicion for acute coronavirus infection in this patient. Given oxygen requirement and her weakened state feel that further observation the hospital should be considered. The hospitalist was contacted DIAGNOSIS: COPD exacerbation, bronchitis, hypoxia DISPOSITION: Hospitalist will evaluate Patient was agreeable with this plan. Past Med/Surg History Social History Preferred Language: Pashto Communication Ability: Effective At Risk Paraprofessional Required: No Beliefs That Will Affect Care: None marital status: Current Living Situation: Family current occupational status: retired Feels Safe at Home: Yes Smoking Status: Current every day smoker Hx Alcohol Use: No Hx Substance Use: No Allergies Allergies Allergy/AdvReac Type Severity Reaction Status Date / Time albuterol AdvReac Intermediate JITTERY Verified 02/02/20 12:04 FROM ALBUTEROL NEBS Home Meds Home Medications Medication Instructions Recorded Confirmed albuterol sulfate 2 puff INHALATION Q6H PRN 07/22/19 02/02/20 amitriptyline 50 mg PO HS 07/22/19 02/02/20 atorvastatin 20 mg PO DAILY 07/22/19 02/02/20 escitalopram oxalate 20 mg PO QAM 07/22/19 02/02/20 gabapentin 300 mg PO TID 07/22/19 02/02/20 methotrexate sodium 2.5 mg PO HS 07/22/19 02/02/20 pantoprazole 20 mg PO DAILY 07/22/19 02/02/20 tramadol 50 mg PO Q8H PRN 07/22/19 02/02/20 buspirone 5 mg PO HS 02/02/20 02/02/20 Results & Data (ED) Vital Signs Vital Signs - 24 hr 02/02/20 11:33 02/02/20 11:38 02/02/20 11:41 Temperature 37.2 C Temperature Source Oral Pulse Rate 97 H 99 H 97 H Pulse Rate from SpO2 Sensor 97 H 97 H Respiratory Rate 21 24 21 Respiratory Depth Normal Respiratory Pattern Rapid/Shallow Tachypnea Blood Pressure 153/90 H 153/90 H Blood Pressure Mean 103 111 Blood Pressure Position Lying Pulse Oximetry 85 L 93 Oxygen Delivery Method Room Air Oxygen Flow Rate Sepsis Recent Fever Within 48 Hours No Sepsis New/Unexplained Change in Mental Status No Sepsis Action Taken by Nursing No Action Required Oxygen Flow Rate - Titration Pulse Oximetry Post Tiitration 02/02/20 11:48 02/02/20 12:00 02/02/20 12:03 Temperature Temperature Source Pulse Rate 97 H 98 H Pulse Rate from SpO2 Sensor 97 H Respiratory Rate 22 Respiratory Depth Respiratory Pattern Blood Pressure 136/80 Blood Pressure Mean 94 Blood Pressure Position Pulse Oximetry 98 95 96 Oxygen Delivery Method Nasal Cannula Nasal Cannula Oxygen Flow Rate 4 1 Sepsis Recent Fever Within 48 Hours Sepsis New/Unexplained Change in Mental Status Sepsis Action Taken by Nursing Oxygen Flow Rate - Titration 1 Pulse Oximetry Post Tiitration 93 02/02/20 12:30 02/02/20 14:00 Temperature Temperature Source Pulse Rate 97 H 98 H Pulse Rate from SpO2 Sensor 97 H 100 H Respiratory Rate 24 24 Respiratory Depth Respiratory Pattern Blood Pressure 147/87 H 154/77 H Blood Pressure Mean 103 95 Blood Pressure Position Pulse Oximetry 95 95 Oxygen Delivery Method Nasal Cannula Nasal Cannula Oxygen Flow Rate 1 1 Sepsis Recent Fever Within 48 Hours Sepsis New/Unexplained Change in Mental Status Sepsis Action Taken by Nursing Oxygen Flow Rate - Titration Pulse Oximetry Post Tiitration Laboratory Data Result diagrams: 02/02/20 11:57 02/02/20 11:57 Lab Results 02/02/20 02/02/20 02/02/20 Range/Units 11:57 11:57 11:57 WBC 12.70 H (4.8-10.8) K/uL RBC 4.38 (4.2-5.4) M/uL Hgb 11.9 L (12.0-16.0) g/dL Hct 38.2 (37-47) % MCV 87.2 (80-100) fL MCH 27.2 (25-34) pg MCHC 31.2 L (32-36) g/dL RDW Std Deviation 59.2 H (36.4-46.3) fL RDW Coeff of Jose Manuel 18.6 H (11.5-14.5) % Plt Count 335 (130-400) K/uL MPV 9.5 (7.4-10.4) fL Immature Gran % (Auto) 0.3 % Neut % (Auto) 78.3 % Lymph % (Auto) 13.2 % [place] % (Auto) 7.8 % Eos % (Auto) 0.2 % Baso % (Auto) 0.2 % Immature Gran # (Auto) 0.04 H (0.00-0.02) K/uL Neut # (Auto) 9.94 H (1.4-6.5) K/uL Lymph # (Auto) 1.68 (1.2-3.4) K/uL [place] # (Auto) 0.99 H (0.11-0.59) K/uL Eos # (Auto) 0.02 (0-0.5) K/uL Baso # (Auto) 0.03 (0-0.2) K/uL PT 11.9 (9.0-12.0) Seconds INR 1.1 (0.9-1.1) VBG pH (7.36-7.41) VBG pCO2 (38-50) mmHg VBG pO2 mmHg VBG HCO3 mmol/L VBG O2 Saturation % VBG Base Excess mEq/L Barometric Pressure mm/Hg Sodium 135 L (136-145) mmol/L Potassium 3.9 (3.5-5.1) mmol/L Chloride 105 (98-107) mmol/L Carbon Dioxide 25 (21-32) mmol/L Anion Gap 6.0 (3-11) BUN 12 (7-18) mg/dl Creatinine 0.58 L (0.6-1.2) mg/dl Est Cr Clr Drug Dosing 61.3 ml/min Est GFR ( Amer) 103.0 Est GFR (Non-Af Amer) 88.9 BUN/Creatinine Ratio 19.8 (10-20) Glucose 93 (70-99) mg/dl Lactate (0.4-2.0) mmol/L Calcium 8.3 L (8.5-10.1) mg/dl Magnesium 1.9 (1.8-2.4) mg/dl Total Bilirubin 0.3 (0.2-1) mg/dl AST 21 (15-37) U/L ALT 22 (12-78) U/L Alkaline Phosphatase 153 H (45-117) U/L Ammonia (11-32) umol/L Troponin I 0.016 (0-0.045) ng/ml Total Protein 7.9 (6.4-8.2) gm/dl Albumin 2.4 L (3.4-5.0) gm/dl Globulin 5.5 H (2.5-4.0) gm/dl Albumin/Globulin Ratio 0.4 L (0.9-2) Procalcitonin (0-0.5) ng/ml TSH 0.619 (0.300-4.500) uIu/ml Urine Color Urine Appearance (Clear) Urine pH (4.5-7.5) Ur Specific [place] (1.000-1.030) Urine Protein (Negative) Urine Glucose (UA) (Negative) Urine Ketones (Negative) Urine Blood (Negative) Urine Nitrite (Negative) Urine Bilirubin (Negative) Urine Urobilinogen (Negative) Ur Leukocyte Esterase (Negative) 02/02/20 02/02/20 02/02/20 Range/Units 11:57 11:57 11:57 WBC (4.8-10.8) K/uL RBC (4.2-5.4) M/uL Hgb (12.0-16.0) g/dL Hct (37-47) % MCV (80-100) fL MCH (25-34) pg MCHC (32-36) g/dL RDW Std Deviation (36.4-46.3) fL RDW Coeff of Jose Manuel (11.5-14.5) % Plt Count (130-400) K/uL MPV (7.4-10.4) fL Immature Gran % (Auto) % Neut % (Auto) % Lymph % (Auto) % [place] % (Auto) % Eos % (Auto) % Baso % (Auto) % Immature Gran # (Auto) (0.00-0.02) K/uL Neut # (Auto) (1.4-6.5) K/uL Lymph # (Auto) (1.2-3.4) K/uL [place] # (Auto) (0.11-0.59) K/uL Eos # (Auto) (0-0.5) K/uL Baso # (Auto) (0-0.2) K/uL PT (9.0-12.0) Seconds INR (0.9-1.1) VBG pH 7.37 (7.36-7.41) VBG pCO2 41 (38-50) mmHg VBG pO2 51 mmHg VBG HCO3 23 mmol/L VBG O2 Saturation 82.6 % VBG Base Excess -2.1 mEq/L Barometric Pressure 719.9 mm/Hg Sodium (136-145) mmol/L Potassium (3.5-5.1) mmol/L Chloride (98-107) mmol/L Carbon Dioxide (21-32) mmol/L Anion Gap (3-11) BUN (7-18) mg/dl Creatinine (0.6-1.2) mg/dl Est Cr Clr Drug Dosing ml/min Est GFR ( Amer) Est GFR (Non-Af Amer) BUN/Creatinine Ratio (10-20) Glucose (70-99) mg/dl Lactate 1.1 (0.4-2.0) mmol/L Calcium (8.5-10.1) mg/dl Magnesium (1.8-2.4) mg/dl Total Bilirubin (0.2-1) mg/dl AST (15-37) U/L ALT (12-78) U/L Alkaline Phosphatase (45-117) U/L Ammonia 25.5 (11-32) umol/L Troponin I (0-0.045) ng/ml Total Protein (6.4-8.2) gm/dl Albumin (3.4-5.0) gm/dl Globulin (2.5-4.0) gm/dl Albumin/Globulin Ratio (0.9-2) Procalcitonin (0-0.5) ng/ml TSH (0.300-4.500) uIu/ml Urine Color Urine Appearance (Clear) Urine pH (4.5-7.5) Ur Specific [place] (1.000-1.030) Urine Protein (Negative) Urine Glucose (UA) (Negative) Urine Ketones (Negative) Urine Blood (Negative) Urine Nitrite (Negative) Urine Bilirubin (Negative) Urine Urobilinogen (Negative) Ur Leukocyte Esterase (Negative) 02/02/20 02/02/20 Range/Units 11:57 14:00 WBC (4.8-10.8) K/uL RBC (4.2-5.4) M/uL Hgb (12.0-16.0) g/dL Hct (37-47) % MCV (80-100) fL MCH (25-34) pg MCHC (32-36) g/dL RDW Std Deviation (36.4-46.3) fL RDW Coeff of Jose Manuel (11.5-14.5) % Plt Count (130-400) K/uL MPV (7.4-10.4) fL Immature Gran % (Auto) % Neut % (Auto) % Lymph % (Auto) % [place] % (Auto) % Eos % (Auto) % Baso % (Auto) % Immature Gran # (Auto) (0.00-0.02) K/uL Neut # (Auto) (1.4-6.5) K/uL Lymph # (Auto) (1.2-3.4) K/uL [place] # (Auto) (0.11-0.59) K/uL Eos # (Auto) (0-0.5) K/uL Baso # (Auto) (0-0.2) K/uL PT (9.0-12.0) Seconds INR (0.9-1.1) VBG pH (7.36-7.41) VBG pCO2 (38-50) mmHg VBG pO2 mmHg VBG HCO3 mmol/L VBG O2 Saturation % VBG Base Excess mEq/L Barometric Pressure mm/Hg Sodium (136-145) mmol/L Potassium (3.5-5.1) mmol/L Chloride (98-107) mmol/L Carbon Dioxide (21-32) mmol/L Anion Gap (3-11) BUN (7-18) mg/dl Creatinine (0.6-1.2) mg/dl Est Cr Clr Drug Dosing ml/min Est GFR ( Amer) Est GFR (Non-Af Amer) BUN/Creatinine Ratio (10-20) Glucose (70-99) mg/dl Lactate (0.4-2.0) mmol/L Calcium (8.5-10.1) mg/dl Magnesium (1.8-2.4) mg/dl Total Bilirubin (0.2-1) mg/dl AST (15-37) U/L ALT (12-78) U/L Alkaline Phosphatase (45-117) U/L Ammonia (11-32) umol/L Troponin I (0-0.045) ng/ml Total Protein (6.4-8.2) gm/dl Albumin (3.4-5.0) gm/dl Globulin (2.5-4.0) gm/dl Albumin/Globulin Ratio (0.9-2) Procalcitonin 0.12 (0-0.5) ng/ml TSH (0.300-4.500) uIu/ml Urine Color Yellow Urine Appearance Clear (Clear) Urine pH 5.5 (4.5-7.5) Ur Specific [place] > 1.045 H (1.000-1.030) Urine Protein Negative (Negative) Urine Glucose (UA) Negative (Negative) Urine Ketones 1+ H (Negative) Urine Blood Negative (Negative) Urine Nitrite Negative (Negative) Urine Bilirubin Negative (Negative) Urine Urobilinogen Negative (Negative) Ur Leukocyte Esterase Negative (Negative) Administered Medications Ioversol (Optiray 320 125ml) 94 ml IV ONCE PRN PRN Reason: Interaction Checking Stop: 02/06/20 12:42 Last Admin: 02/02/20 12:43 Dose: 94 ml Documented by: [id number] Discontinued Medications Doxycycline Hyclate (Vibramycin) 100 mg PO NOW STA Stop: 02/02/20 13:47 Last Admin: 02/02/20 14:43 Dose: 100 mg Documented by: [id number] Ceftriaxone Sodium (Rocephin) 1,000 mg in 50 mls @ 100 mls/hr IV NOW STA Stop: 02/02/20 14:17 Last Admin: 02/02/20 14:43 Dose: 100 mls/hr Documented by: [id number] Methylprednisolone (Solumedrol) 60 mg IV NOW STA Stop: 02/02/20 11:45 Last Admin: 02/02/20 12:40 Dose: 60 mg Documented by: [id number] Discharge Plan Visit Data Chief Complaint: Illness Stated Complaint: chills,diarrhea ED Provider: Edmund Ferrell Discharge Problem: COPD exacerbation, Hypoxia Patient Disposition: Being Evaluated by Hospitalist Forms Stand Alone Forms: My [facility] Prescriptions Prescriptions: No Action buspirone 5 mg tablet 5 mg PO HS RF: 0 methotrexate sodium 2.5 mg tablet 2.5 mg PO HS RF: 0 atorvastatin 20 mg tablet 20 mg PO DAILY RF: 0 amitriptyline 50 mg tablet 50 mg PO HS RF: 0 gabapentin 300 mg capsule 300 mg PO TID RF: 0 escitalopram oxalate 20 mg tablet 20 mg PO QAM RF: 0 pantoprazole 20 mg tablet,delayed release (DR/EC) 20 mg PO DAILY RF: 0 albuterol sulfate 90 mcg/actuation HFA aerosol inhaler 2 puff inhalation Q6H PRN (Reason: Shortness Of Breath Or Wheezing) RF: 0 tramadol 50 mg tablet 50 mg PO Q8H PRN (Reason: Pain) RF: 0 Referrals Referrals: Vanessa Malone [Primary Care Provider] -
[2020-02-02 12:08] LABS: Basophils # (auto) 0.03 K/uL (0-0.2); Basophils % (auto) 0.2 %; Eosinophils # (auto) 0.02 K/uL (0-0.5); Eosinophils % (auto) 0.2 %; Hematocrit (blood only) 38.2 % (37-47); Hemoglobin 11.9 g/dL (12.0-16.0); Immature Granulocytes # (auto) 0.04 K/uL (0.00-0.02); Immature Granulocytes % (auto) 0.3 %; Lymphocytes # (auto) 1.68 K/uL (1.2-3.4); Lymphocytes % (auto) 13.2 %; Mean Corpuscular Hemoglobin 27.2 pg (25-34); Mean Corpuscular Hgb Conc 31.2 g/dL (32-36); Mean Corpuscular Volume 87.2 fL (80-100); Mean Platelet Volume 9.5 fL (7.4-10.4); Monocytes # (auto) 0.99 K/uL (0.11-0.59); Monocytes % (auto) 7.8 %; Neutrophils # (auto) 9.94 K/uL (1.4-6.5); Neutrophils % (auto) 78.3 %; Platelet Count 335 K/uL (130-400); RDW Coefficient of Variation 18.6 % (11.5-14.5); RDW Standard Deviation 59.2 fL (36.4-46.3); Red Blood Count 4.38 M/uL (4.2-5.4)
[2020-02-02 12:11] LABS: Base Excess VBG -2.1 mEq/L; Oxygen Saturation VBG 82.6 %; pH VBG 7.37 (7.36-7.41)
[2020-02-02 12:16] LABS: INR 1.1 (0.9-1.1); Prothrombin Time 11.9 Seconds (9.0-12.0)
[2020-02-02 12:24] LABS: Albumin Level 2.4 gm/dl (3.4-5.0); BUN Creatinine Ratio 19.8 (10-20); Calcium 8.3 mg/dl (8.5-10.1); Creatinine Clr Calc Pharmacy 61.3 ml/min; Est GFR (Non-African American) 88.9; Magnesium 1.9 mg/dl (1.8-2.4); Potassium 3.9 mmol/L (3.5-5.1)
[2020-02-02 12:35] LABS: Albumin Globulin Ratio 0.4 (0.9-2); Bilirubin,Total 0.3 mg/dl (0.2-1); Globulin 5.5 gm/dl (2.5-4.0); Thyroid Stimulating Hormone 0.619 uIu/ml (0.300-4.500); Total Protein 7.9 gm/dl (6.4-8.2); Troponin I 0.016 ng/ml (0-0.045)
[2020-02-02] MEDS ORDERED: OPTIRAY 320 125ml IV PRN (12:43)
--- NOTE | 2020-02-02 12:58 | CT Scan Report ---
CT head/brain wo con CT DOSE: 1027.49 mGy.cm HISTORY: Weakness. Confusion. weakness, confusion TECHNIQUE: Multiaxial CT images of the head were performed without the use of intravenous contrast. A dose lowering technique was utilized adhering to the principles of ALARA. Comparison: None. Findings: The paranasal sinuses and mastoid air cells are clear. The calvarium and skull base are int act. The ventricles and sulci are within normal limits. There is no mass, hematoma, midline shift, or acute infarct. Considerable chronic small vessel change. Impression: No acute intracranial abnormality. Considerable age-related chronic small vessel change. ACT 112: Negative or not required by law. The above report was generated using voice recognition software. It may contain grammatical, syntax or spelling errors. Electronically signed by: Theo Forde M.D. 02/02/2020 12:57 PM
--- NOTE | 2020-02-02 13:02 | CT Scan Report ---
CT abd pelvis IV con only CT DOSE: HISTORY: Chest pain. Dyspnea. diarrhea, weak, difuse pain TECHNIQUE: Multiaxial CT images of the abdomen and pelvis were performed following the use of intrave nous contrast. A dose lowering technique was utilized adhering to the principles of ALARA. COMPARISON STUDY: None. FINDINGS: Lung bases show diffuse bilateral parenchymal infiltrative/fibrotic change. Bulk of these f indings appear to be chronic based on the chest series of 07/26/2019. Liver and spleen appear uniform. There is biliary ductal prominence presumably a postoperative basis. Pancreas is atrophied. Kidneys demonstrate several small subcentimeter cortical cyst but are negativ e for hydronephrosis. The bowel pattern overall is nonobstructive. Bladder is mildly distended. There are bilateral hip pro sthetics. There is considerable degenerative change of the low thoracic as well as lumbar spine. IMPRESSION:: 1. Diffuse bibasilar parenchymal fibrosis the bulk of which is most likely chronic. 2. Chronic and age-related findings of the abdomen and pelvis with no acute process. ACT 112: Negative or not required by law. The above report was generated using voice recognition software. It may contain grammatical, syntax or spelling errors. Electronically signed by: Theo Forde M.D. 02/02/2020 1:01 PM
--- NOTE | 2020-02-02 13:20 | XRay Report ---
XR chest 1V portable CLINICAL HISTORY: weakness dyspnea COMPARISON STUDY: 07/26/2019 FINDINGS: Diffuse bilateral parenchymal fibrotic change. This is improved compared to the prior study . No significant cardiac enlargement. IMPRESSION: Diffuse parenchymal fibrotic change throughout both hemithoraces. The bulk of this appea rs to be chronic and moderately improved from the prior exam. ACT 112: Negative or not required by law. The above report was generated using voice recognition software. It may contain grammatical, syntax or spelling errors. Electronically signed by: Theo Forde M.D. 02/02/2020 1:18 PM
--- NOTE | 2020-02-02 13:38 | CT Scan Report ---
CT ANGIOGRAPHY OF THE CHEST, PULMONARY EMBOLUS PROTOCOL CLINICAL HISTORY: Shortness of breath. Evaluate for pulmonary embolus. COMPARISON STUDY: Chest CT July 22, 2019. Chest radiograph July 26, 2019. TECHNIQUE: Following IV administration of 94 mL of Optiray-320, helical axial images of the chest wer e obtained utilizing the pulmonary embolus protocol. Maximal intensity projections and sagittal and coronal reformats were viewed on an independent 3D workstation. IV contrast was administered without complication. Automated exposure control was utilized for the study. A dose lowering technique was utilized adhering to the principles of ALARA. FINDINGS: This exam is compromised by motion artifact. No pulmonary emboli are identified. There is no thoracic aortic dissection. Note is made of moderate cardiomegaly. There is no pericardial effusio n. Prominent thoracic lymph nodes have decreased in size since CT of July 22, 2019. There is no pne umothorax or pleural effusion. Lungs are suboptimally assessed given respiratory motion. Note is made of extensive interstitial lung disease with reticulation, groundglass opacities and traction bronchi ectasis. No superimposed consolidation is present. There may be mild superimposed groundglass opacity . No cavitation is present. The abdomen and pelvis will be reported separately. IMPRESSION: 1. No pulmonary emboli identified although segmental and subsegmental pulmonary arteries suboptimally assessed given respiratory motion. 2. Findings consistent with interstitial lung disease with pulmonary fibrosis. No superimposed consol idation. Mild groundglass opacity may reflect a mild superimposed infectious process, pulmonary edema or active alveolitis. 3. Cardiomegaly. ACT 112: Negative or not required by law. Electronically signed by: Rosalio Hunt M.D. 02/02/2020 1:36 PM
[2020-02-02] MEDS ORDERED: DOXYCYCLINE HYCLATE 100 MG CAP PO STA (13:46)
[2020-02-02] MEDS ORDERED: cefTRIAXone SODIUM 1,000 MG/50 ML BAG IV STA (13:48)
[2020-02-02 14:06] LABS: Appearance Urine Clear (Clear); Bilirubin Urine Negative (Negative); Blood Urine Negative (Negative); Color Urine Yellow; Glucose Urine UA Negative (Negative); Ketones Urine 1+ (Negative); Leukocyte Esterase Urine Negative (Negative); Nitrite Urine Negative (Negative); Protein Urine Negative (Negative); Specific Gravity Urine > 1.045 (1.000-1.030); Urobilinogen Urine Negative (Negative); pH Urine 5.5 (4.5-7.5)
--- NOTE | 2020-02-02 14:31 | History & Physical Report ---
Date of Service February 02, 2020 Assessment & Plan (1) Hypoxia: New onset hypoxia, not using oxygen at home. See plan below. cont supplemental oxygen with titration to 88-92%. Wean off as tolerated. COVID-19 test pending. No recent travel or known sick contacts. ROS + myalgias, +dyspnea, +cough, +self reports of some confusion, ?new GI symptoms although she denied this to me. Test also considered as she is higher risk 2/2 age, ?immunosuppressive status recently on MTX, known ILD with bronchiectasis and continued smoker. Placed in airborne precautions pending results. (2) Bronchiectasis: ? flare, however, imaging appears improved from prior in Jul 2019. Discussed peripherally with pulmonary provider development consultant who is familiar with her case. He recommends this could be managed as outpatient, however, agrees with continuing current antibiotics now that she is being hospitalized. No h/o pseudomonas with current sputum culture pending. Level of illness is not serious, and she is not septic despite meeting SIRS criteria. Would not empirically cover for pseudomonas until the need arises from clinical deterioration or culture results. Solumedrol for wheezing and to help with poss RA flare. Neb treatments scheduled along with chest PT and flutter valve treatments. Appreciate pulm dispo recs in am. (3) Rheumatoid arthritis: Very difficult history of medication administration to gather as patient is a poor historian. She reports being told to stop her MTX one month ago, and since that time, has had significant pain. Her last PCP office note from her FP clinic in [place] says nothing about stopping MTX, however, it doesn't list her as being on it. She reports that her film touch up inspector in [place] was upset that she stopped it and encouraged her to restart it. However, there is no documentation of this conversation or instruction in the record. She declined her telehealth evaluation with Rheumatology and was scheduled for her first time visit with them in May of this year. For now, cont steroids until her medication issue can be more clearly understood. Will discuss with Rheumatology some recommendations for her. (4) Smoker: Advised to quit. Notes report nicoderm patches which she declines. She reports she would like to quit smoking but is planning to do this "cold turkey." (5) Depression: PCP note from 12/2019 reveals discontinuation of Buspar. She is taking amitrptiline 50 qHS and Lexapro 20mg PO qAM. (6) Chronic pain: has a h/o of narcotic use but now relies on gabapentin, tylenol (reports 500mg TID), Ibuprofen (reports 400mg TID) and is now also using Tramadol (reports 50mg BID). Cont supportive care. With myalgias, hold statin, check CK. (7) DVT prophylaxis: Lovenox Full code as discussed w patient on admission. Dispo -likely to home in 1-2 days. Of note, held off consulting PT/OT at this time pending COVID status, as they are nonessential and would like to minimize their exposure. Connie Baugh DO [facility] Hospitalist Admission and Anticipated Discharge Date Anticipated date of discharge: 02/04/20 History of Present Illness Chief Complaint: pain all over, worsening respiratory symptoms Primary Care Provider: Vanessa Malone 79 yo F smoker with active RA and known ILD with bronchiectasis presents for worsening pain and stiffness in her body throughout. She reports stopping her MTX one month ago because her physician told her to (there was no instruction for this on the last progress note, however, MTX was also not on the medication list). She also reports coughing with a change in sputum and dyspnea over the past week. She denies fevers or chills. she denies GI side effects. She reports some confusion. OVerall she is mentating clearly today but is a very poor historian. She also mentioned speaking with her film touch up inspector at [facility] who was "very upset" that she stopped her MTX. However, this conversation or instruction was not documented in the outpatient record. She continues to smoke 1 ppd. Denies ETOH use. Lives at home with her daughter. Allergies Allergy/AdvReac Type Severity Reaction Status Date / Time albuterol AdvReac Intermediate JITTERY Verified 02/02/20 12:04 FROM ALBUTEROL [facility] Home Medications Home Medications Medication Instructions Recorded Confirmed Type albuterol sulfate 2 puff INHALATION Q6H PRN 07/22/19 02/02/20 History amitriptyline 50 mg PO HS 07/22/19 02/02/20 History atorvastatin 20 mg PO DAILY 07/22/19 02/02/20 History escitalopram oxalate 20 mg PO QAM 07/22/19 02/02/20 History gabapentin 300 mg PO TID 07/22/19 02/02/20 History pantoprazole 20 mg PO DAILY 07/22/19 02/02/20 History tramadol 50 mg PO Q8H PRN 07/22/19 02/02/20 History [id number]-[id number]-jehyracz 1 inh INHALATION DAILY 02/02/20 02/02/20 History [Trelegy Ellipta] Past Med/Surg History Medical History Bronchiectasis Chronic pain CVA (cerebral infarction) (Acute) Depression Fibrotic lung diseases (Acute) History of COPD HTN (hypertension) (Acute) Hyperlipemia (Acute) Myocardial infarct (Acute) Pneumonia (Acute) Respiratory distress (Acute 04/22/14) Rheumatoid arthritis Smoker Surgical History H/O cardiac catheterization (Acute) S/P laminectomy Family History Father Black lung disease Social History Preferred Language: Bhutanese Communication Ability: Effective 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 Beliefs That Will Affect Care: None marital status: Current Living Situation: Family Current Living Situation Comment: pt lives with daughter Lawanda and daughter's boyfriend current occupational status: retired Other Information That Helps Us Care for You: No Feels Safe at Home: Yes Safety Concerns: Feels Safe At This Time Smoking Status: Current every day smoker Tobacco Type: cigarettes ; Do You Dip or Chew Tobacco: No ; Second Hand Exposure: Yes ; Tobacco Cessation Education Requested by Patient: Yes Hx Alcohol Use: No Hx Substance Use: No Review of Systems Review of Systems: All systems reviewed & are unremarkable except as noted in Subjective Physical Exam Physical Exam: CONSTITUTIONAL: thin, frail appearing, vitals as above, NAD EYES: EOMI bilaterally, PERRL, normal conjunctivae, no scleral icterus ENT: external ear and nose normal, oropharynx clear with dry mucous membranes, no maxillary or ethmoid sinus tenderness NECK: trachea midline, no lymphadenopathy RESPIRATORY: diffuse crackles and wheezes throughout with diminished breath sounds. normal respiratory effort, no conversational dyspnea at rest. CARDIOVASCULAR: regular rate and rhythm, S1 and 2 heard without murmurs, gallops or rubs, no JVD, no peripheral edema GASTROINTESTINAL: soft, nontender, nondistended MUSCULOSKELETAL: difficult to move 2/2 pain, arms and legs are stiff generally without gross focal deficit. Strength is 4/5 throughout. Pt cannot flex arms forward 2/2 pain. Joint exam: +warmth and swelling around MCP/PIP of left ring and middle finger. Wrists and other metacarpal joints not involved. No erythema. Restricted gripping motion with hands 2/2 pain. No shoulder joint TTP. Legs are generally stiff and weak with limited capability to flex. Passive ROM is notmal however, and no knee pain or effusion was noted. L ankles painfull to palpation without erythema, warmth or swelling. Nails unkempt throughout. SKIN: warm and dry NEUROLOGIC: patellar DTRs 2+ bilat. PERRL, EOMI, no facial palsy, no dysarthria. CN 2-12 grossly intact, no sensory deficit, normal cognition, normal speech PSYCHIATRIC: alert cooperative and oriented to person, place and time. Results & Data Results & Data ([facility]) Vital Signs (Past 12 Hours) Vital Signs Temp Pulse Resp BP Pulse Ox 02/02/20 14:00 98 H 24 154/77 H 95 02/02/20 12:30 97 H 24 147/87 H 95 02/02/20 12:03 98 H 96 02/02/20 12:00 97 H 22 136/80 95 02/02/20 11:48 98 02/02/20 11:41 97 H 21 93 02/02/20 11:38 37.2 C 99 H 24 153/90 H 85 L 02/02/20 11:33 97 H 21 153/90 H Laboratory Results Short CBC 02/02/20 02/02/20 02/02/20 Range/Units 11:57 11:57 11:57 WBC 12.70 H (4.8-10.8) K/uL RBC 4.38 (4.2-5.4) M/uL Hgb 11.9 L (12.0-16.0) g/dL Hct 38.2 (37-47) % MCV 87.2 (80-100) fL MCH 27.2 (25-34) pg MCHC 31.2 L (32-36) g/dL RDW Std Deviation 59.2 H (36.4-46.3) fL RDW Coeff of Jose Manuel 18.6 H (11.5-14.5) % Plt Count 335 (130-400) K/uL MPV 9.5 (7.4-10.4) fL Immature Gran % (Auto) 0.3 % Neut % (Auto) 78.3 % Lymph % (Auto) 13.2 % [place] % (Auto) 7.8 % Eos % (Auto) 0.2 % Baso % (Auto) 0.2 % Immature Gran # (Auto) 0.04 H (0.00-0.02) K/uL Neut # (Auto) 9.94 H (1.4-6.5) K/uL Lymph # (Auto) 1.68 (1.2-3.4) K/uL [place] # (Auto) 0.99 H (0.11-0.59) K/uL Eos # (Auto) 0.02 (0-0.5) K/uL Baso # (Auto) 0.03 (0-0.2) K/uL PT 11.9 (9.0-12.0) Seconds INR 1.1 (0.9-1.1) VBG pH (7.36-7.41) VBG pCO2 (38-50) mmHg VBG pO2 mmHg VBG HCO3 mmol/L VBG O2 Saturation % VBG Base Excess mEq/L Barometric Pressure mm/Hg Sodium 135 L (136-145) mmol/L Potassium 3.9 (3.5-5.1) mmol/L Chloride 105 (98-107) mmol/L Carbon Dioxide 25 (21-32) mmol/L Anion Gap 6.0 (3-11) BUN 12 (7-18) mg/dl Creatinine 0.58 L (0.6-1.2) mg/dl Est Cr Clr Drug Dosing 61.3 ml/min Est GFR ( Amer) 103.0 Est GFR (Non-Af Amer) 88.9 BUN/Creatinine Ratio 19.8 (10-20) Glucose 93 (70-99) mg/dl Lactate (0.4-2.0) mmol/L Calcium 8.3 L (8.5-10.1) mg/dl Magnesium 1.9 (1.8-2.4) mg/dl Total Bilirubin 0.3 (0.2-1) mg/dl AST 21 (15-37) U/L ALT 22 (12-78) U/L Alkaline Phosphatase 153 H (45-117) U/L Ammonia (11-32) umol/L Troponin I 0.016 (0-0.045) ng/ml Total Protein 7.9 (6.4-8.2) gm/dl Albumin 2.4 L (3.4-5.0) gm/dl Globulin 5.5 H (2.5-4.0) gm/dl Albumin/Globulin Ratio 0.4 L (0.9-2) Procalcitonin (0-0.5) ng/ml TSH 0.619 (0.300-4.500) uIu/ml Urine Color Urine Appearance (Clear) Urine pH (4.5-7.5) Ur Specific [place] (1.000-1.030) Urine Protein (Negative) Urine Glucose (UA) (Negative) Urine Ketones (Negative) Urine Blood (Negative) Urine Nitrite (Negative) Urine Bilirubin (Negative) Urine Urobilinogen (Negative) Ur Leukocyte Esterase (Negative) 02/02/20 02/02/20 02/02/20 Range/Units 11:57 11:57 11:57 WBC (4.8-10.8) K/uL RBC (4.2-5.4) M/uL Hgb (12.0-16.0) g/dL Hct (37-47) % MCV (80-100) fL MCH (25-34) pg MCHC (32-36) g/dL RDW Std Deviation (36.4-46.3) fL RDW Coeff of Jose Manuel (11.5-14.5) % Plt Count (130-400) K/uL MPV (7.4-10.4) fL Immature Gran % (Auto) % Neut % (Auto) % Lymph % (Auto) % [place] % (Auto) % Eos % (Auto) % Baso % (Auto) % Immature Gran # (Auto) (0.00-0.02) K/uL Neut # (Auto) (1.4-6.5) K/uL Lymph # (Auto) (1.2-3.4) K/uL [place] # (Auto) (0.11-0.59) K/uL Eos # (Auto) (0-0.5) K/uL Baso # (Auto) (0-0.2) K/uL PT (9.0-12.0) Seconds INR (0.9-1.1) VBG pH 7.37 (7.36-7.41) VBG pCO2 41 (38-50) mmHg VBG pO2 51 mmHg VBG HCO3 23 mmol/L VBG O2 Saturation 82.6 % VBG Base Excess -2.1 mEq/L Barometric Pressure 719.9 mm/Hg Sodium (136-145) mmol/L Potassium (3.5-5.1) mmol/L Chloride (98-107) mmol/L Carbon Dioxide (21-32) mmol/L Anion Gap (3-11) BUN (7-18) mg/dl Creatinine (0.6-1.2) mg/dl Est Cr Clr Drug Dosing ml/min Est GFR ( Amer) Est GFR (Non-Af Amer) BUN/Creatinine Ratio (10-20) Glucose (70-99) mg/dl Lactate 1.1 (0.4-2.0) mmol/L Calcium (8.5-10.1) mg/dl Magnesium (1.8-2.4) mg/dl Total Bilirubin (0.2-1) mg/dl AST (15-37) U/L ALT (12-78) U/L Alkaline Phosphatase (45-117) U/L Ammonia 25.5 (11-32) umol/L Troponin I (0-0.045) ng/ml Total Protein (6.4-8.2) gm/dl Albumin (3.4-5.0) gm/dl Globulin (2.5-4.0) gm/dl Albumin/Globulin Ratio (0.9-2) Procalcitonin (0-0.5) ng/ml TSH (0.300-4.500) uIu/ml Urine Color Urine Appearance (Clear) Urine pH (4.5-7.5) Ur Specific [place] (1.000-1.030) Urine Protein (Negative) Urine Glucose (UA) (Negative) Urine Ketones (Negative) Urine Blood (Negative) Urine Nitrite (Negative) Urine Bilirubin (Negative) Urine Urobilinogen (Negative) Ur Leukocyte Esterase (Negative) 02/02/20 02/02/20 Range/Units 11:57 14:00 WBC (4.8-10.8) K/uL RBC (4.2-5.4) M/uL Hgb (12.0-16.0) g/dL Hct (37-47) % MCV (80-100) fL MCH (25-34) pg MCHC (32-36) g/dL RDW Std Deviation (36.4-46.3) fL RDW Coeff of Jose Manuel (11.5-14.5) % Plt Count (130-400) K/uL MPV (7.4-10.4) fL Immature Gran % (Auto) % Neut % (Auto) % Lymph % (Auto) % [place] % (Auto) % Eos % (Auto) % Baso % (Auto) % Immature Gran # (Auto) (0.00-0.02) K/uL Neut # (Auto) (1.4-6.5) K/uL Lymph # (Auto) (1.2-3.4) K/uL [place] # (Auto) (0.11-0.59) K/uL Eos # (Auto) (0-0.5) K/uL Baso # (Auto) (0-0.2) K/uL PT (9.0-12.0) Seconds INR (0.9-1.1) VBG pH (7.36-7.41) VBG pCO2 (38-50) mmHg VBG pO2 mmHg VBG HCO3 mmol/L VBG O2 Saturation % VBG Base Excess mEq/L Barometric Pressure mm/Hg Sodium (136-145) mmol/L Potassium (3.5-5.1) mmol/L Chloride (98-107) mmol/L Carbon Dioxide (21-32) mmol/L Anion Gap (3-11) BUN (7-18) mg/dl Creatinine (0.6-1.2) mg/dl Est Cr Clr Drug Dosing ml/min Est GFR ( Amer) Est GFR (Non-Af Amer) BUN/Creatinine Ratio (10-20) Glucose (70-99) mg/dl Lactate (0.4-2.0) mmol/L Calcium (8.5-10.1) mg/dl Magnesium (1.8-2.4) mg/dl Total Bilirubin (0.2-1) mg/dl AST (15-37) U/L ALT (12-78) U/L Alkaline Phosphatase (45-117) U/L Ammonia (11-32) umol/L Troponin I (0-0.045) ng/ml Total Protein (6.4-8.2) gm/dl Albumin (3.4-5.0) gm/dl Globulin (2.5-4.0) gm/dl Albumin/Globulin Ratio (0.9-2) Procalcitonin 0.12 (0-0.5) ng/ml TSH (0.300-4.500) uIu/ml Urine Color Yellow Urine Appearance Clear (Clear) Urine pH 5.5 (4.5-7.5) Ur Specific [place] > 1.045 H (1.000-1.030) Urine Protein Negative (Negative) Urine Glucose (UA) Negative (Negative) Urine Ketones 1+ H (Negative) Urine Blood Negative (Negative) Urine Nitrite Negative (Negative) Urine Bilirubin Negative (Negative) Urine Urobilinogen Negative (Negative) Ur Leukocyte Esterase Negative (Negative) BMP 02/02/20 11:57 Sodium 135 L Potassium 3.9 Chloride 105 Carbon Dioxide 25 BUN 12 Creatinine 0.58 L Glucose 93 Calcium 8.3 L Cardiac Enzymes 02/02/20 Range/Units 11:57 Troponin I 0.016 (0-0.045) ng/ml Liver Function 02/02/20 Range/Units 11:57 Total Bilirubin 0.3 (0.2-1) mg/dl AST 21 (15-37) U/L ALT 22 (12-78) U/L Alkaline Phosphatase 153 H (45-117) U/L Albumin 2.4 L (3.4-5.0) gm/dl Urine 02/02/20 Range/Units 14:00 Urine Color Yellow Urine Appearance Clear (Clear) Urine pH 5.5 (4.5-7.5) Ur Specific [place] > 1.045 H (1.000-1.030) Urine Protein Negative (Negative) Urine Glucose (UA) Negative (Negative) Diagnostic Findings CT ANGIOGRAPHY OF THE CHEST, PULMONARY EMBOLUS PROTOCOL CLINICAL HISTORY: Shortness of breath. Evaluate for pulmonary embolus. FINDINGS: This exam is compromised by motion artifact. No pulmonary emboli are identified. There is no thoracic aortic dissection. Note is made of moderate cardiomegaly. There is no pericardial effusion. Prominent thoracic lymph nodes have decreased in size since CT of July 22, 2019. There is no pneumothorax or pleural effusion. Lungs are suboptimally assessed given respiratory motion. Note is made of extensive interstitial lung disease with reticulation, groundglass opacities and traction bronchiectasis. No superimposed consolidation is present. There may be mild superimposed groundglass opacity. No cavitation is present. The abdomen and pelvis will be reported separately. IMPRESSION: 1. No pulmonary emboli identified although segmental and subsegmental pulmonary arteries suboptimally assessed given respiratory motion. 2. Findings consistent with interstitial lung disease with pulmonary fibrosis. No superimposed consolidation. Mild groundglass opacity may reflect a mild superimposed infectious process, pulmonary edema or active alveolitis. 3. Cardiomegaly. CT abd pelvis IV con only HISTORY: Chest pain. Dyspnea. diarrhea, weak, difuse pain COMPARISON STUDY: None. FINDINGS: Lung bases show diffuse bilateral parenchymal infiltrative/fibrotic change. Bulk of these findings appear to be chronic based on the chest series of 07/26/2019. Liver and spleen appear uniform. There is biliary ductal prominence presumably a postoperative basis. Pancreas is atrophied. Kidneys demonstrate several small subcentimeter cortical cyst but are negative for hydronephrosis. The bowel pattern overall is nonobstructive. Bladder is mildly distended. There are bilateral hip prosthetics. There is considerable degenerative change of the low thoracic as well as lumbar spine. IMPRESSION:: 1. Diffuse bibasilar parenchymal fibrosis the bulk of which is most likely chronic. 2. Chronic and age-related findings of the abdomen and pelvis with no acute process. CT head/brain wo con HISTORY: Weakness. Confusion. weakness, confusion Comparison: None. Findings: The paranasal sinuses and mastoid air cells are clear. The calvarium and skull base are intact. The ventricles and sulci are within normal limits. There is no mass, hematoma, midline shift, or acute infarct. Considerable chronic small vessel change. Impression: No acute intracranial abnormality. Considerable age-related chronic small vessel change. XR chest 1V portable CLINICAL HISTORY: weakness dyspnea FINDINGS: Diffuse bilateral parenchymal fibrotic change. This is improved compared to the prior study. No significant cardiac enlargement. IMPRESSION: Diffuse parenchymal fibrotic change throughout both hemithoraces. The bulk of this appears to be chronic and moderately improved from the prior exam. Medications Administered Solumedrol 60mg IV Code Status & VTE Plan Code Status Full VTE Prophylaxis Plan VTE Prophylaxis will be ordered: Yes
[2020-02-02 15:35] LABS: Influenza A virus by PCR Neg for Influ A (Neg); Influenza B virus by PCR Neg for Influ B (Neg)
[2020-02-02] MEDS ORDERED: POLYETHYLENE (MIRALAX) 17 GM PACK PO PRN (16:13)
[2020-02-02] MEDS ORDERED: ACETAMINOPHEN 325 MG TAB PO PRN (16:13)
[2020-02-02] MEDS ORDERED: ONDANSETRON INJ 2 MG/ML 2 ML VIAL IV PRN (16:13)
[2020-02-02] MEDS ORDERED: ALBUT/IPRATROP 3MG/0.5MG NEB 3 ML VIAL NEB PRN (16:34)
[2020-02-02] MEDS ORDERED: ACETAMINOPHEN 500 MG TAB PO SCH (16:45)
[2020-02-02 18:20] LABS: C Reactive Protein 13.3 mg/dl (0-0.29)
[2020-02-02] MEDS: ALBUT/IPRATROP 3MG/0.5MG NEB 3 ML VIAL NEB SCH (20:10)
[2020-02-02] MEDS: TRAMADOL HCL 50 MG TABLET PO PRN (21:18)
[2020-02-02] MEDS: ENOXAPARIN INJ 30 MG/0.3 ML SYR SQ SCH (21:19)
[2020-02-02] MEDS: DOXYCYCLINE HYCLATE 100 MG CAP PO SCH (21:19)
[2020-02-02] MEDS: methylPREDNISolone 40 MG in SYRINGE 0 ML IV SCH (21:28)
[2020-02-02] MEDS: GABAPENTIN 300 MG CAP PO SCH (21:29)
[2020-02-02] MEDS: AMITRIPTYLINE HCL 50 MG TAB PO SCH (21:29)
[2020-02-03] MEDS ORDERED: ACETAMINOPHEN 500 MG TAB PO SCH
[2020-02-03] MEDS: methylPREDNISolone 40 MG in SYRINGE 0 ML IV SCH ×3 (03:28→13:42)
[2020-02-03] MEDS: ALBUT/IPRATROP 3MG/0.5MG NEB 3 ML VIAL NEB SCH ×3 (06:47→15:35)
[2020-02-03 07:20] LABS: Hematocrit (blood only) 37.6 % (37-47); Mean Corpuscular Hemoglobin 27.6 pg (25-34); Mean Corpuscular Hgb Conc 31.9 g/dL (32-36); Mean Corpuscular Volume 86.6 fL (80-100); Platelet Count 335 K/uL (130-400); RDW Coefficient of Variation 18.4 % (11.5-14.5); RDW Standard Deviation 58.4 fL (36.4-46.3); Red Blood Count 4.34 M/uL (4.2-5.4); White Blood Count 7.85 K/uL (4.8-10.8)
[2020-02-03 07:54] LABS: BUN Creatinine Ratio 32.8 (10-20); C Reactive Protein 11.8 mg/dl (0-0.29); Creatinine Clr Calc Pharmacy 50.1 ml/min; Est GFR (African American) 95.2; Est GFR (Non-African American) 82.2; Magnesium 2.3 mg/dl (1.8-2.4)
[2020-02-03] MEDS: GABAPENTIN 300 MG CAP PO SCH ×3 (08:02→19:22)
[2020-02-03] MEDS: PANTOprazole 40 MG TAB PO SCH (08:02)
[2020-02-03] MEDS: DOXYCYCLINE HYCLATE 100 MG CAP PO SCH (08:03)
[2020-02-03] MEDS: ESCITALOPRAM OXALATE 20 MG TAB PO SCH (08:03)
[2020-02-03] MEDS: TRAMADOL HCL 50 MG TABLET PO PRN (08:10)
--- NOTE | 2020-02-03 11:22 | Hospitalist Progress Note ---
Date of Service February 03, 2020 Assessment & Plan Admission and Anticipated Discharge Date Admission Date: February 02, 2020 79 year old female with history of CAD, CVA, HTN, HLD, RA, Chronic Pain Syndrome, Tobacco Use, presenting with Hypoxia. (1) ACUTE HYPOXIC RESPIRATORY FAILURE POSSIBLE EXACERBATION OF UNDERLYING INTERSTITIAL LUNG DISEASE, COPD CT chest: 1. No pulmonary emboli identified although segmental and subsegmental pulmonary arteries suboptimally assessed given respiratory motion. 2. Findings consistent with interstitial lung disease with pulmonary fibrosis. No superimposed consolidation. Mild groundglass opacity may reflect a mild s uperimposed infectious process, pulmonary edema or active alveolitis. 3. Cardiomegaly. Blood culture: pending Sputum culture: pending collection Covid test: pending improving clinically, weaned off oxygen continue Ceftri + Doxy, Solumedrol 40mg q6h, Albuterol scheduled Pulmonary consulted (2) INTERSTITIAL LUNG DISEASE management as noted above (3) Rheumatoid arthritis: usually on Methotrexate, Gabapentin--> managed by PCP apparently PCP discontinued Methotrexate, and currently managed on Tramadol continue Solumedrol 40mg q6h per [employer] Dr. Luna, will need to be at least on Prednisone 10mg po daily until seen at the Rheumatology clinic will add [place] PRN for pain (4) Smoker: Per admitting MD: Advised to quit. Notes report nicoderm patches which she declines. She reports she would like to quit smoking but is planning to do this "cold turkey." (5) Depression: Per admitting MD: PCP note from 12/2019 reveals discontinuation of Buspar. She is taking amitrptiline 50 qHS and Lexapro 20mg PO qAM. (6) Chronic pain: has a h/o of narcotic use but now relies on gabapentin, tylenol (reports 500mg TID), Ibuprofen (reports 400mg TID) and is now also using Tramadol (reports 50mg BID). Cont supportive care. CK 36- normal (7) DVT prophylaxis: Lovenox Full code as discussed w patient on admission. Disposition anticipate d/c home when medically stable ff up with PCP, Manager Sign, [employer] Connie Baugh DO [facility] Hospitalist Anticipated date of discharge: 02/04/20 Subjective ff up for diffuse arthralgias, cough seen sitting up in bed, not in distress pleasant but seems uncomfortable states diffuse arthralgias, mostly posterior neck, bilateral arms, and knees - about the same as yesterday denies fever/chills cough is less, no sputum, no SOB denies other symptoms Review of Systems Review of Systems: All systems reviewed & are unremarkable except as noted in HPI & below Physical Exam Physical Exam: General- oriented x 3, not in distress, speaks in sentences with no effort or accessory muscle use Head- atraumatic Eyes- PERRL, EOMI, anicteric ENT- oropharynx clear Neck- supple, no JVD, no adenopathy, no thyromegaly; carotids +2/2, no bruits appreciated Lungs-mild crackles at the bases, no wheezing good air entry bilaterally Heart- normal rate, regular rhythm; no murmur, no gallop, no rub appreciated Abdomen- normal bowel sounds, nondistended, soft, nontender, no masses or hepatosplenomegaly Extremities- (+) moderate edema, mild warmth on BL MCP and PIP, BL knees trace edema R>L Neuro- alert, oriented x 3; CN 2-12 grossly intact; motor 5/5 bilaterally;sensation 100% on all extremities; no other gross focal neurologic deficits Skin- warm & dry Results & Data Results & Data ([facility]) Vital Signs (Past 12 Hours) Vital Signs Temp Pulse Pulse Resp BP Pulse Ox 02/03/20 07:45 67 02/03/20 07:43 36.4 C L 85 18 110/67 93 02/03/20 06:47 69 16 95 02/03/20 03:29 36.5 C 72 20 106/67 93 02/02/20 23:55 36.7 C 83 18 104/66 95 Laboratory Results Laboratory Results - last 24 hr 02/02/20 02/02/20 02/02/20 11:57 11:57 11:57 WBC 12.70 H RBC 4.38 Hgb 11.9 L Hct 38.2 MCV 87.2 MCH 27.2 MCHC 31.2 L RDW Std Deviation 59.2 H RDW Coeff of Jose Manuel 18.6 H Plt Count 335 MPV 9.5 Immature Gran % (Auto) 0.3 Neut % (Auto) 78.3 Lymph % (Auto) 13.2 [place] % (Auto) 7.8 Eos % (Auto) 0.2 Baso % (Auto) 0.2 Immature Gran # (Auto) 0.04 H Neut # (Auto) 9.94 H Lymph # (Auto) 1.68 [place] # (Auto) 0.99 H Eos # (Auto) 0.02 Baso # (Auto) 0.03 ESR PT 11.9 INR 1.1 VBG pH VBG pCO2 VBG pO2 VBG HCO3 VBG O2 Saturation VBG Base Excess Barometric Pressure Sodium 135 L Potassium 3.9 Chloride 105 Carbon Dioxide 25 Anion Gap 6.0 BUN 12 Creatinine 0.58 L Est Cr Clr Drug Dosing 61.3 Est GFR ( Amer) 103.0 Est GFR (Non-Af Amer) 88.9 BUN/Creatinine Ratio 19.8 Glucose 93 Lactate Calcium 8.3 L Magnesium 1.9 Total Bilirubin 0.3 AST 21 ALT 22 Alkaline Phosphatase 153 H Ammonia Total Creatine Kinase Troponin I 0.016 C-Reactive Protein Total Protein 7.9 Albumin 2.4 L Globulin 5.5 H Albumin/Globulin Ratio 0.4 L Procalcitonin TSH 0.619 Urine Color Urine Appearance Urine pH Ur Specific [place] Urine Protein Urine Glucose (UA) Urine Ketones Urine Blood Urine Nitrite Urine Bilirubin Urine Urobilinogen Ur Leukocyte Esterase Hepatitis C Ab Screen Influenza Type A (PCR) Influenza Type B (PCR) SARS-CoV-2 RNA (RT-PCR) 02/02/20 02/02/20 02/02/20 11:57 11:57 11:57 WBC RBC Hgb Hct MCV MCH MCHC RDW Std Deviation RDW Coeff of Jose Manuel Plt Count MPV Immature Gran % (Auto) Neut % (Auto) Lymph % (Auto) [place] % (Auto) Eos % (Auto) Baso % (Auto) Immature Gran # (Auto) Neut # (Auto) Lymph # (Auto) [place] # (Auto) Eos # (Auto) Baso # (Auto) ESR PT INR VBG pH 7.37 VBG pCO2 41 VBG pO2 51 VBG HCO3 23 VBG O2 Saturation 82.6 VBG Base Excess -2.1 Barometric Pressure 719.9 Sodium Potassium Chloride Carbon Dioxide Anion Gap BUN Creatinine Est Cr Clr Drug Dosing Est GFR ( Amer) Est GFR (Non-Af Amer) BUN/Creatinine Ratio Glucose Lactate 1.1 Calcium Magnesium Total Bilirubin AST ALT Alkaline Phosphatase Ammonia 25.5 Total Creatine Kinase Troponin I C-Reactive Protein Total Protein Albumin Globulin Albumin/Globulin Ratio Procalcitonin TSH Urine Color Urine Appearance Urine pH Ur Specific [place] Urine Protein Urine Glucose (UA) Urine Ketones Urine Blood Urine Nitrite Urine Bilirubin Urine Urobilinogen Ur Leukocyte Esterase Hepatitis C Ab Screen Influenza Type A (PCR) Influenza Type B (PCR) SARS-CoV-2 RNA (RT-PCR) 02/02/20 02/02/20 02/02/20 11:57 11:57 14:00 WBC RBC Hgb Hct MCV MCH MCHC RDW Std Deviation RDW Coeff of Jose Manuel Plt Count MPV Immature Gran % (Auto) Neut % (Auto) Lymph % (Auto) [place] % (Auto) Eos % (Auto) Baso % (Auto) Immature Gran # (Auto) Neut # (Auto) Lymph # (Auto) [place] # (Auto) Eos # (Auto) Baso # (Auto) ESR PT INR VBG pH VBG pCO2 VBG pO2 VBG HCO3 VBG O2 Saturation VBG Base Excess Barometric Pressure Sodium Potassium Chloride Carbon Dioxide Anion Gap BUN Creatinine Est Cr Clr Drug Dosing Est GFR ( Amer) Est GFR (Non-Af Amer) BUN/Creatinine Ratio Glucose Lactate Calcium Magnesium Total Bilirubin AST ALT Alkaline Phosphatase Ammonia Total Creatine Kinase Troponin I C-Reactive Protein Total Protein Albumin Globulin Albumin/Globulin Ratio Procalcitonin 0.12 TSH Urine Color Yellow Urine Appearance Clear Urine pH 5.5 Ur Specific [place] > 1.045 H Urine Protein Negative Urine Glucose (UA) Negative Urine Ketones 1+ H Urine Blood Negative Urine Nitrite Negative Urine Bilirubin Negative Urine Urobilinogen Negative Ur Leukocyte Esterase Negative Hepatitis C Ab Screen Neg Influenza Type A (PCR) Influenza Type B (PCR) SARS-CoV-2 RNA (RT-PCR) 02/02/20 02/02/20 02/02/20 14:45 14:45 17:54 WBC RBC Hgb Hct MCV MCH MCHC RDW Std Deviation RDW Coeff of Jose Manuel Plt Count MPV Immature Gran % (Auto) Neut % (Auto) Lymph % (Auto) [place] % (Auto) Eos % (Auto) Baso % (Auto) Immature Gran # (Auto) Neut # (Auto) Lymph # (Auto) [place] # (Auto) Eos # (Auto) Baso # (Auto) ESR > 90 H PT INR VBG pH VBG pCO2 VBG pO2 VBG HCO3 VBG O2 Saturation VBG Base Excess Barometric Pressure Sodium Potassium Chloride Carbon Dioxide Anion Gap BUN Creatinine Est Cr Clr Drug Dosing Est GFR ( Amer) Est GFR (Non-Af Amer) BUN/Creatinine Ratio Glucose Lactate Calcium Magnesium Total Bilirubin AST ALT Alkaline Phosphatase Ammonia Total Creatine Kinase Troponin I C-Reactive Protein Total Protein Albumin Globulin Albumin/Globulin Ratio Procalcitonin TSH Urine Color Urine Appearance Urine pH Ur Specific [place] Urine Protein Urine Glucose (UA) Urine Ketones Urine Blood Urine Nitrite Urine Bilirubin Urine Urobilinogen Ur Leukocyte Esterase Hepatitis C Ab Screen Influenza Type A (PCR) Neg for Influ A Influenza Type B (PCR) Neg for Influ B SARS-CoV-2 RNA (RT-PCR) Pending 02/02/20 02/03/20 02/03/20 17:54 07:08 07:08 WBC 7.85 RBC 4.34 Hgb 12.0 Hct 37.6 MCV 86.6 MCH 27.6 MCHC 31.9 L RDW Std Deviation 58.4 H RDW Coeff of Jose Manuel 18.4 H Plt Count 335 MPV 10.0 Immature Gran % (Auto) Neut % (Auto) Lymph % (Auto) [place] % (Auto) Eos % (Auto) Baso % (Auto) Immature Gran # (Auto) Neut # (Auto) Lymph # (Auto) [place] # (Auto) Eos # (Auto) Baso # (Auto) ESR > 90 H PT INR VBG pH VBG pCO2 VBG pO2 VBG HCO3 VBG O2 Saturation VBG Base Excess Barometric Pressure Sodium Potassium Chloride Carbon Dioxide Anion Gap BUN Creatinine Est Cr Clr Drug Dosing Est GFR ( Amer) Est GFR (Non-Af Amer) BUN/Creatinine Ratio Glucose Lactate Calcium Magnesium Total Bilirubin AST ALT Alkaline Phosphatase Ammonia Total Creatine Kinase 36 Troponin I C-Reactive Protein 13.30 H Total Protein Albumin Globulin Albumin/Globulin Ratio Procalcitonin TSH Urine Color Urine Appearance Urine pH Ur Specific [place] Urine Protein Urine Glucose (UA) Urine Ketones Urine Blood Urine Nitrite Urine Bilirubin Urine Urobilinogen Ur Leukocyte Esterase Hepatitis C Ab Screen Influenza Type A (PCR) Influenza Type B (PCR) SARS-CoV-2 RNA (RT-PCR) 02/03/20 07:08 WBC RBC Hgb Hct MCV MCH MCHC RDW Std Deviation RDW Coeff of Jose Manuel Plt Count MPV Immature Gran % (Auto) Neut % (Auto) Lymph % (Auto) [place] % (Auto) Eos % (Auto) Baso % (Auto) Immature Gran # (Auto) Neut # (Auto) Lymph # (Auto) [place] # (Auto) Eos # (Auto) Baso # (Auto) ESR PT INR VBG pH VBG pCO2 VBG pO2 VBG HCO3 VBG O2 Saturation VBG Base Excess Barometric Pressure Sodium 136 Potassium 4.0 Chloride 105 Carbon Dioxide 29 Anion Gap 2.0 L BUN 23 H D Creatinine 0.71 Est Cr Clr Drug Dosing 50.1 Est GFR ( Amer) 95.2 Est GFR (Non-Af Amer) 82.2 BUN/Creatinine Ratio 32.8 H Glucose 161 H Lactate Calcium 9.0 Magnesium 2.3 Total Bilirubin AST ALT Alkaline Phosphatase Ammonia Total Creatine Kinase Troponin I C-Reactive Protein 11.80 H Total Protein Albumin Globulin Albumin/Globulin Ratio Procalcitonin TSH Urine Color Urine Appearance Urine pH Ur Specific [place] Urine Protein Urine Glucose (UA) Urine Ketones Urine Blood Urine Nitrite Urine Bilirubin Urine Urobilinogen Ur Leukocyte Esterase Hepatitis C Ab Screen Influenza Type A (PCR) Influenza Type B (PCR) SARS-CoV-2 RNA (RT-PCR)
[2020-02-03] MEDS ORDERED: cefTRIAXone SODIUM 1,000 MG in DEXTROSE 5% 50 ML IV SCH (12:00)
[2020-02-03] MEDS: HYDROCODONE/ACETAMOPHEN 5/325MG TAB PO PRN (13:41)
--- NOTE | 2020-02-03 14:38 | Pulmonary Consultation ---
Date of Consultation February 03, 2020 Assessment & Plan (1) Interstitial lung disease: This patient is well-known to the pulmonary service from her prior admission July 2019. 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 Her lung disease is very advanced at this point and biopsy would likely be of little value since it would not change the treatment. She is not a candidate for lung transplant. She continues to smoke heavily upwards of 1 pack/day. She does have baseline hypoxemia and should be discharged with oxygen. 2 step would need to be completed in order for her to qualify for home oxygen. She does not appear to be in an acute flare of her interstitial lung disease or associated traction bronchiectasis. I do not think that she needs antibiotics or steroids from a pulmonary perspective. She should follow-up with her outpatient textile engineer and mounter [employer]. I do think that her insight to her disease process is very poor and she does lack medical literacy. She unfortunately is at risk for future readmission. Recommend cont inuing her Trelegy inhaler as an outpatient along with a low-dose of prednisone as recommended by her mounter [employer]. Thank you for allowing us to partake in the care of this patient. Please call us with questions. (2) Smoker: (3) Bronchiectasis: (4) Abnormal CT scan, chest: (5) Chronic hypoxemic respiratory failure: History of Present Illness Reason for Consultation: Interstitial lung disease Requesting Physician: Connie Baugh Attending Physician: Cal Mi MD History of Present Illness 79-year-old female with a past medical history of rheumatoid arthritis and rheumatoid associated interstitial lung disease, chronic hypoxemic respiratory failure, tobacco abuse disorder and restrictive lung disease who presented to the hospital due to pain in her legs and trouble walking. She is brought in by ambulance. Patient is known to the pulmonary service from prior hospital admission in July 2019 where she was seen by both me and Dr. Stevens. In short, she has been on a number of different immune modulating regimens for her rheumatoid arthritis including methotrexate, mycophenolate and prednisone. Apparently in August 2014 she had a spirometry that was performed which demonstrated a restrictive pattern with an FEV1 of 55% predicted and FVC of 49% predicted. Interstitial changes noted since 2013. She had a serological evaluation in July that was largely negative aside for an elevated anti-CCP. It seems that she is supposed to have a follow-up visit with Dr. Luna of [facility] rheumatology at some point. Essentially during this hospitalization, she has minimal respiratory symptoms. She denied any significant change in her cough or shortness of breath. During the last hospitalization, we had recommended that the patient be discharged on home oxygen, however, does not appear the patient was discharged on home oxygen. She had a CT of her chest performed yesterday demonstrated chronic peribronchial vascular thickening, traction bronchiectasis and fibrotic changes diffusely upon my interpretation. There are some mild areas of groundglass opacification which are minimal. She was started on Solu-Medrol and Rocephin. Patient herself is a very poor historian and does not give a reliable medical history. She does note that she has smoked for many years and has been smoking upwards of 1 pack/day lately. She is being ruled out for COVID-19. She has not had any sick contacts or COVID 19 contacts. She has been afebrile. Procalcitonin was 0.12 yesterday. Allergies Allergy/AdvReac Type Severity Reaction Status Date / Time albuterol AdvReac Intermediate JITTERY Verified 02/02/20 12:04 FROM ALBUTEROL [facility] Home Medications Home Medications Medication Instructions Recorded Confirmed Type albuterol sulfate 2 puff INHALATION Q6H PRN 07/22/19 02/02/20 History amitriptyline 50 mg PO HS 07/22/19 02/02/20 History atorvastatin 20 mg PO DAILY 07/22/19 02/02/20 History escitalopram oxalate 20 mg PO QAM 07/22/19 02/02/20 History gabapentin 300 mg PO TID 07/22/19 02/02/20 History pantoprazole 20 mg PO DAILY 07/22/19 02/02/20 History tramadol 50 mg PO Q8H PRN 07/22/19 02/02/20 History [id number]-[id number] 1 inh INHALATION DAILY 02/02/20 02/02/20 History [Trelegy Ellipta] Patient History Medical History Bronchiectasis Chronic pain CVA (cerebral infarction) (Acute) Depression Fibrotic lung diseases (Acute) History of COPD HTN (hypertension) (Acute) Hyperlipemia (Acute) Myocardial infarct (Acute) Pneumonia (Acute) Respiratory distress (Acute 04/22/14) Rheumatoid arthritis Smoker Surgical History H/O cardiac catheterization (Acute) S/P laminectomy Family History Father Black lung disease Social History Preferred Language: Nepali Communication Ability: Effective Plate Preparer Required: No Beliefs That Will Affect Care: None marital status: Unknown Current Living Situation: Family Current Living Situation Comment: pt lives with daughter Lawanda and daughter's boyfriend current occupational status: retired Other Information That Helps Us Care for You: No Feels Safe at Home: Yes Safety Concerns: Feels Safe At This Time Smoking Status: Current every day smoker Tobacco Type: cigarettes ; Do You Dip or Chew Tobacco: No ; Second Hand Exposure: Yes ; Tobacco Cessation Education Requested by Patient: Yes Hx Alcohol Use: No Hx Substance Use: No Review of Systems Review of Systems: All systems reviewed & are unremarkable except as noted in HPI & below Physical Exam Constitutional: WD/WN, vitals as above Thin and frail-appearing. Elderly. Tremulous. Eyes: PERRL, conjunctivae normal, anicteric sclerae ENMT: external ear and nose normal, oropharynx normal Neck: normal visual inspection Respiratory: Diffuse crackles bilaterally on both inspiration and expiration. No obvious wheezing. No tachypnea. No conversational dyspnea noted. Cardiovascular: RRR, no murmur, no edema Gastrointestinal (Abdomen): normal bowel sounds, soft, nontender, no hepatosplenomegaly Musculoskeletal: Bilateral hand deformities noted with ulnar deviation. MCP joints are swollen. Bilateral surgical scars noted on her knees. Knees appear boggy and swollen. Minimal range of motion with crepitus present. Tenderness on her shins noted. Minimal edema. Skin: no rashes, warm and dry Neurologic: PERRL, EOMI, accommodation nl, no face palsy, no dysarthria Psychiatric: Judgment is fair to poor. Alert and oriented. She appears a bit lonely. Results & Data Results & Data ([facility]) Vital Signs (Past 12 Hours) Vital Signs Temp Pulse Pulse Resp BP Pulse Ox 02/03/20 12:41 98.8 F 108 H 18 110/64 90 02/03/20 11:23 92 H 18 93 02/03/20 07:45 67 02/03/20 07:43 97.5 F L 85 18 110/67 93 02/03/20 06:47 69 16 95 02/03/20 03:29 97.7 F 72 20 106/67 93 I personally reviewed her prior chest imaging, labs and previous notes PG Care Time/CCT Total # of Minutes Spent Total Time Spent with Patient: Total time spent is greater than 50% in coordination of care (as documented) at patient's floor/unit and/or counseling patient: [place] [id number] Initial Inpt Care Lvl 3 Patient Type Established Diagnoses Interstitial lung disease J84.9 Smoker F17.[address] scan, chest R93.89 Chronic hypoxemic respiratory failure J96.11
[2020-02-03] MEDS: ENOXAPARIN INJ 30 MG/0.3 ML SYR SQ SCH (19:21)
[2020-02-03] MEDS: AMITRIPTYLINE HCL 50 MG TAB PO SCH (19:22)
[2020-02-04] MEDS: ESCITALOPRAM OXALATE 20 MG TAB PO SCH (08:01)
[2020-02-04] MEDS: PANTOprazole 40 MG TAB PO SCH (08:01)
[2020-02-04] MEDS: GABAPENTIN 300 MG CAP PO SCH ×3 (08:01→20:09)
[2020-02-04] MEDS ORDERED: DOCUSATE SODIUM/SENNA 50/8.6MG TAB PO SCH (09:00)
[2020-02-04] MEDS: HYDROCODONE/ACETAMOPHEN 5/325MG TAB PO PRN (10:09)
[2020-02-04] MEDS ORDERED: predniSONE 20 MG TAB PO ONE (14:22)
--- NOTE | 2020-02-04 15:40 | Hospitalist Progress Note ---
Date of Service February 04, 2020 Assessment & Plan (1) Hypoxia: 79 year old female with history of CAD, CVA, HTN, HLD, RA, Chronic Pain Syndrome, Tobacco Use, presenting with Hypoxia. (1) ACUTE HYPOXIC RESPIRATORY FAILURE POSSIBLE EXACERBATION OF UNDERLYING INTERSTITIAL LUNG DISEASE, COPD CT chest: 1. No pulmonary emboli identified although segmental and subsegmental pulmonary arteries suboptimally assessed given respiratory motion. 2. Findings consistent with interstitial lung disease with pulmonary fibrosis. No superimposed consolidation. Mild groundglass opacity may reflect a mild superimposed infectious process, pulmonary edema or active alveolitis. 3. Cardiomegaly. Blood culture: negative x 48 hours Sputum culture: pending collection Covid test: pending improving clinically, weaned off oxygen Pulmonary consulted--> recommend to d/c antibiotics, Solumedrol saturating well on room air continue short Prednisone taper then 10mg po daily for RA continue Trelegy Ellipta will need 2 step O2 test once Covid is negative (2) INTERSTITIAL LUNG DISEASE management as noted above (3) Rheumatoid arthritis: usually on Methotrexate, Gabapentin--> managed by PCP apparently PCP discontinued Methotrexate, and currently managed on Tramadol given Solumedrol 40mg q6h arthralgias and edema significantly improved now on Prednisone taper per Retail Merchandiser Dr. Luna, will need to be at least on Prednisone 10mg po daily until seen at the Rheumatology clinic [place] [facility] for pain (4) Smoker: Per admitting MD: Advised to quit. Notes report nicoderm patches which she declines. She reports she would like to quit smoking but is planning to do this "cold turkey." (5) Depression: Per admitting MD: PCP note from 12/2019 reveals discontinuation of Buspar. She is taking amitrptiline 50 qHS and Lexapro 20mg PO qAM. (6) Chronic pain: has a h/o of narcotic use but now relies on gabapentin, tylenol (reports 500mg TID), Ibuprofen (reports 400mg TID) and is now also using Tramadol (reports 50mg BID). Cont supportive care. CK 36- normal (7) DVT prophylaxis: Lovenox Full code as discussed w patient on admission. Disposition anticipate d/c home when medically stable ff up with PCP, American Sign Language Interpreter, Retail Merchandiser (2) Bronchiectasis: ? flare, however, imaging appears improved from prior in Jul 2019. Discussed peripherally with pulmonary provider electronic device repairer who is familiar with her case. He recommends this could be managed as outpatient, however, agrees with continuing current antibiotics now that she is being hospitalized. No h/o pseudomonas with current sputum culture pending. Level of illness is not serious, and she is not septic despite meeting SIRS criteria. Would not empirically cover for pseudomonas until the need arises from clinical deterioration or culture results. Solumedrol for wheezing and to help with poss RA flare. Neb treatments scheduled along with chest PT and flutter valve treatments. Appreciate pulm dispo recs in am. (3) Rheumatoid arthritis: Very difficult history of medication administration to gather as patient is a poor historian. She reports being told to stop her MTX one month ago, and since that time, has had significant pain. Her last PCP office note from her FP clinic in [place] says nothing about stopping MTX, however, it doesn't list her as being on it. She reports that her digital asset manager in [place] was upset that she stopped it and encouraged her to restart it. However, there is no documentation of this conversation or instruction in the record. She declined her telehealth evaluation with Rheumatology and was scheduled for her first time visit with them in May of this year. For now, cont steroids until her medication issue can be more clearly understood. Will discuss with Rheumatology some recommendations for her. (4) Smoker: Advised to quit. Notes report nicoderm patches which she declines. She reports she would like to quit smoking but is planning to do this "cold turkey." (5) Depression: PCP note from 12/2019 reveals discontinuation of Buspar. She is taking a mitrptiline 50 qHS and Lexapro 20mg PO qAM. (6) Chronic pain: has a h/o of narcotic use but now relies on gabapentin, tylenol (reports 500mg TID), Ibuprofen (reports 400mg TID) and is now also using Tramadol (reports 50mg BID). Cont supportive care. With myalgias, hold statin, check CK. (7) DVT prophylaxis: Lovenox Full code as discussed w patient on admission. Dispo -likely to home in 1-2 days. Of note, held off consulting PT/OT at this time pending COVID status, as they are nonessential and would like to minimize their exposure. Connie Baugh, DO [facility] Hospitalist Admission and Anticipated Discharge Date Admission Date: February 02, 2020 Anticipated date of discharge: 02/04/20 Subjective ff up for RA flare seen resting in bedside chair comfortable, on room air states she feels improved today compared to yesterday less joint, body aches denies SOB, cough, sputum, chills denies other symptoms Review of Systems Review of Systems: All systems reviewed & are unremarkable except as noted in HPI & below Physical Exam Physical Exam: General- oriented x 3, not in distress, speaks in sentences with no effort or accessory muscle use Eyes- anicteric Neck- no JVD Lungs- mild velcro rales at the bases no wheezing Heart- normal rate, regular rhythm; no murmurs Abdomen- normal bowel sounds, nondistended, soft, nontender Extremities- no pretibial edema, no calf tenderness BL hands- edema resolved BL knees- edema resolving Neuro- alert, oriented x 3; no gross focal neurologic deficits Skin- warm & dry Results & Data Results & Data ([facility]) Vital Signs (Past 12 Hours) Vital Signs Temp Pulse Pulse Resp BP Pulse Ox 02/04/20 08:28 98 H 02/04/20 04:51 36.6 C 72 18 120/66 95
[2020-02-04] MEDS: TRAMADOL HCL 50 MG TABLET PO PRN (20:06)
[2020-02-04] MEDS: ENOXAPARIN INJ 30 MG/0.3 ML SYR SQ SCH (20:09)
[2020-02-04] MEDS: AMITRIPTYLINE HCL 50 MG TAB PO SCH (20:09)
[2020-02-05] MEDS: HYDROCODONE/ACETAMOPHEN 5/325MG TAB PO PRN ×4 (00:55→13:35)
[2020-02-05 02:09] LABS: SARS CoV2 RNA (COVID-19) NOT DETECTED (NOT DETECTED)
[2020-02-05] MEDS ORDERED: DOCUSATE SODIUM/SENNA 50/8.6MG TAB PO SCH (08:00)
[2020-02-05 08:43] LABS: Creatinine Clr Calc Pharmacy 49.4 ml/min; Est GFR (African American) 93.6; Est GFR (Non-African American) 80.8
[2020-02-05] MEDS: ESCITALOPRAM OXALATE 20 MG TAB PO SCH (08:57)
[2020-02-05] MEDS: PANTOprazole 40 MG TAB PO SCH (08:58)
[2020-02-05] MEDS: GABAPENTIN 300 MG CAP PO SCH ×2 (08:58→13:36)
[2020-02-05] MEDS ORDERED: predniSONE 20 MG TAB PO ONE (09:00)
[2020-02-05] MEDS: TRAMADOL HCL 50 MG TABLET PO PRN (11:06)
--- NOTE | 2020-02-05 12:38 | Hospitalist Progress Note ---
Date of Service February 05, 2020 Assessment & Plan (1) Hypoxia: 79 year old female with history of CAD, CVA, HTN, HLD, RA, Chronic Pain Syndrome, Tobacco Use, presenting with Hypoxia. (1) ACUTE HYPOXIC RESPIRATORY FAILURE POSSIBLE EXACERBATION OF UNDERLYING INTERSTITIAL LUNG DISEASE, COPD CT chest: 1. No pulmonary emboli identified although segmental and subsegmental pulmonary arteries suboptimally assessed given respiratory motion. 2. Findings consistent with interstitial lung disease with pulmonary fibrosis. No superimposed consolidation. Mild groundglass opacity may reflect a mild superimposed infectious process, pulmonary edema or active alveolitis. 3. Cardiomegaly. Blood culture: negative x 48 hours Sputum culture: pending collection Covid test: pending improving clinically, weaned off oxygen Pulmonary consulted--> recommend to d/c antibiotics, Solumedrol saturating well on room air given Solumedrol , then Prednisone taper then 10mg po daily for RA continue Trelegy Ellipta 2 step test: requires 2 L O2 via nasal cannula, will be arranged Covid test: negative (2) INTERSTITIAL LUNG DISEASE management as noted above (3) Rheumatoid arthritis: usually on Methotrexate, Gabapentin--> managed by PCP apparently PCP discontinued Methotrexate, and currently managed on Tramadol given Solumedrol 40mg q6h arthralgias and edema significantly improved Prednisone tapered per Etiquette Coach Dr. Luna, will need to be at least on Prednisone 10mg po daily until seen at the Rheumatology clinic [place] for pain, PDMP queried, no issues discussed with Dr. Luna on admission day, agree with plan above, his office will call her on Wednesday 02/07 for Telemedicine consult this coming week (4) Smoker: discussed with patient emphasized importance of quitting smoking to prevent progression of already compromised lung function she is agreeable to try nicoderm patch again advised to work closely with PCP to quit smoking (5) Depression: Per admitting MD: PCP note from 12/2019 reveals discontinuation of Buspar. She is taking amitrptiline 50 qHS and Lexapro 20mg PO qAM. (6) Chronic pain: has a h/o of narcotic use but now relies on gabapentin, tylenol (reports 500mg TID), Ibuprofen (reports 400mg TID) and is now also using Tramadol (reports 50mg BID). Cont supportive care. CK 36- normal -- management per #3 (7) DVT prophylaxis: Lovenox given Full code as discussed w patient on admission. Disposition anticipate d/c home today ff up with PCP, Factory Maintenance Manager, Etiquette Coach Admission and Anticipated Discharge Date Admission Date: February 02, 2020 Anticipated date of discharge: 02/04/20 Subjective ff up for RA flare seen resting in bed, comfortable not in distress sitting up , in good spirits states she feels fine overall intermittent cough, no sputum, no SOB, no chills hand, knee joint pain much better no other symptoms states she would like to be discharged today Review of Systems Review of Systems: All systems reviewed & are unremarkable except as noted in HPI & below Physical Exam Physical Exam: General- oriented x 3, not in distress, speaks in sentences with no effort or accessory muscle use Eyes- anicteric Neck- no JVD Lungs- mild velcro rales at the bases no wheezing good air entry bilaterally Heart- normal rate, regular rhythm; no murmurs Abdomen- normal bowel sounds, nondistended, soft, nontender Extremities- no pretibial edema, no calf tenderness hands- no edema, warmth, tenderness of joints, full ROM knees- mild edema of the right knee- chronic per patient but no warmth/tender ness, has full ROM left knee- essentially normal Neuro- alert, oriented x 3; no gross focal neurologic deficits Skin- warm & dry Results & Data Results & Data ([facility]) Vital Signs (Past 12 Hours) Vital Signs Temp Pulse Pulse Pulse Pulse Pulse Pulse 02/05/20 11:48 94 H 106 H 81 86 02/05/20 11:21 36.7 C 75 02/05/20 08:00 36.4 C L 66 02/05/20 05:24 36.8 C 64 02/05/20 00:58 36.7 C 71 Resp Resp Resp Resp Resp BP Pulse Ox 02/05/20 11:48 22 22 18 18 02/05/20 11:21 22 120/72 95 02/05/20 08:00 20 134/75 93 02/05/20 05:24 18 129/71 95 02/05/20 00:58 18 127/72 91 Pulse Ox Pulse Ox Pulse Ox Pulse Ox 02/05/20 11:48 94 85 L 90 92 02/05/20 11:21 02/05/20 08:00 02/05/20 05:24 02/05/20 00:58
--- NOTE | 2020-02-05 13:22 | Ultrasound Report ---
US venous doppler LE RT CLINICAL HISTORY: 79 years-old Female presenting with r/o dvt. TECHNIQUE: Real-time grayscale and color and spectral Doppler ultrasound imaging of the veins of the right lower extremity was performed. Compression and augmentation were also utilized. COMPARISON: None. FINDINGS: RIGHT: Common femoral vein: Patent. Greater saphenous vein (superficial): Patent. Deep femoral vein: Patent. Femoral vein: Patent. Popliteal vein: Patent. Calf veins: Patent. Other: None. IMPRESSION: No evidence of deep venous thrombosis. ACT 112: Negative or not required by law. Electronically signed by: Chip Garza M.D. 02/05/2020 1:20 PM
--- NOTE | 2020-02-05 15:37 | Discharge Summary ---
Date of Service February 05, 2020 Admission HPI Per Admitting Provider 79 yo F smoker with active RA and known ILD with bronchiectasis presents for worsening pain and stiffness in her body throughout. She reports stopping her MTX one month ago because her physician told her to (there was no instruction for this on the last progress note, however, MTX was also not on the medication list). She also reports coughing with a change in sputum and dyspnea over the past week. She denies fevers or chills. she denies GI side effects. She reports some confusion. OVerall she is mentating clearly today but is a very poor historian. She also mentioned speaking with her transformer mechanic at [facility] who was "very upset" that she stopped her MTX. However, this conversation or instruction was not documented in the outpatient record. She continues to smoke 1 ppd. Denies ETOH use. Lives at home with her daughter. Admission Exam Per Admitting Provider CONSTITUTIONAL: thin, frail appearing, vitals as above, NAD EYES: EOMI bilaterally, PERRL, normal conjunctivae, no scleral icterus ENT: external ear and nose normal, oropharynx clear with dry mucous membranes, no maxillary or ethmoid sinus tenderness NECK: trachea midline, no lymphadenopathy RESPIRATORY: diffuse crackles and wheezes throughout with diminished breath sounds. normal respiratory effort, no conversational dyspnea at rest. CARDIOVASCULAR: regular rate and rhythm, S1 and 2 heard without murmurs, gallops or rubs, no JVD, no peripheral edema GASTROINTESTINAL: soft, nontender, nondistended MUSCULOSKELETAL: difficult to move 2/2 pain, arms and legs are stiff generally without gross focal deficit. Strength is 4/5 throughout. Pt cannot flex arms forward 2/2 pain. Joint exam: +warmth and swelling around MCP/PIP of left ring and middle finger. Wrists and other metacarpal joints not involved. No erythema. Restricted gripping motion with hands 2/2 pain. No shoulder joint TTP. Legs are generally stiff and weak with limited capability to flex. Passive ROM is notmal however, and no knee pain or effusion was noted. L ankles painfull to palpation without erythema, warmth or swelling. Nails unkempt throughout. SKIN: warm and dry NEUROLOGIC: patellar DTRs 2+ bilat. PERRL, EOMI, no facial palsy, no dysarthria. CN 2-12 grossly intact, no sensory deficit, normal cognition, normal speech PSYCHIATRIC: alert cooperative and oriented to person, place and time. Principal Diagnosis RHEUMATOID ARTHRITIS FLARE UP Discharge Exam General- oriented x 3, not in distress, speaks in sentences with no effort or accessory muscle use Eyes- anicteric Neck- no JVD Lungs- mild velcro rales at the bases no wheezing good air entry bilaterally Heart- normal rate, regular rhythm; no murmurs Abdomen- normal bowel sounds, nondistended, soft, nontender Extremities- no pretibial edema, no calf tenderness hands- no edema, warmth, tenderness of joints, full ROM knees- mild edema of the right knee- chronic per patient but no warmth/tenderness, has full ROM left knee- essentially normal Neuro- alert, oriented x 3; no gross focal neurologic deficits Skin- warm & dryVVVVVV Discharge Data Allergies Allergy/AdvReac Type Severity Reaction Status Date / Time albuterol AdvReac Intermediate JITTERY Verified 02/02/20 12:04 FROM ALBUTEROL NEBS Consultations 02/02/20 13:58 ED Decision to Admit Stat 02/02/20 16:13 Consult Case Management - Discharge Planning Routine 02/02/20 16:29 Consult Pulmonology Routine Ordered Studies 02/02/20 11:40 CT head/brain wo con CT DOSE: 1027.49 mGy.cm HISTORY: Weakness. Confusion. weakness, confusion TECHNIQUE: Multiaxial CT images of the head were performed without the use of intravenous contrast. A dose lowering technique was utilized adhering to the principles of ALARA. Comparison: None. Findings: The paranasal sinuses and mastoid air cells are clear. The calvarium and skull base are intact. The ventricles and sulci are within normal limits. There is no mass, hematoma, midline shift, or acute infarct. Considerable chroni c small vessel change. Impression: No acute intracranial abnormality. Considerable age-related chronic small vessel change. 02/02/20 11:42 CT abd pelvis IV con only Stat FINDINGS: Lung bases show diffuse bilateral parenchymal infiltrative/fibrotic change. Bulk of these findings appear to be chronic based on the chest series of 07/26/2019. Liver and spleen appear uniform. There is biliary ductal prominence presumably a postoperative basis. Pancreas is atrophied. Kidneys demonstrate several small subcentimeter cortical cyst but are negative for hydronephrosis. The bowel pattern overall is nonobstructive. Bladder is mildly distended. There are bilateral hip prosthetics. There is considerable degenerative change of the low thoracic as well as lumbar spine. IMPRESSION:: 1. Diffuse bibasilar parenchymal fibrosis the bulk of which is most likely chronic. 2. Chronic and age-related findings of the abdomen and pelvis with no acute process. CT angio chest PE protocol Stat FINDINGS: This exam is compromised by motion artifact. No pulmonary emboli are identified. There is no thoracic aortic dissection. Note is made of moderate cardiomegaly. There is no pericardial effusion. Prominent thoracic lymph nodes have decreased in size since CT of July 22, 2019. There is no pneumothorax or pleural effusion. Lungs are suboptimally assessed given respiratory motion. Note is made of extensive interstitial lung disease with reticulation, groundglass opacities and traction bronchiectasis. No superimposed consolidation is present. There may be mild superimposed groundglass opacity. No cavitation is present. The abdomen and pelvis will be reported separately. IMPRESSION: 1. No pulmonary emboli identified although segmental and subsegmental pulmonary arteries suboptimally assessed given respiratory motion. 2. Findings consistent with interstitial lung disease with pulmonary fibrosis. No superimposed consolidation. Mild groundglass opacity may reflect a mild superimposed infectious process, pulmonary edema or active alveolitis. 3. Cardiomegaly. 02/05/20 13:00 US venous doppler LE RT Routine IMPRESSION: No evidence of deep venous thrombosis. Hospital Course (1) Hypoxia: 79 year old female with history of CAD, CVA, HTN, HLD, RA, Chronic Pain Syndrome, Tobacco Use, presenting with Hypoxia. (1) ACUTE HYPOXIC RESPIRATORY FAILURE POSSIBLE EXACERBATION OF UNDERLYING INTERSTITIAL LUNG DISEASE, COPD CT chest: 1. No pulmonary emboli identified although segmental and subsegmental pulmonary arteries suboptimally assessed given respiratory motion. 2. Findings consistent with interstitial lung disease with pulmonary fibrosis. No superimposed consolidation. Mild groundglass opacity may reflect a mild superimposed infectious process, pulmonary edema or active alveolitis. 3. Cardiomegaly. Blood culture: negative x 48 hours Sputum culture: pending collection Covid test: Negative [facility] [place] Engineer consulted: Dr. More--> recommend to d/c antibiotics, Solumedrol given Solumedrol , then Prednisone taper then 10mg po daily for RA improved clinically, weaned off oxygen saturating well on room air continue Trelegy Ellipta 2 step test: requires 2 L O2 via nasal cannula, arranged ff up with [facility] [place] More in 3-4 weeks (2) INTERSTITIAL LUNG DISEASE management as noted above (3) Rheumatoid arthritis: usually on Methotrexate, Gabapentin--> managed by PCP apparently PCP discontinued Methotrexate, and currently managed on Tramadol given Solumedrol 40mg q6h arthralgias and edema significantly improved Prednisone tapered per [facility] Senior Compensation Analyst Dr. Luna, will need to be at least on Prednisone 10mg po daily until seen at the Rheumatology clinic [place] PR[facility] for pain, PDMP queried, no issues discussed with Dr. Luna on discharge day, agree with plan above, his office will call her on Wednesday 02/07 for Telemedicine consult this coming week (4) Smoker: discussed with patient emphasized importance of quitting smoking to prevent progression of already compromised lung function she is agreeable to try nicoderm patch again advised to work closely with PCP to quit smoking (5) Depression: Per admitting MD: PCP note from 12/2019 reveals discontinuation of Buspar. She is taking amitryptiline 50 qHS and Lexapro 20mg PO qAM. (6) Chronic pain: has a h/o of narcotic use but now relies on gabapentin, tylenol (reports 500mg TID), Ibuprofen (reports 400mg TID) and is now also using Tramadol (reports 50mg BID). CK 36- normal -- management per #3 (7) DVT prophylaxis: Lovenox given Disposition d/c home with home health services plan of care, new medications discussed with patient in detail and at length all questions answered she verbalized understanding, agreement and is comfortable with the plan of care ff up with PCP, Python Engineer, Senior Compensation Analyst Total Time Total Time Spent Total Time Spent (In Minutes): 65 minutes Discharge Plan Discharge Items Patient Disposition: Home - Home Health Services Reason For Visit: HYPOXIA,POSSIBLE FLARE ILD Discharge Diagnosis: RHEUMATOID ARTHRITIS FLARE Activity: As commented below Activity Comment: RESUME ACTIVITY GRADUALLY TOLERATED Lifting: Wait until after follow-up appointment Exercise/Sports: Wait until after follow-up appointment Driving/Machine Use: NO DRIVING Non-emergency contact: Primary Care Provider Call non-emergency contact if: you have any medication questions, your symptoms worsen, your pain is not controlled, your pain is worsening, your pain is unusual for you, your pain is concerning for you and you have a fever Follow-up/Referrals: Cristhian More MD [Physician] - Vanessa Malone [Primary Care Provider] - Abebe Neely MD [Physician] - Diet: Heart Healthy Addtl Attending Provider Instructions: PLEASE REVIEW YOUR NEW MEDICATION LIST AND FOLLOW INSTRUCTIONS CAREFULLY. PREDNISONE- for rheumatoid arthritis NORCO- for pain SENOKOT S - stool softener DO NOT STOP PREDNISONE WITHOUT CONSULTING WITH YOUR PRIMARY CARE PHYSICIAN OR NETWORK CONTROL OPERATORS SUPERVISOR. DO NOT TAKE MORE THAN 3,000MG OF ACETAMINOPHEN PER DAY. ALWAYS USE OXYGEN 2 LITERS VIA NASAL CANNULA WHILE AMBULATING. FOLLOW UP WITH PRIMARY CARE PHYSICIAN IN 1 WEEK. FOLLOW UP WITH [facility] NETWORK CONTROL OPERATORS SUPERVISOR DR. LUNA NEXT WEEK. HIS CLINIC WILL BE CALLING YOU FOR THE APPOINTMENT. FOLLOW UP WITH LOG HAUL OPERATOR DR. MORE IN 3-4 WEEKS. PLEASE CALL HIS CLINIC FOR AN APPOINTMENT. CONTACT INFORMATION NOTED ABOVE. CALL YOUR PRIMARY CARE PHYSICIAN OR RETURN TO THE ER IMMEDIATELY IF WITH RECURRENCE OR WORSENING OF SYMPTOMS, INCREASING PAIN, COUGH, FEVER/CHILLS, ETC. Pending Studies at Discharge: No Stand-Alone Forms: [facility], Smoking Cessation Medications and DC Order Prescriptions: New hydrocodone-acetaminophen [[place]] 5-325 mg Tablet 1 tab PO Q8H PRN (Reason: PAIN) Qty: 10 RF: 0 sennosides-docusate sodium [Senokot-S] 8.6-50 mg Tablet 1 tab PO DAILY@0800 Qty: 30 RF: 1 prednisone 10 mg tablet 10 mg PO DAILY Qty: 30 RF: 2 Continued Trelegy Ellipta 100-62.5-25 mcg Blister With Device 1 inh INHALATION DAILY RF: 0 atorvastatin 20 mg tablet 20 mg PO DAILY RF: 0 amitriptyline 50 mg tablet 50 mg PO HS RF: 0 gabapentin 300 mg capsule 300 mg PO TID RF: 0 escitalopram oxalate 20 mg tablet 20 mg PO QAM RF: 0 pantoprazole 20 mg tablet,delayed release (DR/EC) 20 mg PO DAILY RF: 0 albuterol sulfate 90 mcg/actuation HFA aerosol inhaler 2 puff inhalation Q6H PRN (Reason: Shortness Of Breath Or Wheezing) RF: 0 tramadol 50 mg tablet 50 mg PO Q8H PRN (Reason: Pain) RF: 0 Discharge Orders: Discharge Order (Routine); Ordered 02/05/20 Ordered By: Cal Mi Admission Data Admit Date/Time: 02/02/20 14:32 Attending Provider: Cal Mi Admit Provider: Connie Baugh Primary Care Provider: Vanessa Malone Other Providers: Connie Baugh ; Cristhian More Other Interventions: Discharge Summary Assessment (RN) Last Done: 02/05/20 14:55
== END 2020-02-05 17:05 | disposition home health service (06) | DRG 196 ==
LOC: ED 11:22 → SUATTDRO 14:32 → 2S 14:32